=== PATIENT | female | born 1960 | race Two or more races ===

== ENCOUNTER 2020-05-01 11:09 | Outpatient (REF) | payer OTHER, SELFPAY ==
--- NOTE | 2020-05-01 | MM_ITS ---
EXAMINATION: MM SCREENING DIGITAL BREAST TOMOSYNTHESIS, BILATERAL CLINICAL INFORMATION: Screening. Asymptomatic. No known family history breast cancer. Remote history benign left breast surgery. The lifetime risk of breast cancer based on the Tyrer-Cuzick Model is 5%. COMPARISON: Mammography: 02/21/2019, 05/03/2018, 01/12/2017, 11/01/2015 TECHNIQUE: Digital breast tomosynthesis is performed in both the craniocaudal and mediolateral oblique views along with computer-aided detection (CAD). Synthesized 2D images are generated from the tomosynthesis. FINDINGS: There are scattered areas of fibroglandular density (ACR BI-RADS breast composition Category b). There are no significant masses, abnormal calcifications, or other abnormalities. There is asymmetry of the breasts, the right is larger, similar to prior studies. Parenchymal pattern is similar to previous exams. There are no significant changes. IMPRESSION: No significant changes from prior studies. ASSESSMENT: BI-RADS 2: Benign RECOMMENDATION: Routine annual mammography screening. This patient's information was entered into a reminder system with a target due date for their next mammogram.
== END 2020-05-01 11:10 | disposition home or self-care (01) ==
LOC: HO.MAMMO 11:09
PROVIDERS: PCP Internal Medicine; Visit Provider Internal Medicine
DX: Z12.31 Encounter for screening mammogram for malignant neoplasm of breast (principal)
CPT/HCPCS: 77063; 77067

== ENCOUNTER 2020-05-15 08:21 | Outpatient (REF) | payer OTHER, SELFPAY ==
--- NOTE | 2020-05-15 08:25 | XR_ITS ---
EXAMINATION: XR SHOULDER, RIGHT CLINICAL INFORMATION: Pain right shoulder COMPARISON: None TECHNIQUE: AP external rotation, Grashey, scapular Y, and axillary views of the right shoulder. FINDINGS: There is loss of right glenohumeral joint space with inferior spurring. Mild loss of right AC joint as well as noted. No visible acute fracture, dislocation or subluxation seen. There is no lytic process. The soft tissues are normal. XR/XR shoulder RT min 2V IMPRESSION: Mild degenerative changes right shoulder joint. No visible acute fracture or dislocation seen.
== END 2020-05-15 08:22 | disposition home or self-care (01) ==
LOC: HO.HOSX 08:21
PROVIDERS: PCP Internal Medicine; Referring Provider Internal Medicine; Visit Provider Orthopaedic Surgery
DX: M25.511 Pain in right shoulder (principal); M75.51 Bursitis of right shoulder
CPT/HCPCS: 20610; 73030; J1100

== ENCOUNTER 2020-06-16 12:36 | Outpatient (REF) | payer OTHER, SELFPAY ==
[2020-06-16 14:01] LABS: Anion Gap 12 (12-20); Blood Urea Nitrogen 15 mg/dL (9-16); Calcium 9.1 mg/dL (8.4-10.2); Carbon Dioxide 30 mmol/L (22-29); Chloride 105 mmol/L (96-108); Estimated Glomerular Filt Rate 58; Potassium 4.2 mmol/l (3.3-5.1); Sodium 143 mmol/L (135-145)
[2020-06-16 14:23] LABS: Free T4 (Free Thyroxine) 0.75 ng/dL (0.71-1.85); Thyroid Stimulating Hormone 1.66 uIU/mL (0.32-4.0); Vitamin D 25-OH Total 21.8 ng/mL (>30)
[2020-06-18 12:12] LABS: Calcium (PTHI) 9.4 mg/dL (8.6-10.4); PTHI 34 pg/mL (14-64)
== END 2020-06-16 12:37 | disposition home or self-care (01) ==
LOC: HO.LAB 12:36
PROVIDERS: PCP Internal Medicine; Visit Provider Internal Medicine Endocrinology, Diabetes & Metabolism
DX: E21.3 Hyperparathyroidism, unspecified (principal)
CPT/HCPCS: 80051; 82306; 82310; 82565; 83970; 84439; 84443; 84520

== ENCOUNTER 2020-09-26 08:47 | Outpatient (REF) | payer OTHER, SELFPAY | END 2020-09-26 08:48 | disposition home or self-care (01) | LOC: HO.LAB 08:47 | PROVIDERS: Visit Provider Internal Medicine | DX: Z20.822 Contact with and (suspected) exposure to COVID-19 (principal) | CPT/HCPCS: 36415; C9803; U0003; U0005 ==

== ENCOUNTER 2020-11-03 09:57 | Outpatient (REF) | payer OTHER, SELFPAY ==
[2020-11-03 10:19] LABS: COVID-19 Test Negative (Negative)
== END 2020-11-03 09:58 | disposition home or self-care (01) ==
LOC: HO.LAB 09:57
PROVIDERS: Visit Provider Internal Medicine
DX: Z20.822 Contact with and (suspected) exposure to COVID-19 (principal)
CPT/HCPCS: 36415; 87635; C9803

== ENCOUNTER 2021-03-07 08:41 | Outpatient (REF) | payer OTHER, SELFPAY ==
[2021-03-07 11:11] LABS: MANUAL DIFF FLAG NO
[2021-03-07 11:32] LABS: Basophils Absolute Auto 0.1 X10*3/uL (0.0-0.2); Basophils Percent Auto 0.6 % (0-2); Eosinophils Absolute Auto 0.2 X10*3/uL (0.0-0.4); Eosinophils Percent Auto 1.8 % (0-4); Hematocrit 39.8 % (37-47); Hemoglobin 12.9 g/dl (12.0-16.0); Imm Gran Abs Auto 0.05 X10*3/uL (0.00-0.03); Imm Gran Pct Auto 0.5 % (0.0-0.4); Lymphocytes Absolute Auto 3.2 X10*3/uL (1.2-4.9); Mean Corpuscular HGB Conc 32.4 g/dl (31.0-35.0); Mean Corpuscular Hemoglobin 28.7 pg (27.0-33.0); Mean Corpuscular Volume 88.6 fL (80-98); Mean Platelet Volume 10.9 fL (9.4-12.3); Monocytes Absolute Auto 0.5 X10*3/uL (0.1-1.2); Monocytes Percent Auto 5.1 % (2-11); Neutrophils Absolute Auto 5.8 X10*3/uL (2.0-8.3); Platelet Count 209 X10*3/uL (160-400); Red Blood Count 4.49 X10*6/uL (4.20-5.50); Red Cell Distribution Width 13.2 % (11.0-16.0); White Blood Count 9.8 X10*3/uL (4.8-10.8)
[2021-03-07 12:12] LABS: Alanine Aminotransferase 26 U/L (0-31); Anion Gap 12 (12-20); Aspartate Amino Transferase 18 U/L (5-31); Blood Urea Nitrogen 18 mg/dL (9-16); Calcium 9.6 mg/dL (8.4-10.2); Carbon Dioxide 27 mmol/L (22-29); Chloride 107 mmol/L (96-108); Cholesterol 194 mg/dL; Estimated Glomerular Filt Rate > 60; Glucose Fasting 92 mg/dL (60-99); HDL Cholesterol 41 mg/dL; Iron 72 mcg/dL (30-160); LDL Cholesterol Calculated 130 mg/dl; Sodium 142 mmol/L (135-145); Triglycerides 119 mg/dL
[2021-03-07 12:28] LABS: Vitamin D 25-OH Total 18.5 ng/mL (>30)
[2021-03-11 15:06] LABS: Percent Iron Saturation 21 % (15-50); Total Iron Binding Capacity 345 mcg/dL (228-428); Unsaturated Iron Binding 273 ug/dL
== END 2021-03-07 08:42 | disposition home or self-care (01) ==
LOC: HO.HMGCLDS 08:41
PROVIDERS: PCP Internal Medicine; Visit Provider Internal Medicine
DX: E78.5 Hyperlipidemia, unspecified (principal); R10.13 Epigastric pain; R42 Dizziness and giddiness; I10 Essential (primary) hypertension
CPT/HCPCS: 36415; 80048; 80061; 82306; 83540; 84450; 84460; 85025

== ENCOUNTER 2021-05-15 11:12 | Outpatient (REF) | payer OTHER, SELFPAY ==
--- NOTE | ~2021-05-15 | MM_ITS ---
EXAMINATION: MM SCREENING DIGITAL BREAST TOMOSYNTHESIS, BILATERAL CLINICAL INFORMATION: Screening. Asymptomatic. Remote history left breast surgery. The lifetime risk of breast cancer based on the Tyrer-Cuzick Model is 8%. COMPARISON: Mammography: 05/01/2020, 02/21/2019, 05/03/2018 TECHNIQUE: Digital breast tomosynthesis is performed in both the craniocaudal and mediolateral oblique views along with computer-aided detection (CAD). Synthesized 2D images are generated from the tomosynthesis. Additional left MLO view is provided. FINDINGS: There are scattered areas of fibroglandular density (ACR BI-RADS breast composition Category b). There are old postsurgical changes left breast with mild reduced breast size and stable scarring. Parenchymal pattern is similar to prior studies and there is no interval mass or architectural abnormality or abnormal calcifications. The axilla are unremarkable. There is deodorant artifact overlying the bilateral axilla on the MLO views, corresponding to the skin surface on tomography. MM/MM tomosynthesis screening BI IMPRESSION: No mammographic evidence of malignancy. ASSESSMENT: BI-RADS 2: Benign RECOMMENDATION: Routine annual mammography screening. This patient's information was entered into a reminder system with a target due date for their next mammogram.
== END 2021-05-15 11:13 | disposition home or self-care (01) ==
LOC: HO.MAMMO 11:12
PROVIDERS: Visit Provider Internal Medicine
DX: Z12.31 Encounter for screening mammogram for malignant neoplasm of breast (principal)
CPT/HCPCS: 77063; 77067

== ENCOUNTER 2021-08-28 12:33 | Outpatient (REF) | payer OTHER, SELFPAY ==
[2021-08-28 14:08] LABS: MANUAL DIFF FLAG NO
[2021-08-28 14:15] LABS: Basophils Absolute Auto 0.1 X10*3/uL (0.0-0.2); Basophils Percent Auto 0.4 % (0-2); Eosinophils Absolute Auto 0.2 X10*3/uL (0.0-0.4); Eosinophils Percent Auto 1.4 % (0-4); Hemoglobin 13.2 g/dl (12.0-16.0); Imm Gran Abs Auto 0.06 X10*3/uL (0.00-0.03); Imm Gran Pct Auto 0.5 % (0.0-0.4); Lymphocytes Absolute Auto 3.8 X10*3/uL (1.2-4.9); Lymphocytes Percent Auto 34.1 % (20-40); Mean Corpuscular HGB Conc 32.2 g/dl (31.0-35.0); Mean Corpuscular Hemoglobin 28.3 pg (27.0-33.0); Mean Corpuscular Volume 87.8 fL (80.0-98.0); Mean Platelet Volume 11.2 fL (9.4-12.3); Monocytes Absolute Auto 0.6 X10*3/uL (0.1-1.2); Monocytes Percent Auto 5.3 % (2-11); Neutrophils Absolute Auto 6.5 x10*3/uL (2.0-8.3); Neutrophils Percent Auto 58.3 % (45-73); Platelet Count 228 X10*3/uL (160-400); Red Blood Count 4.67 X10*6/uL (4.20-5.50); Red Cell Distribution Width 13.1 % (11.0-16.0); White Blood Count 11.2 X10*3/uL (4.8-10.8)
[2021-08-28 14:30] LABS: Alanine Aminotransferase 20 U/L (0-31); Anion Gap 11 (12-20); Aspartate Amino Transferase 18 U/L (5-31); Blood Urea Nitrogen 12 mg/dL (9-16); Calcium 10.2 mg/dL (8.4-10.2); Carbon Dioxide 30 mmol/L (22-29); Chloride 104 mmol/L (96-108); Cholesterol 205 mg/dL; Estimated Glomerular Filt Rate > 60; Glucose Fasting 82 mg/dL (60-99); HDL Cholesterol 39 mg/dL; LDL Cholesterol Calculated 129 mg/dl; Potassium 4.1 mmol/L (3.3-5.1); Sodium 141 mmol/L (135-145); Triglycerides 185 mg/dL
[2021-08-28 14:53] LABS: Vitamin D 25-OH Total 30.7 ng/mL (>30)
== END 2021-08-28 12:34 | disposition home or self-care (01) ==
LOC: HO.HMGCLDS 12:33
PROVIDERS: Visit Provider Internal Medicine
DX: E55.9 Vitamin D deficiency, unspecified (principal); R42 Dizziness and giddiness; E78.5 Hyperlipidemia, unspecified
CPT/HCPCS: 36415; 80048; 80061; 82306; 84450; 84460; 85025

== ENCOUNTER 2021-09-23 09:49 | Outpatient (REF) | payer OTHER, SELFPAY ==
--- NOTE | ~2021-09-23 | CT_ITS ---
EXAMINATION: CT HEAD WITHOUT CONTRAST CLINICAL INFORMATION: Headache COMPARISON: None. TECHNIQUE: Contiguous axial imaging was performed from the skull base to vertex without intravenous contrast. This CT examination was performed using dose optimization techniques as appropriate, variously including the following: * Automated exposure control * Adjustment of mA and/or kV according to patient size (this includes techniques or standardized protocols for targeted exams where dose is matched to indication/reason for exam; i.e. extremities or head) Use of iterative reconstruction technique DLP: 828 mGy-cm. FINDINGS: There is no evidence of acute intracranial hemorrhage or territorial infarction. No abnormal mass effect or midline shift is seen. [place] to white matter differentiation is well preserved. No extra-axial fluid collections are identified. No hydrocephalus. No significant volume loss. There is no abnormal attenuation within the brain parenchyma. The osseous structures and soft tissues are normal. The mastoid air cells and visualized portions of the paranasal sinuses are well aerated. CT/CT head/brain wo con IMPRESSION: No acute intracranial pathology.
== END 2021-09-23 09:50 | disposition home or self-care (01) ==
LOC: HO.CT 09:49
PROVIDERS: PCP Internal Medicine; Visit Provider Internal Medicine
DX: R51.9 Headache, unspecified (principal)
CPT/HCPCS: 70450

== ENCOUNTER → 2021-11-25 11:11 | Outpatient (BNVA) | payer OTHER, SELFPAY | PROVIDERS: PCP Internal Medicine; Visit Provider Urology | DX: N20.0 Calculus of kidney (principal) ==

== ENCOUNTER 2021-12-23 10:08 | Outpatient (REF) | payer OTHER, SELFPAY ==
--- NOTE | ~2021-12-23 | US_ITS ---
EXAMINATION: US RETROPERITONEAL LIMITED (RENAL ONLY) CLINICAL INFORMATION: Calculus of kidney. COMPARISON: KUB of this same date 12/24/2019 and 08/01/2019 CT abdomen and pelvis without contrast dated 05/15/2019. Renal ultrasound with bladder dated 12/14/2018. Renals only ultrasound dated 05/31/2018. TECHNIQUE: Real-time imaging of the kidneys. FINDINGS: RIGHT KIDNEY: 11.9 x 4.9 x 6.9 cm (SAG x AP x TRV). The kidney is normal in size, contour, and echogenicity. Renal cortical thickness is normal. No focal parenchymal lesions or hydronephrosis. At the lower pole, a 3 mm nonobstructing calculus is seen. LEFT KIDNEY: 11.4 x 6.4 x 5.4 cm (SAG x AP x TRV). The kidney is normal in size, contour, and echogenicity. Renal cortical thickness is normal. No focal parenchymal lesions or hydronephrosis. At the upper pole, a 5 mm nonobstructing calculus is seen. At the lower pole, a 5 mm nonobstructing calculus is seen. US/US renal BI IMPRESSION: Small nonobstructing bilateral renal calculi are seen, as detailed. No hydronephrosis is noted.
--- NOTE | ~2021-12-23 | XR_ITS ---
EXAMINATION: XR ABDOMEN KUB CLINICAL INDICATION: Calculus of kidney. COMPARISON: None TECHNIQUE: AP view of the abdomen. FINDINGS: There is scattered stool and gas seen throughout the colon without any significant distention. There is no organomegaly. No radiopaque foreign body seen. No gross bony abnormality. XR/XR KUB IMPRESSION: Mild constipation. No acute process seen.
== END 2021-12-23 10:09 | disposition home or self-care (01) ==
LOC: HO.HMGCX 10:08
PROVIDERS: PCP Internal Medicine; Visit Provider Urology
DX: N20.0 Calculus of kidney (principal)
CPT/HCPCS: 74018; 76775

== ENCOUNTER 2022-07-02 10:43 | Outpatient (REF) | payer OTHER, SELFPAY ==
--- NOTE | ~2022-07-02 | MM_ITS ---
EXAMINATION: MM SCREENING DIGITAL BREAST TOMOSYNTHESIS, BILATERAL CLINICAL INFORMATION: Screening. Asymptomatic. Remote history benign left breast surgery. The lifetime risk of breast cancer based on the Tyrer-Cuzick Model is 7%. COMPARISON: Mammography: 05/15/2021, 05/01/2020, 02/21/2019 TECHNIQUE: Digital breast tomosynthesis is performed in both the craniocaudal and mediolateral oblique views along with computer-aided detection (CAD). Synthesized 2D images are generated from the tomosynthesis. FINDINGS: There are scattered areas of fibroglandular density (ACR BI-RADS breast composition Category b). There are no significant masses, abnormal calcifications, or other abnormalities. Left breast postsurgical changes are again noted with mild reduced breast size and old scarring. There is no developing density or interval architectural abnormality. No significant changes. MM/MM tomosynthesis screening BI IMPRESSION: No mammographic evidence of malignancy. ASSESSMENT: BI-RADS 2: Benign RECOMMENDATION: Routine annual mammography screening. This patient's information was entered into a reminder system with a target due date for their next mammogram.
== END 2022-07-02 10:44 | disposition home or self-care (01) ==
LOC: HO.MAMMO 10:43
PROVIDERS: Visit Provider Internal Medicine
DX: Z12.31 Encounter for screening mammogram for malignant neoplasm of breast (principal)
CPT/HCPCS: 77063; 77067

== ENCOUNTER → 2022-08-19 09:08 | Outpatient (BNVA) | payer OTHER, SELFPAY | PROVIDERS: PCP Internal Medicine; Visit Provider Orthopaedic Surgery | DX: M75.01 Adhesive capsulitis of right shoulder (principal); M19.011 Primary osteoarthritis, right shoulder | CPT/HCPCS: 20610; J1100 ==

== ENCOUNTER 2022-09-01 08:48 | Outpatient (REF) | payer OTHER, SELFPAY ==
[2022-09-01 12:06] LABS: Hematocrit 42.4 % (37.0-47.0); Hemoglobin 13.4 g/dl (12.0-16.0); Mean Corpuscular HGB Conc 31.6 g/dl (31.0-35.0); Mean Corpuscular Volume 88.7 fL (80.0-98.0); Platelet Count 220 X10*3/uL (160-400); Red Blood Count 4.78 X10*6/uL (4.20-5.50); White Blood Count 10.8 X10*3/uL (4.8-10.8)
[2022-09-01 12:16] LABS: Alanine Aminotransferase 17 U/L (0-31); Albumin Level 4.2 g/dL (3.5-5.0); Alkaline Phosphatase 90 U/L (39-117); Anion Gap 11 (12-20); Aspartate Amino Transferase 13 U/L (5-31); Bilirubin Direct < 0.2 mg/dL (0.0-0.5); Bilirubin Total 0.4 mg/dL (0.0-1.0); Blood Urea Nitrogen 16 mg/dL (9-16); C Reactive Protein 0.61 mg/dL (< or = 0.50); Calcium 9.4 mg/dL (8.4-10.2); Carbon Dioxide 28 mmol/L (22-29); Chloride 107 mmol/L (96-108); Estimated Glomerular Filt Rate > 60; Glucose Random 98 mg/dL (60-115); Potassium 4.1 mmol/L (3.3-5.1); Sodium 142 mmol/L (135-145)
[2022-09-03 15:59] LABS: TS Negative Control Passed; TS Panel A 0; TS Panel B 0; TS Positive Control Passed; TSpotTB Negative (Negative)
== END 2022-09-01 08:49 | disposition home or self-care (01) ==
LOC: HO.HMGCLDS 08:48
PROVIDERS: PCP Internal Medicine; Visit Provider Internal Medicine
DX: Z11.1 Encounter for screening for respiratory tuberculosis (principal); K57.92 Diverticulitis of intestine, part unspecified, without perforation or abscess without bleeding
CPT/HCPCS: 36415; 80048; 80076; 85027; 86140; 86481

== ENCOUNTER 2022-09-04 16:12 | Emergency (ER) | payer OTHER, SELFPAY ==
--- NOTE | ~2022-09-04 | CT_ITS ---
EXAMINATION: CT ABDOMEN AND PELVIS WITH CONTRAST CLINICAL INFORMATION: Left-sided abdominal pain. COMPARISON: Renal ultrasound and KUB December 2021 TECHNIQUE: Multidetector volumetric images were obtained from the superior aspect of the liver through the pubic symphysis following administration 85 mL of Omnipaque 350 intravenous contrast. Sagittal and coronal reformatted images were obtained on the technologist's workstation. Oral contrast: Yes This CT examination was performed using dose optimization techniques as appropriate, variously including the following: *Automated exposure control *Adjustment of mA and/or kV according to patient size (this includes techniques or standardized protocols for targeted exams where dose is matched to indication/reason for exam; i.e. extremities or head) *Use of iterative reconstruction technique DLP: 7-8 mGy-cm FINDINGS: LUNG BASES: The visualized lung bases are unremarkable. LIVER, GALLBLADDER, AND BILIARY TREE: The liver is normal in size, and shape. The liver is low in attenuation suggestive of fatty infiltration. The liver is slightly enlarged.. No focal hepatic lesion or biliary ductal dilatation is present. The gallbladder is unremarkable with no evidence of radiopaque gallstones, gallbladder wall thickening, or obvious pericholecystic inflammatory changes. PANCREAS: Unremarkable. SPLEEN: Unremarkable. ADRENAL GLANDS: Unremarkable. KIDNEYS AND URETERS: There is left renal cortical thinning or scarring. There are small left renal stones, largest measuring 3 mm. There is mild left hydronephrosis. There are 2 small left renal pelvis stones, largest measuring 3 mm. There are 2 small cysts in the lower pole the left kidney compared. No imaging follow-up recommended. The right kidney is normal. No ureteral stone is seen. BLADDER: Unremarkable. GASTROINTESTINAL TRACT: Diverticulosis of the colon. No evidence of diverticulitis. The small and large bowel are unremarkable. The appendix is unremarkable. ABDOMINAL WALL: Small umbilical hernia containing fat. LYMPH NODES: Normal. VASCULAR: Unremarkable. PELVIC VISCERA: Unremarkable. OSSEOUS STRUCTURES: Degenerative changes of the spine CT/CT abdomen pelvis w IV con IMPRESSION: Left renal cortical thinning or scarring. Mild left hydronephrosis. There are small left renal stones and 2 small left renal pelvis stones, largest measuring 3 mm. Diverticulosis of the colon. No evidence of diverticulitis. Enlarged fatty liver. Fleischner guidelines were followed.
[2022-09-04 16:20] VITALS: BP 153/86; PULSE 93; RESP 20; TEMP 36.8; O2SAT 98; BMI 33.4
--- NOTE | 2022-09-04 16:43 | ED.GENADULT ---
HPI - General Adult General Chief complaint: Abdominal Pain Stated complaint: abd pain Time Seen by Provider: 09/04/22 16:30 Source: patient, RN notes reviewed and old records reviewed Mode of arrival: ambulatory Limitations: no limitations History of Present Illness HPI narrative: 61-year-old female past medical history significant for diverticulitis, obstructive uropathy, hyperlipidemia presents for evaluation of abdominal pain. Patient reports that she went to the urgent care 5 days ago for abdominal pain that she has had for about 1 week total now She states that she had some tests done but no imaging and was told ?everything was okay. ? She reports associated nausea vomiting, nonbloody diarrhea She also has decreased appetite. Denies any fevers, chills The patient notes that her pain is worse with eating She denies any history of abdominal surgeries Denies any sick contacts No other complaints or concerns at this time Related Data Previous Rx's Medication Instructions Recorded ciprofloxacin HCl 500 mg tablet 500 mg PO Q12H #14 tabs 09/01/22 omeprazole 20 mg capsule,delayed 20 mg PO DAILY #14 caps 09/01/22 release cefpodoxime 200 mg tablet 200 mg PO BID #14 tabs 09/04/22 ondansetron 4 mg disintegrating 4 mg PO Q8H PRN nausea and 09/04/22 tablet vomiting #20 tabs Allergies Allergy/AdvReac Type Severity Reaction Status Date / Time No Known Allergies Allergy Verified 09/01/22 08:21 [No Known Allergies*] Review of Systems Constitutional: Constitutional: Reports as per HPI, Denies chills and Denies fatigue Cardiovascular: Cardiovascular: Denies chest pain and Denies dyspnea Respiratory: Respiratory: Denies cough and Denies dyspnea Gastrointestinal: Gastrointestinal: Reports abdominal pain, Denies constipation, Reports nausea and Reports vomiting Genitourinary: Genitourinary: Denies dysuria Endocrine: Endocrine: Denies fatigue [facility] Past Medical History Attestation statement: The following information was validated with the patient. Source: old records reviewed Medical History Bursitis of right shoulder Dyslipidemia Epigastric pain Headache disorder High cholesterol Hypercalcemia Hyperparathyroidism Hyperuricosuria Lightheadedness Nephrolithiasis Right shoulder pain Vitamin D deficiency Surgical History H/O lithotripsy Family History Family History Father Asthma Mother Ovarian cancer Social History Social History Housing: Apartment Patient Tobacco Use Status: Never used Tobacco e-Cigarette/Vaping Use: Never Used Second Hand Smoke Exposure: No Advance Directives: No Advance Directives Information Provided: No service: No Current occupational status: employed 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 Physical Exam ED Vital Signs: Vital Signs - 24 hr 09/04/22 16:20 09/04/22 20:11 Temperature 98.3 F 100.4 F Pulse Rate 93 94 Respiratory Rate 20 26 H Blood Pressure 153/86 H 127/68 Pulse Oximetry 98 97 Oxygen Delivery Method Room Air Room Air BMI result Body Mass Index 33.4 Const General: healthy appearing, comfortable, no acute distress, alert and awake Nutritional Appearance: well nourished Orientation/consciousness: patient oriented x3 Eyes EOM: EOMs intact bilaterally Resp Effort & Inspection: normal respiratory effort, able to speak in complete sentences, no audible wheezes and not labored GI Inspection: No Abdominal wall edema, No distended and Yes obesity Palpation (GI): Soft to palpation, Tenderness to palpation present (GI) in the LLQ and in the LUQ; not in the epigastrum, not in the RLQ and not in the RUQ and not rigid Auscultation: normoactive bowel sounds Skin General skin exam: no rashes or lesions noted and elasticity normal Lesions: no lesions Rashes: no rashes Neuro General: patient oriented x3 Extrem General: Yes full ROM Course Reevaluation(s) Reevaluation #1: Patient's pain improved, CT scan shows no evidence of diverticulitis but does show mild left hydronephrosis with some renal stones. No evidence of obstructive uropathy. Patient's UA is consistent with UTI, will treat as such. Time: 20:44 Medications Administered Discontinued Medications Generic Name Dose Route Start Last Admin Trade Name Freq PRN Reason Stop Dose Admin Sodium Chloride 1,000 mls @ 999 mls/hr 09/04/22 16:40 09/04/22 20:47 Ns IV 09/04/22 17:40 Infused .Q1H1M STA Infusion Iohexol 100 ml 09/04/22 18:08 09/04/22 18:09 Iohexol 350 Mg/Ml 100 Ml Infus..Btl IV 09/04/22 18:09 85 ml ONCE ONE Administration Ondansetron HCl 4 mg 09/04/22 16:40 09/04/22 17:23 Ondansetron Hcl 4 Mg/2 Ml Vial IVPUSH 09/04/22 16:41 4 mg ONCE ONE Administration Medical Decision Making Medical Decision Making [facility] Narrative: A 61-year-old female presents for evaluation of 1 week of worsening left-sided abdominal pain. She reports a history of diverticulitis and has associated vomiting and diarrhea. Her vital signs are stable, she is afebrile. We will check labs including CT scan of the abdomen pelvis to evaluate for diverticulitis and/or extent. Review the UA as well. Patient medicated with IV fluids, Zofran. Her physical exam is reassuring, less likely to be surgical abdomen. Differential Diagnosis Diverticulitis Diverticular abscess Microperforation Constipation Colitis Viral syndrome Metabolic abnormality IBS Lab Data 09/04/22 16:47 09/04/22 16:47 Labs: Lab Results 09/04/22 09/04/22 09/04/22 Range/Units 16:47 16:47 20:14 WBC 8.7 (4.8-10.8) X10*3/uL RBC 4.71 (4.20-5.50) X10*6/uL Hgb 13.2 (12.0-16.0) g/dl Hct 40.4 (37.0-47.0) % MCV 85.8 (80.0-98.0) fL MCH 28.0 (27.0-33.0) pg MCHC 32.7 (31.0-35.0) g/dl RDW 13.1 (11.0-16.0) % Plt Count 205 (160-400) X10*3/uL MPV 10.0 (9.4-12.3) fL Absolute Nucleated RBC 0.000 (0.0-0.012) X10*3/uL Nucleated RBC % (auto) 0.0 (0.0-0.2) /100WBC Sodium 141 (135-145) mmol/L Potassium 3.7 (3.3-5.1) mmol/L Chloride 106 (96-108) mmol/L Carbon Dioxide 26 (22-29) mmol/L Anion Gap 13 (12-20) BUN 12 (9-16) mg/dL Creatinine 0.82 (0.5-1.4) mg/dL Estim Creat Clear Calc 82.4 Estimated GFR > 60 Random Glucose 113 (60-115) mg/dL Calcium 8.8 D (8.4-10.2) mg/dL Total Bilirubin 0.6 (0.0-1.0) mg/dL Direct Bilirubin < 0.2 (0.0-0.5) mg/dL AST 13 (5-31) U/L ALT 16 (0-31) U/L Alkaline Phosphatase 86 (39-117) U/L Total Protein 6.8 (6.5-8.0) g/dL Albumin 4.1 (3.5-5.0) g/dL Lipase 18 (8-78) U/L Urine Color Yellow Urine Appearance Clear Urine pH 6.0 (5.0-9.0) Ur Specific [place] 1.020 (1.005-1.025) Urine Protein Negative (Neg-Trace) mg/dL Urine Glucose (UA) Negative (Negative) mg/dL Urine Ketones Negative (Negative) mg/dL Urine Blood Negative (Negative) Urine Nitrite Negative (Negative) Ur Leukocyte Esterase Moderate (2+) H (Negative) Urine RBC 0-2 (0-2) /HPF Urine WBC >50 H (0-5) /HPF Ur Squamous Epith Cells 3-5 (0-2) /HPF Urine Bacteria None Seen (None Seen) Hyaline Casts 0-2 (0-2) /LPF Discharge Plan Discharge Clinical Impression: Urinary tract infection Patient Disposition: Home, Self-Care Instructions: Urinary Tract Infection in Women (ED) Additional Instructions: Your CT scan showed some inflammation around the kidney which could be related to urinary tract infection causing her discomfort. Take cephalexin twice daily for 7 days. Take ondansetron for any further nausea or vomiting. It is possible that he recently passed a kidney stone, but no obstructing stone was seen on your CT scan. You do not have diverticulitis Prescriptions: New cefpodoxime 200 mg tablet 200 mg PO BID Qty: 14 0RF Rx Instructions: must administer with a meal/food ondansetron 4 mg tablet,disintegrating 4 mg PO Q8H PRN (Reason: nausea and vomiting) Qty: 20 0RF No Action ciprofloxacin HCl 500 mg tablet 500 mg PO Q12H Qty: 14 0RF omeprazole 20 mg capsule,delayed release(DR/EC) 20 mg PO DAILY Qty: 14 0RF
[2022-09-04 16:52] LABS: Hematocrit 40.4 % (37.0-47.0); Hemoglobin 13.2 g/dl (12.0-16.0); Mean Corpuscular HGB Conc 32.7 g/dl (31.0-35.0); Mean Corpuscular Volume 85.8 fL (80.0-98.0); Platelet Count 205 X10*3/uL (160-400); Red Blood Count 4.71 X10*6/uL (4.20-5.50); Red Cell Distribution Width 13.1 % (11.0-16.0); White Blood Count 8.7 X10*3/uL (4.8-10.8)
[2022-09-04 17:09] LABS: Alanine Aminotransferase 16 U/L (0-31); Albumin Level 4.1 g/dL (3.5-5.0); Alkaline Phosphatase 86 U/L (39-117); Anion Gap 13 (12-20); Aspartate Amino Transferase 13 U/L (5-31); Bilirubin Direct < 0.2 mg/dL (0.0-0.5); Bilirubin Total 0.6 mg/dL (0.0-1.0); Blood Urea Nitrogen 12 mg/dL (9-16); Calcium 8.8 mg/dL (8.4-10.2); Carbon Dioxide 26 mmol/L (22-29); Chloride 106 mmol/L (96-108); Creatinine Clr Calc Pharmacy 82.4; Estimated Glomerular Filt Rate > 60; Glucose Random 113 mg/dL (60-115); Lipase 18 U/L (8-78); Potassium 3.7 mmol/L (3.3-5.1); Sodium 141 mmol/L (135-145); Total Protein 6.8 g/dL (6.5-8.0)
[2022-09-04] MEDS: 0.9 % Sodium Chloride 1,000 ML 999 ML IV (17:23)
[2022-09-04] MEDS: ondansetron HCL 4 MG/2 ML VIAL IVPUSH (17:23)
[2022-09-04] MEDS: iohexoL 350 MG/ML 100 ML INFUS..BTL IV (18:09)
[2022-09-04 20:11] VITALS: BP 127/68; PULSE 94; RESP 26; TEMP 38; O2SAT 97
[2022-09-04 20:29] LABS: Appearance Urine Clear; Color Urine Yellow; Glucose Urine UA Negative (Negative); Leukocyte Esterase Urine Moderate (2+) (Negative); Nitrite Urine Negative (Negative); UMIC TRIGGER UACC YES; Urine Blood Negative (Negative); Urine Ketones Negative (Negative); Urine Protein Negative (Neg-Trace)
[2022-09-04 20:34] LABS: Bacteria Urine None Seen (None Seen); Hyaline Casts Urine 0-2 /LPF (0-2); RBC Urine 0-2 /HPF (0-2); UACC Culture Trigger YES; WBC Urine >50 /HPF (0-5)
== END 2022-09-04 21:23 | disposition home or self-care (01) ==
PROVIDERS: Emergency Provider Emergency Medicine; PCP Internal Medicine
DX: N39.0 Urinary tract infection, site not specified (principal); R10.9 Unspecified abdominal pain
CPT/HCPCS: 36415; 74177; 80048; 80076; 81001; 83690; 85027; 87086; 96361; 96374; 99284; J2405; Q9967

== ENCOUNTER 2022-09-17 12:22 | Outpatient (AMB) | payer OTHER, SELFPAY ==
[2022-09-17 12:45] VITALS: BP 138/80; PULSE 78; O2SAT 98; BMI 35.1
--- NOTE | 2022-09-17 12:45 | A.OFFPC_ITS ---
Vital Signs 09/17/22 12:45 Height 5 ft 5 in Weight 211 lb BMI 35.1 BP 138/80 Blood Pressure Location Lt brachial Position Sitting Pulse 78 Pulse Source Pulse Oximeter Pulse Oximetry (%) 98 Oxygen Delivery Method Room Air Intake Visit Reasons: Annual PE Intake Note: Pt is here today for her PE Allergies No Known Allergies [No Known Allergies*] Allergy (Verified 10/16/23 20:11) Medication List - Last Reconciled 09/17/22 by Irma Villalobos MD cefpodoxime 200 mg PO BID omeprazole 20 mg PO DAILY ondansetron 4 mg PO Q8H PRN Tobacco use date assessed: 09/17/22 HPI Annual PE HPI Details 62-year-old lady with dyslipidemia, and history of nephrolithiasis c urrently symptomatic, here today for her physical exam. She currently sees [facility] orthopedics for right shoulder pain. Has been found to have small stones in her kidneys which are currently symptomatic. She is up-to-date with her cervical cancer screening, sees Dr. Couch, up-to-date with her screening mammogram done June 2022, and had a screening colonoscopy done by Dr. Poon in 2015, with repeat screening not due until 2025. She has been feeling well except for having intermittent episodes of palpitations, not accompanied by chest pain, no shortness of breath, no lightheadedness or headaches reported. 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 1. Little interest or pleasure in doing things: not at all 2. Feeling down, depressed, or hopeless: not at all 3. Trouble falling or staying asleep, or sleeping too much: not at all 4. Feeling tired or having little energy: several days 5. Poor appetite or overeating: several days 6. Feeling bad about yourself - or that you are a failure or have let yourself or your family down: not at all 7. Trouble concentrating on things, such as reading the newspaper or watching television: not at all 8. Moving or speaking so slowly that other people could have noticed. Or the opposite - being so fidgety or restless that you have been moving around a lot more than usual: not at all 9. Thoughts that you would be better off or of hurting yourself in some way: not at all Total score: 2 Depression Screening Interpretation: Negative 48655 - PHQ-9 Billing: Yes Source: Developed by Drs. Amrik Pulliam, Shannon Cali, Orlando Colby and colleagues, with an educational gillian from [employer]. Thrive Questionnaire Declines Thrive assessment: No Date Thrive assessed: 09/17/22 I am a: Patient What is your living situation today?: I have a steady place to live Within the past 12 months, did the food you bought not last and you didn't have the money to get more?: Never true Within the past 12 months, did you worry whether your food would run out before you got money to buy more?: Never true Do you have trouble paying for medicines?: No Do you have trouble getting transportation to medical appointments?: No Do you have trouble paying your heating and electricity bill?: No Do you have trouble taking care of your child, family member or friend?: No Do you have trouble with day-to-day activities such as bathing, preparing meals, shopping, managing finances, etc.?: No Are you currently unemployed and looking for a job?: No Are you interested in more education?: Yes AUDIT C Alcohol Use Questionnaire (AUDIT-C) 1. How often do you have a drink containing alcohol?: Monthly or less 2. How many drinks containing alcohol do you have on a typical day when you are drinking?: 1 or 2 3. How often do you have six or more drinks on one occasion?: Never Total Score: 1 BRIA-7 AMB Questionnaire BRIA-7 Date BRIA - 7 assessed: 09/17/22 Feeling nervous, anxious, or on edge: 1 = Several days Not being able to stop or control worryin = Several days Worrying too much about different things: 1 = Several days Trouble relaxin = Not at all Being so restless that it is hard to sit still: 0 = Not at all Becoming easily annoyed or irritable: 0 = Not at all Feeling afraid as if something awful might happen: 0 = Not at all Total BRIA-7 score (0-4 normal; 5-9 mild; 10-14 moderate; 15-21 severe): 3 Source: Developed by Drs. Amrik Pulliam, Shannon Cali, Orlando Colby and colleagues, with an educational gillian from [employer]. Physical exam (Primary Care) Vital Signs: Last Vital Signs Pulse 78 09/17/22 12:45 BP 138/80 09/17/22 12:45 Pulse Ox 98 09/17/22 12:45 Oxygen Delivery Method Room Air 09/17/22 12:45 BMI result Body Mass Index 35.1 Tobacco/Smoking Status: Tobacco use Status Tobacco use date assessed 09/17/22 09/17/22 12:49 Patient Tobacco Use Status Never used Tobacco 09/17/22 12:49 e-Cigarette/Vaping Use Never Used 09/17/22 12:49 PHQ-9: PHQ-9 Score PHQ-9: Total score 12 09/17/22 13:40 Depression Screening Interpretation: Negative Thrive Assessment: Date of Thrive Assessment Date Thrive assessed 09/17/22 09/17/22 12:53 Const General: no acute distress and alert Orientation/consciousness: patient oriented x3 HENMT Head: Yes normocephalic and Yes atraumatic Ears: external ears normal, TM's normal bilaterally and EAC's normal General nose exam: Normal external nose present Face and sinus: Yes face symmetric Mouth: Normal oral and palatal mucosa present, oropharynx normal and moist mucous membranes Eyes General: appearance normal, both eyes and all related structures Conjunctivae: conjunctivae normal Pupils: Equal, round and reactive pupils present EOM: EOMs intact bilaterally Neck Neck: Yes full ROM, Yes no lymphadenopathy and Yes supple Thyroid: Thyroid normal Chest Breast/axilla inspection: normal inspection of the breasts Breast/axilla palpation: normal palpation of the breasts Resp Effort & Inspection: normal respiratory effort and able to speak in complete sen tences Auscultation: clear to auscultation bilaterally Cardio Rate: regular rate Rhythm: regular rhythm Heart sounds: S1 normal heart sound present and S2 normal heart sound present GI Palpation (GI): Soft to palpation, nontender, no guarding and no masses Auscultation: normal bowel sounds General: Yes no CVA tenderness (Up-to-date with her cervical cancer screening, sees Dr. Couch) Back/Spine/Pelvis Back: no CVA tenderness (Up-to-date with her cervical cancer screening, sees Dr. Couch) and No back tenderness Skin General skin exam: no rashes or lesions noted Neuro General: patient oriented x3, gait normal, moves all extremities, Normal light touch and pain sensation, no focal motor deficits and CN's II-XI intact bilaterally Cranial nerves: Yes Equal, round and reactive pupils present Cognition (Neuro): normal cognition Gait exam (Neuro): Normal gait present Motor exam (neuro): 5/5 motor strength present throughout Extrem Other: Decreased range of motion right shoulder General: Yes normal to inspection, Yes no joint enlargement, Yes no pedal edema and Yes normal gait Psych Appearance: grossly normal and well kempt Mental Status: mental status grossly normal Speech and movement: Normal speech and movement present Affect: normal affect Thought process: Normal thought process present Thought content: Normal thought content present Assessment and Plan Assessment & Plan (1) Annual visit for general adult medical examination with abnormal findings: Code(s): Z00.01 - Encounter for general adult medical examination with abnormal findings Plan: Will check appropriate labs. Recommended dental visit every 6 months and regular eye exams, at least every 2 years. Take adequate calcium in diet and vitamin-D 3 at 2000 IU per cap once a day, in addition to weight-bearing exercises to help maintain good muscle tone and weight control. Instructed to do self-breast exam, and recommended to getcontinue yearly mammogram, currently up-to-date due again in June 2023. She is up-to-date with cervical cancer screening, sees OBGYN at [place].. Up-to-date with her screening colonoscopy, last done [address] Poon due again in 2025. Has had 2 COVID vaccines, declines getting boosters. Declines flu shot, up-to-date with shingles vaccine and Tdap (2) Adhesive capsulitis of right shoulder: Code(s): M75.01 - Adhesive capsulitis of right shoulder Plan: Currently followed by Dr. Nicholson (3) Vitamin D deficiency: Code(s): E55.9 - Vitamin D deficiency, unspecified Plan: Will check vitamin-D level (4) Dyslipidemia: Code(s): E78.5 - Hyperlipidemia, unspecified Plan: Fasting lipid panel ordered, continue with low-cholesterol diet and regular exercise (5) Nephrolithiasis: Code(s): N20.0 - Calculus of kidney Plan: Currently asymptomatic (6) Intermittent palpitations: Code(s): R00.2 - Palpitations Plan: EKG done today showed normal sinus rhythm with no acute ST-T changes, labs ordered to check TSH with free T4, and CBC Orders: Orders Aspartate Amino Transferase 09/17/22 M75.01 - Adhesive capsulitis of right joshua jay, E55.9 - Vitamin D deficiency, unspecified, E78.5 - Hyperlipidemia, unspecified, Z00.01 - Encounter for general adult medical examination with abnormal findings, N20.0 - Calculus of kidney, R00.2 - Palpitations Basic Metabolic Panel Fasting 09/17/22 M75.01 - Adhesive capsulitis of right shoulder, E55.9 - Vitamin D deficiency, unspecified, E78.5 - Hyperlipidemia, un specified, Z00.01 - Encounter for general adult medical examination with abnormal findings, N20.0 - Calculus of kidney, R00.2 - Palpitations TSH reflex Free T4 09/17/22 M75.01 - Adhesive capsulitis of right shoulder, E55.9 - Vitamin D deficiency, unspecified, E78.5 - Hyperlipidemia, unspecified, Z00.01 - Encounter for general adult medical examination with abnormal findings, N20.0 - Calculus of kidney, R00.2 - Palpitations Vitamin D 25-OH Total 09/17/22 M75.01 - Adhesive capsulitis of right shoulder, E55.9 - Vitamin D deficiency, unspecified, E78.5 - Hyperlipidemia, unspecified, Z00.01 - Encounter for general adult medical examination with abnormal findings, N20.0 - Calculus of kidney, R00.2 - Palpitations Lipid Panel 09/17/22 M75.01 - Adhesive capsulitis of right shoulder, E55.9 - Vitamin D deficiency, unspecified, E78.5 - Hyperlipidemia, unspecified, Z00.01 - Encounter for general adult medical examination with abnormal findings, N20.0 - Calculus of kidney, R00.2 - Palpitations Alanine Aminotransferase 09/17/22 M75.01 - Adhesive capsulitis of right shoulder, E55.9 - Vitamin D deficiency, unspecified, E78.5 - Hyperlipidemia, unspecified, Z00.01 - Encounter for general adult medical examination with abnormal findings, N20.0 - Calculus of kidney, R00.2 - Palpitations Complete Blood Count Auto Diff 09/17/22 E78.5 - Hyperlipidemia, unspecified, Z00.01 - Encounter for general adult medical examination with abnormal findings, E55.9 - Vitamin D deficiency, unspecified, N20.0 - Calculus of kidney, R00.2 - Palpitations AMB EKG-In Office 09/17/22 R00.2 - Palpitations, Z00.01 - Encounter for general adult medical examination with abnormal findings Coding Level of Care Code Est Pt Prev Care 40-64y(42652) Diagnoses Annual visit for general adult medical examination with abnormal findings Z00.01 Adhesive capsulitis of right shoulder M75.01 Vitamin D deficiency E55.9 Dyslipidemia E78.5 Nephrolithiasis N20.0 Intermittent palpitations R00.2
== END 2022-09-17 15:30 | disposition home or self-care (01) ==
LOC: HO.HMGC 12:22
PROVIDERS: PCP Internal Medicine; Visit Provider Internal Medicine
DX: Z00.01 Encounter for general adult medical examination with abnormal findings (principal); M75.01 Adhesive capsulitis of right shoulder; E55.9 Vitamin D deficiency, unspecified; E78.5 Hyperlipidemia, unspecified; N20.0 Calculus of kidney; R00.2 Palpitations
CPT/HCPCS: 99499

== ENCOUNTER 2022-10-04 07:58 | Outpatient (REF) | payer OTHER, SELFPAY ==
[2022-10-04 08:05] LABS: MANUAL DIFF FLAG NO
[2022-10-04 09:20] LABS: Basophils Absolute Auto 0.1 X10*3/uL (0.0-0.2); Basophils Percent Auto 0.6 % (0-2); Eosinophils Absolute Auto 0.2 X10*3/uL (0.0-0.4); Eosinophils Percent Auto 2.2 % (0-4); Hematocrit 41.2 % (37.0-47.0); Hemoglobin 13.1 g/dl (12.0-16.0); Imm Gran Abs Auto 0.05 X10*3/uL (0.00-0.03); Imm Gran Pct Auto 0.5 % (0.0-0.4); Lymphocytes Absolute Auto 3.7 X10*3/uL (1.2-4.9); Lymphocytes Percent Auto 38.2 % (20-40); Mean Corpuscular HGB Conc 31.8 g/dl (31.0-35.0); Mean Corpuscular Hemoglobin 27.7 pg (27.0-33.0); Mean Corpuscular Volume 87.1 fL (80.0-98.0); Mean Platelet Volume 10.8 fL (9.4-12.3); Monocytes Absolute Auto 0.5 X10*3/uL (0.1-1.2); Monocytes Percent Auto 4.6 % (2-11); Neutrophils Absolute Auto 5.2 x10*3/uL (2.0-8.3); Neutrophils Percent Auto 53.9 % (45-73); Platelet Count 218 X10*3/uL (160-400); Red Blood Count 4.73 X10*6/uL (4.20-5.50); Red Cell Distribution Width 13.3 % (11.0-16.0); White Blood Count 9.7 X10*3/uL (4.8-10.8)
[2022-10-04 10:41] LABS: Alanine Aminotransferase 21 U/L (0-31); Anion Gap 14 (12-20); Aspartate Amino Transferase 16 U/L (5-31); Calcium 9.3 mg/dL (8.4-10.2); Carbon Dioxide 28 mmol/L (22-29); Chloride 104 mmol/L (96-108); Cholesterol 240 mg/dL; Estimated Glomerular Filt Rate > 60; Glucose Fasting 99 mg/dL (60-99); HDL Cholesterol 41 mg/dL; LDL Cholesterol Calculated 161 mg/dl; Sodium 142 mmol/L (135-145); TSH reflex Free T4 1.87 uIU/mL (0.32-4.0); Triglycerides 193 mg/dL; Vitamin D 25-OH Total 21.2 ng/mL (>30)
[2022-10-04 12:06] LABS: Blood Urea Nitrogen 13 mg/dL (9-16)
== END 2022-10-04 07:59 | disposition home or self-care (01) ==
LOC: HO.LAB 07:58
PROVIDERS: PCP Internal Medicine; Visit Provider Internal Medicine
DX: Z00.01 Encounter for general adult medical examination with abnormal findings (principal); R00.2 Palpitations; N20.0 Calculus of kidney; E55.9 Vitamin D deficiency, unspecified; E78.5 Hyperlipidemia, unspecified; M75.01 Adhesive capsulitis of right shoulder
CPT/HCPCS: 36415; 80048; 80061; 82306; 84443; 84450; 84460; 85025

== ENCOUNTER 2022-10-13 17:00 | Outpatient (RCR) | payer OTHER, SELFPAY ==
--- NOTE | 2022-09-23 09:42 | MHC.PT.EP ---
[facility] [place] Office [place] Office [place] Office [address] Rosaura Bates [address] [phone] F: [phone] F: [phone] F: [phone] F: [phone] Physical Therapy Plan of Care Date of Evaluation: Date of Surgery: n/a Diagnosis: adhesive capsulitis of R shoulder Assessment: Patient is a 61 year old female presenting to PT with complaints of pain in her R shoulder. Pt reports onset of pain began about 2 months ago due to insidious onset. She presents today with impairments in pain, R shoulder ROM, R shoulder strength, posture. 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 Pt expresses group home goal of returning to PLOF, and is motivated to work towards this in PT. Clinical presentation today is most consistent with signs and sx associated with R shoulder pain and pt will benefit from skilled PT 2 week x 5 weeks to address the following problems and impairments noted upon evaluation: pain, R shoulder ROM, R shoulder strength, posture. These problems limit the patient with the following functional activities: ADLs, reaching, lifting. The prescribed treatment plan of care is medically necessary. Co-morbidities of none were identified and taken into considerations of plan of care. Pt was educated on HEP, role of PT, prognosis, POC. Frequency and Duration: The patient will be seen 2 x week x 5 weeks Short Term Goals: Pt will demonstrate improved R shoulder AROM in all directions by 20 degrees for improved ability to reach in 3 weeks. Pt will demonstrate improved R shoulder MMT strength by 1/3 grade in all directions in 3 weeks. Pt will demonstrate improved postural awareness by sitting with biomechanically correct posture without cues throughout session to improve overall postural function in 3 weeks. Retirement Goals: Pt will demonstrate improved SPADI score by 13 points in 5 weeks for improved functional mobility. Pt will demonstrate ability to complete ADLs with min to no pain in 5 weeks for return to PLOF. Pt will demonstrate ability to reach and lift household items with min to no pain in 5 weeks for return to PLOF. Treatment Plan: Modalities to reduce pain, spasms and effusion. Manual therapy to restore motion and function. Therapeutic exercise to improve strength and flexibility. Neuromuscular re-education for posture and balance. Therapeutic activities to return to functional activities of daily living. Electronically signed by: Saira Garcia, PT, DPT, ATC Please sign and return to therapist. Thank you for your referral.
--- NOTE | 2022-10-28 08:07 | MHC.PT.DC ---
[facility] [place] Office [place] Office [place] Office [address] Rosaura Bates [address] [phone] F: [phone] F: [phone] F: [phone] F: [phone] Physical Therapy Discharge Report Diagnosis: adhesive capsulitis of R shoulder Date of Surgery: n/a Date of Evaluation: 09/23/22 Date of Discharge: 10/28/22 Treatments to Date: 3 Cancellations to Date: 1 No Shows to Date: 2 Discharge Status: Visit Non-compliance Discharge Summary: Pt has failed to comply with [facility] attendance policy and no showed her last 2 scheduled appointments. Electronically signed by: Saira Garcia, PT, DPT, ATC Please sign and return to therapist. Thank you for your referral.
== END 2022-10-28 08:07 | disposition home or self-care (01) ==
LOC: HO.PTCHIC 17:00
PROVIDERS: PCP Internal Medicine; Visit Provider Orthopaedic Surgery
DX: M75.01 Adhesive capsulitis of right shoulder (principal)
CPT/HCPCS: 97110; 97161

== ENCOUNTER 2022-10-18 09:19 | Outpatient (REF) | payer OTHER, SELFPAY ==
--- NOTE | ~2022-10-18 | XR_ITS ---
EXAMINATION: XR SHOULDER, RIGHT CLINICAL INFORMATION: Pain. COMPARISON: Radiographs dated 05/15/2020. TECHNIQUE: AP neutral, scapular Y, and axillary views of the right shoulder. FINDINGS: There is bony demineralization. Bony alignment is normal. The glenohumeral joint is intact and shows moderate osteoarthritic change. The acromioclavicular and coracoclavicular intervals are normal. There is mild osteoarthritic change of the acromioclavicular joint. No fracture or dislocation is seen. There is no abnormal soft tissue calcification or foreign body. There is cortical irregularity of the greater tuberosity of the proximal right humerus. No right pneumothorax is seen. XR/XR shoulder RT min 2V IMPRESSION: 1. There is mild osteoarthritic change of the right glenohumeral and acromioclavicular joints. 2. Findings suggest possible right rotator cuff impingement. No aviva calcific tendinitis is noted.
== END 2022-10-18 09:20 | disposition home or self-care (01) ==
LOC: HO.HOSX 09:19
PROVIDERS: PCP Internal Medicine; Visit Provider Orthopaedic Surgery
DX: M19.011 Primary osteoarthritis, right shoulder (principal); M75.01 Adhesive capsulitis of right shoulder; M75.51 Bursitis of right shoulder
CPT/HCPCS: 20610; 73030; J1100

== ENCOUNTER 2022-12-01 10:47 | Emergency (ER) | payer OTHER, SELFPAY ==
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
[2022-12-01 11:06] VITALS: BP 149/79; PULSE 73; RESP 18; TEMP 36.6; O2SAT 99; BMI 36.6
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
== END 2022-12-01 13:40 | disposition home or self-care (01) ==
PROVIDERS: Emergency Provider Student in an Organized Health Care Education/Training Program; PCP Internal Medicine
DX: S13.4XXA Sprain of ligaments of cervical spine, initial encounter (principal); R51.9 Headache, unspecified; M54.2 Cervicalgia; V43.52XA Car driver injured in collision with other type car in traffic accident, initial encounter; Y93.9 Activity, unspecified; Y92.410 Unspecified street and highway as the place of occurrence of the external cause; Y99.9 Unspecified external cause status
CPT/HCPCS: 70450; 72125; 99282; 99284

== ENCOUNTER 2023-01-06 09:55 | Outpatient (REF) | payer OTHER, SELFPAY ==
[2023-01-13 02:33] LABS: HPV mRNA E6/E7 rflx Not Detected (Not Detected)
== END 2023-01-06 09:56 | disposition home or self-care (01) ==
LOC: HO.LNP 09:55
PROVIDERS: PCP Internal Medicine; Visit Provider Obstetrics & Gynecology
DX: Z01.419 Encounter for gynecological examination (general) (routine) without abnormal findings (principal); D25.9 Leiomyoma of uterus, unspecified
CPT/HCPCS: 87624; 88142

== ENCOUNTER 2023-01-27 10:15 | Outpatient (REF) | payer OTHER, SELFPAY ==
--- NOTE | ~2023-01-27 | US_ITS ---
EXAMINATION: US PELVIS CLINICAL INFORMATION: Leiomyoma of uterus COMPARISON: Portions of CT 09/04/22 TECHNIQUE: Ultrasound of the pelvis is performed using both transabdominal and transvaginal transducers along with Doppler. Transvaginal imaging is performed due to inadequate visualization transabdominally. FINDINGS: Uterus: The uterus is anteverted and measures 9.0 x 2.8 x 3.9 cm. The estimated cervical length is approximately 2.5 cm The double wall endometrial thickness is 5 mm. The uterine contour is slightly lobular due to rounded areas of altered echotexture. 2 rounded myometrial masses were documented Posterior superior myometrium 01/27/23-2.1 cm 07/25/17-3.0 cm Anterior uterine fundus 12/28/22-0.8 cm 07/25/17-1.5 cm No suspicious adnexal mass or collection Adnexa: Both ovaries are visualized. There is normal color flow to the adnexa. There is no ovarian torsion. There is no pelvic ascites or fluid collection. Right ovary measures 1.9 x 1.5 x 0.8 cm. The estimated right ovarian volume is slightly greater than 1 mL Left ovary measures 2.1 x 1.0 x 0.8 cm. The estimated left ovarian volume is approximately 1 mL US/US pelvic and transvaginal IMPRESSION: Interval slight decrease in size of myometrial masses most likely fibroids No new suspicious abnormality
== END 2023-01-27 10:16 | disposition home or self-care (01) ==
LOC: HO.US 10:15
PROVIDERS: PCP Internal Medicine; Visit Provider Obstetrics & Gynecology
DX: D25.9 Leiomyoma of uterus, unspecified (principal)
CPT/HCPCS: 76830; 76856

== ENCOUNTER 2023-06-23 13:22 | Outpatient (AMB) | payer OTHER, SELFPAY ==
--- NOTE | 2023-06-23 13:31 | A.OFFVIS_ITS ---
Intake Vital Signs 06/23/23 13:32 Height 5 ft 5 in Weight 213 lb BMI 35.4 BP 136/82 Intake Visit Reasons: Ultrasound follow up [employer] Systems [employer] Required: No Allergies No Known Allergies [No Known Allergies*] Allergy (Verified 06/23/23 13:33) Is last menstrual period known: No Post menopausal: Yes Patient : No HPI HPI Comments History of Present Illness Details Presenting for ultrasound follow-up regarding myomas. No pelvic pain , vaginal bleeding or pressure symptoms. Pelvic ultrasound showed the following: Uterus: The uterus is anteverted and measures 9.0 x 2.8 x 3.9 cm. The estimated cervical length is approximately 2.5 cm The double wall endometrial thickness is 5 mm. The uterine contour is slightly lobular due to rounded areas of altered echotexture. 2 rounded myometrial masses were documen naresh Posterior superior myometrium 01/27/23-2.1 cm 07/25/17-3.0 cm Anterior uterine fundus 12/28/22-0.8 cm 07/25/17-1.5 cm No suspicious adnexal mass or collection Adnexa: Both ovaries are visualized. There is normal color flow to the adnexa. There is no ovarian torsion. There is no pelvic ascites or fluid collection. Right ovary measures 1.9 x 1.5 x 0.8 cm. The estimated right ovarian volume is slightly greater than 1 mL Left ovary measures 2.1 x 1.0 x 0.8 cm. The estimated left ovarian volume is approximately 1 mL The patient is asking about ovarian cancer screening since she her mom of ovarian cancer in 2012 no genetic testing was done back then [facility] Medical History Headache disorder Vitamin D deficiency Lightheadedness Epigastric pain Dyslipidemia Bursitis of right shoulder Right shoulder pain Nephrolithiasis Hypercalcemia Hyperuricosuria High cholesterol Hyperparathyroidism Surgical History H/O lithotripsy Family History Father Asthma Mother Ovarian cancer Social History Housing: Apartment Patient Tobacco Use Status: Never used Tobacco e-Cigarette/Vaping Use: Never Used Second Hand Smoke Exposure: No Patient : No service: No Current occupational status: employed 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 needs: No Hearing needs: No Vision needs: Yes Female Reproductive History Menstrual Age of Menarche: 15 control method: none Review of Systems Const All systems reviewed & are unremarkable except as noted in HPI and below Reports as per HPI and Reports no additional complaints GI Reports no additional complaints Reports no additional complaints Physical Exam Vital Signs: Last Vital Signs BP 136/82 06/23/23 13:32 BMI result Body Mass Index 35.4 Assessment & Plan Assessment & Plan (1) Uterine myoma: Code(s): D25.9 - Leiomyoma of uterus, unspecified Plan: Discussed with the patient the findings on pelvic ultrasound & the risk of myosarcoma; discussed with the patient the options of treatment including expectant management versus hysterectomy; the pros and cons, risks benefits of each approach were discussed with the patient including the fact that in cases of myosarcoma, surgical treatment can lead to early diagnosis and positively affects the prognosis; after further discussion, the patient decided to proceed with expectant management. Will repeat pelvic ultrasound periodically. Instructions given to patient to call in case any of the following occurs: pressure symptoms, abnormal uterine bleeding, pelvic pain; and to schedule a future office follow-up appointment for reassessment and to order a repeat ultrasound . All questions answered, the patient verbalized understanding and agreed with the plan . (2) Family history of ovarian cancer: Code(s): Z80.41 - Family history of malignant neoplasm of ovary Plan: Discussed with the patient the following information regarding screening for ovarian ca: CA 125, the most widely studied tumor marker for ovarian cancer screening, is elevated in 50 to 90 percent of women with early ovarian cancer but also can be elevated in numerous other conditions. There is no evidence to support using Ca 125 as a screening in average-risk women Serial measurements of CA 125, using an algorithm that incorporates age and rate of change, may improve the positive predictive value of screening but not sufficiently to incorporate into clinical practice at this time. Transvaginal ultrasonography when used as a sole screening intervention has not been effective in identifying early-stage cancer. There is no evidence to suggest screening average-risk women for ovarian cancer Family history is essential to identify patients with potential hereditary/familial cancer syndrome. Example BRCA1 , BRCA2, Justice syndrome or others -High-risk family history with positive genetic testing will benefit from risk reduction bilateral salpingo-oophorectomy to reduce the risk. -Lower risk family history, patient's with remote family member with ovarian cancer without evidence of hereditary pattern, ovarian cancer risk is increased to a lesser extent than family cancer syndrome. There is no evidence that screening is not effective , therefore ovarian cancer screening is generally not advised, because of the limited evidence of benefits and the potential for harm from the false-positive results. -Average risk patient's, asymptomatic woman at average risk without a genetic predisposition or family history of ovarian cancer, the recommendation is against screening for ovarian cancer since there is no evidence that the benefits of screening for ovarian cancer outweigh the harms related to the ad verse effects of false-positive results. Will refer the patient for genetic cancer screening. Instructed the patient to call our office back in case a referral appointment is not scheduled, missed or canceled so that we will assist on rescheduling another appointment, the patient verbalized understanding agreed with the plan. All questions answered , the patient verbalized understanding. Orders: Referrals Genetics Referral Z80.41 - Family history of malignant neoplasm of ovary Coding Level of Care Code Est Pt Level 3 (82783) Diagnoses Uterine myoma D25.9 Family history of ovarian cancer Z80.41
[2023-06-23 13:32] VITALS: BP 136/82; BMI 35.4
== END 2023-06-23 13:54 | disposition home or self-care (01) ==
PROVIDERS: PCP Internal Medicine; Visit Provider Obstetrics & Gynecology
DX: D25.9 Leiomyoma of uterus, unspecified (principal); Z80.41 Family history of malignant neoplasm of ovary
CPT/HCPCS: 99213

== ENCOUNTER → 2023-06-23 13:22 | Outpatient (BNVA) | payer OTHER, SELFPAY | PROVIDERS: PCP Internal Medicine; Visit Provider Obstetrics & Gynecology ==

== ENCOUNTER 2023-07-15 08:31 | Outpatient (REF) | payer OTHER, SELFPAY ==
--- NOTE | ~2023-07-15 | MM_ITS ---
EXAMINATION: MM SCREENING DIGITAL BREAST TOMOSYNTHESIS, BILATERAL CLINICAL INFORMATION: Screening. Asymptomatic. Remote history benign left breast surgery. COMPARISON: Mammography: 07/02/2022, 05/15/2021, 05/01/2020, 02/21/2019 TECHNIQUE: Digital breast tomosynthesis is performed in both the craniocaudal and mediolateral oblique views along with computer-aided detection (CAD). Synthesized 2D images are generated from the tomosynthesis. An additional full-field left cc view was provided. FINDINGS: There are scattered areas of fibroglandular density (ACR BI-RADS breast composition Category b). There are postsurgical changes again noted in the left breast with mild reduced breast size and scarring. Otherwise, no developing density or area of architectural distortion. Mild vascular calcifications bilaterally. No suspicious calcifications in either breast. No suspicious findings in the right breast. MM/MM tomosynthesis screening BI IMPRESSION: No mammographic evidence of malignancy. ASSESSMENT: BI-RADS BI-RADS 2 - Benign Findings RECOMMENDATION: Routine annual mammography screening. 1 year F/U This examination should not preclude the clinical evaluation of a suspicious palpable abnormality. This patient's information was entered into a reminder system with a target due date for their next mammogram.
== END 2023-07-15 08:32 | disposition home or self-care (01) ==
LOC: HO.MAMMO 08:31
PROVIDERS: PCP Internal Medicine; Referring Provider Obstetrics & Gynecology; Visit Provider Internal Medicine
DX: Z12.31 Encounter for screening mammogram for malignant neoplasm of breast (principal)
CPT/HCPCS: 77063; 77067

== ENCOUNTER → 2023-07-15 09:00 | Outpatient (BNV) | payer OTHER, SELFPAY | PROVIDERS: PCP Internal Medicine; Referring Provider Obstetrics & Gynecology; Visit Provider Radiology Diagnostic Radiology | DX: Z12.31 Encounter for screening mammogram for malignant neoplasm of breast (principal) | CPT/HCPCS: 77063; 77067 ==

== ENCOUNTER 2023-09-23 10:14 | Outpatient (AMB) | payer OTHER, SELFPAY ==
--- NOTE | 2023-09-23 11:11 | A.OFFPC_ITS ---
Vital Signs 09/23/23 11:12 Height 5 ft 5 in Weight 211 lb BMI 35.1 BP 142/84 H Blood Pressure Location Lt brachial Position Sitting Pulse 64 Pulse Source Pulse Oximeter Pulse Oximetry (%) 100 Oxygen Delivery Method Room Air Intake Visit Reasons: Annual PE Intake Note: Pt is here today for PE. Pt states that she has been having headaches and she thinks its because of elevated BP. Pt states that she had pap done recently at [facility]. Allergies No Known Allergies [No Known Allergies*] Allergy (Verified 09/23/23 11:21) Medication List - Last Reconciled 09/23/23 by Irma Villalobos MD No Known Home Meds Tobacco use date assessed: 09/23/23 Dental Screening Dental Screen Date: 09/23/23 Did you have a dental visit in the last 12 months?: Yes Did you have a dental problem in the last 6 months where you did not have access to dental care?: No Was dental information given to patient?: Patient has dentist HPI Annual PE HPI Details 62-year-old lady with known hyperlipidem ia, vitamin-D deficiency, here today for her physical exam. She has been complaining of headaches, noted to have blood pressure elevations on this visit and patient thinks that she might be her blood pressure causing her headaches. Denies any accompanying chest pain, no lightheadedness, no nausea vomiting or shortness of breath. Up-to-date with her cervical cancer screening, goes to [facility] , up-to-date with her screening mammogram done June 2023 and is up-to-date also with her screening colonoscopy done by Dr. 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 1. Little interest or pleasure in doing things: not at all 2. Feeling down, depressed, or hopeless: not at all 3. Trouble falling or staying asleep, or sleeping too much: not at all 4. Feeling tired or having little energy: more than half the days 5. Poor appetite or overeating: more than half the days 6. Feeling bad about yourself - or that you are a failure or have let yourself or your family down: not at all 7. Trouble concentrating on things, such as reading the newspaper or watching television: not at all 8. Moving or speaking so slowly that other people could have noticed. Or the opposite - being so fidgety or restless that you have been moving around a lot more than usual: not at all 9. Thoughts that you would be better off or of hurting yourself in some way: not at all Total score: 4 Depression Screening Interpretation: Negative Depression Screening Done: Yes 20030 - PHQ-9 Billing: Yes Source: Developed by Drs. Amrik Pulliam, Shannon Cali, Orlando Colby and colleagues, with an educational gillian from [employer]. Thrive Questionnaire Date Thrive assessed: 09/23/23 I am a: Patient What is your living situation today?: I have a steady place to live Within the past 12 months, did the food you bought not last and you didn't have the money to get more?: Never true Within the past 12 months, did you worry whether your food would run out before you got money to buy more?: Never true Do you have trouble paying for medicines?: No Do you have trouble getting transportation to medical appointments?: No Do you have trouble paying your heating and electricity bill?: No Do you have trouble taking care of your child, family member or friend?: No Do you have trouble with day-to-day activities such as bathing, preparing meals, shopping, managing finances, etc.?: No Are you currently unemployed and looking for a job?: No Are you interested in more education?: No Please select the resources that you would like help with: None THRIVE Score: 0 AUDIT C Alcohol Use Questionnaire (AUDIT-C) 1. How often do you have a drink containing alcohol?: Monthly or less 2. How many drinks containing alcohol do you have on a typical day when you are drinking?: 1 or 2 3. How often do you have six or more drinks on one occasion?: Never Total Score: 1 Score Reviewed/Action Taken: Yes BRIA-7 AMB Questionnaire BRIA-7 Date BRIA - 7 assessed: 09/23/23 Feeling nervous, anxious, or on edge: 1 = Several days Not being able to stop or control worryin = Not at all Worrying too much about different things: 1 = Several days Trouble relaxin = Several days Being so restless that it is hard to sit still: 0 = Not at all Becoming easily annoyed or irritable: 1 = Several days Feeling afraid as if something awful might happen: 0 = Not at all Total BRIA-7 score (0-4 normal; 5-9 mild; 10-14 moderate; 15-21 severe): 4 Source: Developed by Drs. Amrik Pulliam, Shannon Cali, Orlando Colby and colleagues, with an educational gillian from [employer]. BRIA-7 Assessment Billing BRIA-7 Assessment Tool: BRIA-7 Assessment 91003 Review of Systems Const Denies body aches, Denies fever(s) and Denies weakness Eyes Denies change in vision ENT Denies dizziness, Denies nasal congestion, Denies nasal discharge and Denies sore throat Card Denies chest pain, Denies lightheadedness, Denies palpitations and Denies dyspnea Resp Denies chest congestion, Denies cough, Denies dyspnea and Denies wheezing GI Denies abdominal pain, Denies change in bowel habits and Denies heartburn Denies hematuria, Denies urinary frequency, Denies dysuria and Denies urinary urgency Musc Reports no additional complaints Skin/Breast Denies breast pain, Denies breast mass, Denies lesions and Denies rash Neuro Denies dizziness and Denies weakness Psych Reports no additional complaints Endo Denies polydipsia, Denies polyuria and Denies palpitations Andrew/Lymph Denies easy bruising Aller/Immun Denies seasonal rhinorrhea and Denies wheezing Physical exam (Primary Care) Vital Signs: Last Vital Signs Pulse 64 09/23/23 11:12 BP 142/84 H 09/23/23 11:12 Pulse Ox 100 09/23/23 11:12 Oxygen Delivery Method Room Air 09/23/23 11:12 BMI result Body Mass Index 35.1 Tobacco/Smoking Status: Tobacco use Status Tobacco use date assessed 09/23/23 09/23/23 11:18 Patient Tobacco Use Status Never used Tobacco 09/23/23 11:18 e-Cigarette/Vaping Use Never Used 09/23/23 11:18 PHQ-9: PHQ-9 Score PHQ-9: Total score 13 09/23/23 11:46 Depression Screening Interpretation: Negative Thrive Assessment: Date of Thrive Assessment Date Thrive assessed 09/23/23 09/23/23 11:18 Const General: no acute distress and alert Orientation/consciousness: patient oriented x3 HENMT Head: Yes normocephalic and Yes atraumatic Ears: external ears normal, TM's normal bilaterally and EAC's normal General nose exam: Normal external nose present Face and sinus: Yes face symmetric Mouth: Normal oral and palatal mucosa present, oropharynx normal and moist mucous membranes Eyes General: appearance normal, both eyes and all related structures Eyelids: Yes eyelids normal Conjunctivae: conjunctivae normal Sclerae: sclerae normal Pupils: Equal, round and reactive pupils present EOM: EOMs intact bilaterally Neck Neck: Yes full ROM, Yes no lymphadenopathy and Yes supple Thyroid: Thyroid normal Resp Effort & Inspection: normal respiratory effort and able to speak in complete sentences Auscultation: clear to auscultation bilaterally Cardio Rate: regular rate Rhythm: regular rhythm Heart sounds: S1 normal heart sound present and S2 normal heart sound present GI Palpation (GI): Soft to palpation, nontender, no guarding and no masses Auscultation: normal bowel sounds General: Yes no CVA tenderness (Up-to-date with her cervical cancer screening, sees Dr. Couch) Back/Spine/Pelvis Back: no CVA tenderness (Up-to-date with her cervical cancer screening, sees Dr. Couch) and No back tenderness Skin General skin exam: no rashes or lesions noted Neuro General: patient oriented x3, gait normal, moves all extremities, Normal light touch and pain sensation, no focal motor deficits and CN's II-XI intact bilaterally Cranial nerves: Yes Equal, round and reactive pupils present Cognition (Neuro): normal cognition Gait exam (Neuro): Normal gait present Motor exam (neuro): 5/5 motor strength present throughout Extrem General: Yes normal to inspection, Yes full ROM, Yes no joint enlargement, Yes no pedal edema and Yes normal gait Psych Appearance: grossly normal and well kempt Mental Status: mental status grossly normal Speech and movement: Normal speech and movement present Affect: normal affect Attitude: cooperative Thought process: Normal thought process present Thought content: Normal thought content present Immunizations Boostrix Tdap 2.5 Lf unit-8 mcg-5 Lf/0.5 mL intramuscular syringe Performing Provider: Irma Villalobos MD Performing Location: [facility] Administered by: ARTHUR Le on 09/23/23 11:46 Dose Route Admin Location Dispensed Lot Number Expiration Date NDC Sales Service Route Manager 0.5 mL IM Left Deltoid 0.5 mL [id number] 11/10/25 [id number] [email or web address] VIS Given Date VIS Provided VIS Publication Date 09/23/23 Single Vaccine 21 Eligibility Eligibility Date Funding Source Not [facility] Eligible 09/23/23 Private Assessment and Plan Assessment & Plan (1) Annual visit for general adult medical examination with abnormal findings: Code(s): Z00.01 - Encounter for general adult medical examination with abnormal findings Plan: Will check appropriate labs. Recommended dental visit every 6 months and regular eye exams, at least every 2 years. Take adequate calcium in diet and vitamin-D 3 at 2000 IU per cap once a day, in addition to weight-bearing exercises to help maintain good muscle tone and weight control. Instructed to do self-breast exam, and continue to get yearly mammogram, , currently sees Dr. Couch for her routine Pap and pelvic exam and being followed for her uterine fibroids up-to-date with her screening colonoscopy done by Dr. Poon in 2015, to be repeated again in 2025. Has had COVID vaccines but does not want to get the booster or the flu vaccine, up-to-date with her shingles vaccination, Tdap given today (2) Essential hypertension: Code(s): I10 - Essential (primary) hypertension Plan: Blood pressure goal is less than 130/80. Start lisinopril 5 mg per tablet taken once a day in a.m... Reinforced importance of following a low sodium diet, getting regular exercise, and lowering stress levels. (3) Vitamin D deficiency: Code(s): E55.9 - Vitamin D deficiency, unspecified Plan: Will check vitamin-D level (4) Dyslipidemia: Code(s): E78.5 - Hyperlipidemia, unspecified Plan: Fasting lipid panel ordered, advised to go and follow a low-cholesterol diet and start exercising regularly at least 30 minutes daily. (5) Obesity (BMI 30.0-34.9): Code(s): E66.9 - Obesity, unspecified Plan: Stressed importance of following a healthy diet, cut back on eating a lot of potatoes, sweets, and avoid eating at night before going to bed. Make breakfast the biggest meal of the day, eat a regular lunch, and a light dinner. Will have her see the nurse navigator as well in a week when she checks her blood pressure (6) Uterine myoma: Code(s): D25.9 - Leiomyoma of uterus, unspecified Plan: Followed by OBGYN (7) Nephrolithiasis: Code(s): N20.0 - Calculus of kidney Plan: Currently asymptomatic Orders: Orders Vitamin D 25-OH Total 09/24/23 E55.9 - Vitamin D deficiency, unspecified, E78.5 - Hyperlipidemia, unspecified, Z00.01 - Encounter for general adult medical examination with abnormal findings Basic Metabolic Panel Fasting 09/24/23 E55.9 - Vitamin D deficiency, unspecified, E78.5 - Hyperlipidemia, unspecified, Z00.01 - Encounter for general adult medical examination with abnormal findings Alanine Aminotransferase 09/24/23 E55.9 - Vitamin D deficiency, unspecified, E78.5 - Hyperlipidemia, unspecified, Z00.01 - Encounter for general adult medical examination with abnormal findings Lipid Panel 09/24/23 E55.9 - Vitamin D deficiency, unspecified, E78.5 - Hyperlipidemia, unspecified, Z00.01 - Encounter for general adult medical examination with abnormal findings Aspartate Amino Transferase 09/24/23 E55.9 - Vitamin D deficiency, unspecified, E78.5 - Hyperlipidemia, unspecified, Z00.01 - Encounter for general adult medical examination with abnormal findings TDaP Immunization 09/23/23 Z23 - Encounter for immunization Medications: New lisinopril 5 mg PO DAILY 30 tabs 0RF Coding Level of Care Code Est Pt Prev Care 40-64y(75551) Diagnoses Annual visit for general adult medical examination with abnormal findings Z00.01 Essential hypertension I10 Vitamin D deficiency E55.9 Dyslipidemia E78.5 Obesity (BMI 30.0-34.9) E66.9 Uterine myoma D25.9 Nephrolithiasis N20.0 Additional Codes BRIA-7 Assessment Billing - BRIA-7 Assessment Tool: BRIA-7 Assessment 36154 ([id number])
[2023-09-23 11:12] VITALS: BP 142/84; PULSE 64; O2SAT 100; BMI 35.1
== END 2023-09-23 11:59 | disposition home or self-care (01) ==
PROVIDERS: Visit Provider Internal Medicine
DX: Z00.01 Encounter for general adult medical examination with abnormal findings (principal); I10 Essential (primary) hypertension; E55.9 Vitamin D deficiency, unspecified; E78.5 Hyperlipidemia, unspecified; E66.9 Obesity, unspecified; D25.9 Leiomyoma of uterus, unspecified; N20.0 Calculus of kidney
CPT/HCPCS: 90471; 90715; 99213; 99396

== ENCOUNTER 2023-09-24 09:44 | Outpatient (REF) | payer OTHER, SELFPAY ==
[2023-09-24 12:24] LABS: Alanine Aminotransferase 18 U/L (0-31); Anion Gap 12 (12-20); Aspartate Amino Transferase 15 U/L (5-31); Blood Urea Nitrogen 15 mg/dL (9-16); Calcium 9.4 mg/dL (8.4-10.2); Carbon Dioxide 29 mmol/L (22-29); Chloride 105 mmol/L (96-108); Cholesterol 208 mg/dL (<200); Estimated Glomerular Filt Rate > 60; Glucose Fasting 91 mg/dL (60-99); HDL Cholesterol 36 mg/dL (>40); LDL Cholesterol Calculated 130 mg/dL (<100); Sodium 142 mmol/L (135-145); Triglycerides 214 mg/dL (<150)
== END 2023-09-24 09:45 | disposition home or self-care (01) ==
LOC: HO.HMGCLDS 09:44
PROVIDERS: PCP Internal Medicine; Visit Provider Internal Medicine
DX: Z00.01 Encounter for general adult medical examination with abnormal findings (principal); E78.5 Hyperlipidemia, unspecified; E55.9 Vitamin D deficiency, unspecified
CPT/HCPCS: 36415; 80048; 80061; 82306; 84450; 84460

== ENCOUNTER 2023-10-16 08:24 | Emergency (ER) | payer OTHER, SELFPAY ==
[2023-10-16 08:38] VITALS: BP 171/83; PULSE 62; RESP 18; TEMP 36.7; O2SAT 100; BMI 35.1
--- NOTE | 2023-10-16 09:07 | ECG_ITS ---
Test Reason : DIZZINESS Blood Pressure : / mmHG Vent. Rate : 054 BPM Atrial Rate : 054 BPM P-R Int : 166 ms QRS Dur : 094 ms QT Int : 428 ms P-R-T Axes : 037 004 010 degrees QTc Int : 405 ms Sinus bradycardia Minimal voltage criteria for LVH, may be normal variant ( [place] product ) Borderline ECG No previous ECGs available Referred By: Daxa Delcid Electronically Signed By:NGUYEN LEARY MD
--- NOTE | 2023-10-16 09:08 | ED.NAVMDI ---
HPI - Nausea/Vomiting/Diarrhea General Chief complaint: Nausea/Vomiting/Diarrhea Stated complaint: High BP, nausea, vomiting Time Seen by Provider: 10/16/23 08:49 Source: patient Mode of arrival: ambulatory History of Present Illness HPI Narrative: 62-year-old female with history hypertension, currently on lisinopril 5 mg, comes in with onset of worsening vertigo that is associated with position change as well as nausea and vomiting, patient states that when she lies flat it is much worse. Patient denies any alcohol or illicit substance use, she denies any shortness of breath/sick contacts/urinary symptoms/chest pain or palpitations but does report recent travel history to [place]. Patient reports history of renal colic but denies any abdominal/flank pain. Related Data Previous Rx's Medication Instructions Recorded lisinopril 5 mg tablet 5 mg PO DAILY #30 tabs 09/23/23 cholecalciferol (vitamin D3) 1,250 1,250 mcg PO QWEEK 3 months #13 09/25/23 mcg (50,000 unit) capsule caps Allergies Allergy/AdvReac Type Severity Reaction Status Date / Time No Known Allergies Allergy Verified 10/16/23 08:38 [No Known Allergies*] Review of Systems Review of Systems: Pertinent positives and negatives as stated in HPI PMFSH Past Medical History Source: nursing notes reviewed Medical History Obesity (BMI 30.0-34.9) Essential hypertension Vitamin D deficiency Epigastric pain Dyslipidemia Bursitis of right shoulder Nephrolithiasis Hyperuricosuria Surgical History H/O lithotripsy Family History Family History Father Asthma Mother Ovarian cancer Social History Social History Housing: Apartment Patient Tobacco Use Status: Never used Tobacco e-Cigarette/Vaping Use: Never Used Second Hand Smoke Exposure: No Advance Directives: No Advance Directives Information Provided: No service: No 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 GENERAL: Well developed, well nourished, in no acute distress. HEAD: Normocephalic/atraumatic EYES: PERRLA, EOMI EARS: Ext canals without abnormality NOSE: Nares patent bilateral OROPHARYNX: no oral lesions noted, posterior pharynx clear NECK: Supple, no adenopathy LUNGS: Normal breath sounds. No adventitious sounds or accessory muscle use. SpO2<100> CARDIOVASCULAR: Regular rate and rhythm without noted murmurs ABDOMEN: Soft, non-tender, non-distended with bowel sounds. MUSCULOSKELETAL: No tenderness, deformities, or effusions noted on gross inspection. EXTREMITIES: No cyanosis, clubbing or edema. SKIN: Inspection of the skin reveals no rashes NEUROLOGIC: Alert and oriented x 4. Strength and sensation to light touch were grossly intact x 4. Medications Administered Discontinued Medications Generic Name Dose Route Start Last Admin Trade Name Freq PRN Reason Stop Dose Admin Sodium Chloride 1,000 mls @ 999 mls/hr 10/16/23 11:45 10/16/23 11:47 Ns IV 10/16/23 12:45 999 mls/hr .Q1H1M JULI Administration Meclizine HCl 12.5 mg 10/16/23 10:59 10/16/23 12:14 Meclizine Hcl 12.5 Mg Tablet PO 10/16/23 11:00 12.5 mg ONCE ONE Administration Ondansetron HCl 4 mg 10/16/23 09:10 10/16/23 09:45 Ondansetron Hcl 4 Mg/2 Ml Vial IVPUSH 10/16/23 09:11 4 mg ONCE ONE Administration Medical Decision Making Medical Decision Making MDM Narrative: 62-year-old female with history and clinical presentation, DDX: Viral illness, UTI, lower clinical suspicion for PE/ACS/neurologic. Patient received Zofran. I reviewed all investigations and hematologic indices are negative for leukocytosis/left shift/anemia or thrombocytopenia. Chemistry labs are still pending due to broken lab machine at [facility]. Urinalysis is negative for urinary tract infection or hematuria. Viral testing is negative for influenza or COVID-19. Patient has had no nausea or vomiting since arrival, blood pressure has improved, patient is nonfocal, ambulates with a steady gait, will perform orthostatics at this time and attempt 12.5 mg of meclizine. Patient's orthostatics were positive and will receive 1 L of IV fluids. 1218: Chemistry indices do not demonstrate any ABHILASH or electrolyte/liver enzyme derangements, I sensitivity troponin is undetectable and no significant EKG findings. On re-evaluation patient is tolerating oral intake and feels improved. She is recommended follow-up with her primary care doctor. Differential Diagnosis Differential Diagnoses: The differential diagnosis associated with the presentation includes Please see the discussion above Admission/Observation Consideration of admission/observation: Escalation of care including admission/observation considered Please see the discussion above Lab Data MDM Lab Attestation statement: I reviewed the patient's lab results. Please see the discussion above 10/16/23 09:32 10/16/23 09:32 Labs: Lab Results 10/16/23 10/16/23 Range/Units 09:28 09:32 WBC 9.5 (4.8-10.8) X10*3/uL RBC 4.64 (4.20-5.50) X10*6/uL Hgb 13.1 (12.0-16.0) g/dl Hct 39.6 (37.0-47.0) % MCV 85.3 (80.0-98.0) fL MCH 28.2 (27.0-33.0) pg MCHC 33.1 (31.0-35.0) g/dl RDW 13.2 (11.0-16.0) % Plt Count 227 (160-400) X10*3/uL MPV 10.1 (9.4-12.3) fL Immature Gran % (Auto) 0.7 H (0.0-0.4) % Neut % (Auto) 69.2 (45-73) % Lymph % (Auto) 25.6 (20-40) % Hendricks % (Auto) 3.8 (2-11) % Eos % (Auto) 0.4 (0-4) % Baso % (Auto) 0.3 (0-2) % Lymph # (Auto) 2.4 (1.2-4.9) X10*3/uL Hendricks # (Auto) 0.4 (0.1-1.2) X10*3/uL Eos # (Auto) 0.0 (0.0-0.4) X10*3/uL Baso # (Auto) 0.0 (0.0-0.2) X10*3/uL Abs Immat Gran (auto) 0.07 H (0.00-0.03) X10*3/uL Absolute Neuts (auto) 6.6 (2.0-8.3) x10*3/uL Absolute Nucleated RBC 0.000 (0.0-0.012) X10*3/uL Nucleated RBC % (auto) 0.0 (0.0-0.2) /100WBC PT 13.2 (11.1-13.3) SEC INR 1.1 (0.9-1.1) Sodium 140 (135-145) mmol/L Potassium 4.0 (3.3-5.1) mmol/L Chloride 102 (96-108) mmol/L Carbon Dioxide 27 (22-29) mmol/L Anion Gap 15 (12-20) BUN 11 (9-16) mg/dL Creatinine 0.79 (0.5-1.4) mg/dL Estim Creat Clear Calc 86.6 Estimated GFR > 60 Random Glucose 115 (60-115) mg/dL Calcium 9.4 (8.4-10.2) mg/dL Total Bilirubin 0.3 (0.0-1.0) mg/dL AST 18 (5-31) U/L ALT 27 (0-31) U/L Alkaline Phosphatase 87 (39-117) U/L Troponin I High Sens < 2.7 (<3.5-17.0) ng/L Total Protein 7.4 (6.5-8.0) g/dL Albumin 4.2 (3.5-5.0) g/dL Urine Color Yellow Urine Appearance Clear Urine pH >= 9.0 (5.0-9.0) Ur Specific [place] 1.020 (1.005-1.025) Urine Protein Trace (Neg-Trace) mg/dL Urine Glucose (UA) Negative (Negative) mg/dL Urine Ketones Negative (Negative) mg/dL Urine Blood Negative (Negative) Urine Nitrite Negative (Negative) Ur Leukocyte Esterase Small (1+) H (Negative) Urine RBC 0-2 (0-2) /HPF Urine WBC 6-10 H (0-5) /HPF Ur Squamous Epith Cells 0-2 (0-2) /HPF Urine Bacteria None Seen (None Seen) Hyaline Casts 0-2 (0-2) /LPF COVID-19 (ANDRÉS) Negative (Negative) COVID-19 Clin Com See Note Influenza Type A (NIA) Negative (Negative) Influenza Type B (NIA) Negative (Negative) Influenza A & B Note See Note Independent Interpretation I performed an independent interpretation of an: EKG Interpretation: Sinus bradycardia, HR-54, no STEMI, MO/QRS/QTC is within normal limits. External Record Review External record reviewed: Outpatient record and Prior outpatient labs Chronic Conditions Patient?s care impacted by: Hypertension Critical Care Time Critical Care Time Critical Care Time: Yes Total Critical Care Time: 45 Attestation: I personally attest to this time spent taking care of the patient. Discharge Plan Discharge Clinical Impression: Vertigo Patient Disposition: Home, Self-Care Instructions: Vertigo (ED) Additional Instructions: 1. Follow-up with primary care doctor by calling the office 1st thing on Tuesday morning for re-evaluation and further outpatient management. Return to the ER for any worsening symptoms. Prescriptions: No Action cholecalciferol (vitamin D3) 1,250 mcg (50,000 unit) capsule 1,250 mcg PO QWEEK 90 Days Qty: 13 0RF lisinopril 5 mg tablet 5 mg PO DAILY Qty: 30 0RF Referrals: Irma Villalobos MD [Primary Care Provider] -
[2023-10-16 09:39] LABS: Basophils Percent Auto 0.3 % (0-2); Eosinophils Percent Auto 0.4 % (0-4); Hematocrit 39.6 % (37.0-47.0); Hemoglobin 13.1 g/dl (12.0-16.0); Imm Gran Abs Auto 0.07 X10*3/uL (0.00-0.03); Imm Gran Pct Auto 0.7 % (0.0-0.4); Lymphocytes Absolute Auto 2.4 X10*3/uL (1.2-4.9); Lymphocytes Percent Auto 25.6 % (20-40); MANUAL DIFF FLAG NO; Mean Corpuscular HGB Conc 33.1 g/dl (31.0-35.0); Mean Corpuscular Hemoglobin 28.2 pg (27.0-33.0); Mean Corpuscular Volume 85.3 fL (80.0-98.0); Mean Platelet Volume 10.1 fL (9.4-12.3); Monocytes Absolute Auto 0.4 X10*3/uL (0.1-1.2); Monocytes Percent Auto 3.8 % (2-11); Neutrophils Absolute Auto 6.6 x10*3/uL (2.0-8.3); Neutrophils Percent Auto 69.2 % (45-73); Platelet Count 227 X10*3/uL (160-400); Red Blood Count 4.64 X10*6/uL (4.20-5.50); Red Cell Distribution Width 13.2 % (11.0-16.0); White Blood Count 9.5 X10*3/uL (4.8-10.8)
[2023-10-16 09:40] LABS: Appearance Urine Clear; Color Urine Yellow; Glucose Urine UA Negative (Negative); Leukocyte Esterase Urine Small (1+) (Negative); Nitrite Urine Negative (Negative); PH >= 9.0 (5.0-9.0); UMIC TRIGGER UACC YES; Urine Blood Negative (Negative); Urine Ketones Negative (Negative); Urine Protein Trace mg/dL (Neg-Trace)
[2023-10-16 09:45] LABS: INTERNATIONAL NORM RATIO 1.1 (0.9-1.1); Prothrombin Time 13.2 SEC (11.1-13.3)
[2023-10-16 09:45] LABS: Bacteria Urine None Seen (None Seen); Hyaline Casts Urine 0-2 /LPF (0-2); RBC Urine 0-2 /HPF (0-2); Squamous Epithelial Cell Urine 0-2 /HPF (0-2); UACC Culture Trigger YES
[2023-10-16] MEDS: ondansetron HCL 4 MG/2 ML VIAL IVPUSH (09:45)
[2023-10-16 09:58] LABS: COVID-19 Test Negative (Negative); IDNOW Serial# 08D9AD1C; IDNOW Serial# 152EDE1D; Influenza A Negative (Negative); Influenza B2 Negative (Negative)
[2023-10-16 10:02] VITALS: BP 146/75; PULSE 57; RESP 16; TEMP 36.5; O2SAT 98
[2023-10-16 10:20] LABS: Troponin-I High Sensitivity < 2.7 ng/L (<3.5-17.0)
[2023-10-16 11:04] VITALS: BP 164/73; PULSE 57
[2023-10-16 11:05] VITALS: BP 177/87; PULSE 56
[2023-10-16 11:06] VITALS: BP 150/67; PULSE 58
[2023-10-16] MEDS: 0.9 % Sodium Chloride 1,000 ML 999 ML IV (11:47)
[2023-10-16 12:00] VITALS: BP 149/68; PULSE 59; RESP 18; TEMP 36.7; O2SAT 99
[2023-10-16 12:13] LABS: Alanine Aminotransferase 27 U/L (0-31); Albumin Level 4.2 g/dL (3.5-5.0); Alkaline Phosphatase 87 U/L (39-117); Anion Gap 15 (12-20); Aspartate Amino Transferase 18 U/L (5-31); Bilirubin Total 0.3 mg/dL (0.0-1.0); Blood Urea Nitrogen 11 mg/dL (9-16); Calcium 9.4 mg/dL (8.4-10.2); Carbon Dioxide 27 mmol/L (22-29); Chloride 102 mmol/L (96-108); Creatinine Clr Calc Pharmacy 86.6; Estimated Glomerular Filt Rate > 60; Glucose Random 115 mg/dL (60-115); Sodium 140 mmol/L (135-145); Total Protein 7.4 g/dL (6.5-8.0)
[2023-10-16] MEDS: Meclizine HCl 12.5 MG TABLET PO (12:14)
--- NOTE | 2023-10-16 12:45 | PC.NURSE ---
patient ambulated with steady gait to the bathroom
== END 2023-10-16 13:45 | disposition home or self-care (01) ==
PROVIDERS: Emergency Provider Student in an Organized Health Care Education/Training Program; PCP Internal Medicine
DX: R42 Dizziness and giddiness (principal); I10 Essential (primary) hypertension; Z79.899 Other long term (current) drug therapy; Z11.52 Encounter for screening for COVID-19
CPT/HCPCS: 36415; 80053; 81001; 84484; 85025; 85610; 87086; 87088; 87502; 87635; 93005; 96374; 99284; J2405

== ENCOUNTER → 2023-10-16 09:07 | Outpatient (BNV) | payer OTHER, SELFPAY | PROVIDERS: Emergency Provider Student in an Organized Health Care Education/Training Program; PCP Internal Medicine; Visit Provider Internal Medicine Cardiovascular Disease | DX: R42 Dizziness and giddiness (principal) | CPT/HCPCS: 93010 ==

== ENCOUNTER 2023-10-18 08:02 | Outpatient (AMB) | payer OTHER, SELFPAY ==
--- NOTE | 2023-10-18 08:11 | AM.OFFWIN_ITS ---
Intake Vital Signs 10/18/23 08:12 Height 5 ft 5 in Weight 200 lb BMI 33.3 BP 132/82 Blood Pressure Location Lt brachial Position Sitting Pulse 64 Pulse Source Pulse Oximeter Temp 97.8 F Temp Source Temporal Artery Scan Pulse Oximetry (%) 98 Oxygen Delivery Method Room Air Intake Visit Reasons: EP Vertigo/Seen ED, still not better Intake Note: pt is here for c/o vertigo and light headness and ear pain Patient Tobacco Use Status: Never used Tobacco Allergies No Known Allergies [No Known Allergies*] Allergy (Verified 10/18/23 08:12) Medication List - Last Reconciled 10/18/23 by JERRY Conn cholecalciferol (vitamin D3) 1,250 mcg PO QWEEK 3 months lisinopril 5 mg PO DAILY meclizine 25 mg PO BID-TID PRN Do you need a note to return to daycare/school/sports/work: No HPI HPI Comments History of Present Illness Details 62-year-old female presents today compla ining of hearing loss due to her ears being blocked and also for 5 days of dizziness. She went to the emergency department 2 days ago and was treated for dehydration and nausea. Her symptoms have improved somewhat but she is still complaining of dizziness and this ear block. She does relate she just returned from a flight from to [facility] 6 days ago. She denies fever chills sweats cough shortness of breath or chest pain. 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 needs: No Hearing needs: No Vision needs: Yes Female Reproductive History Menstrual Age of Menarche: 15 Review of Systems Const All systems reviewed & are unremarkable except as noted in HPI and below Eyes Reports no additional complaints ENT Reports dizziness Card Reports no additional complaints Resp Reports no additional complaints GI Reports no additional complaints Neuro Reports dizziness Physical Exam Vital Signs: Last Vital Signs Temp 97.8 F 10/18/23 08:12 Pulse 64 10/18/23 08:12 BP 132/82 10/18/23 08:12 Pulse Ox 98 10/18/23 08:12 Oxygen Delivery Method Room Air 10/18/23 08:12 BMI result Body Mass Index 33.3 Const General: no acute distress HEENT Head: Yes normal to inspection, Yes normocephalic and Yes atraumatic Ears: TM normal on the left and unable to visualize TM on the right (cerumen impaction) General nose exam: Normal external nose present Face and sinus: Yes normal facial exam and Yes sinuses nontender Mouth: Normal oral and palatal mucosa present Throat: Yes posterior oropharynx normal Eyes General: appearance normal, both eyes and all related structures Resp Effort & Inspection: normal respiratory effort Auscultation: clear to auscultation bilaterally Cardio Rate: regular rate Rhythm: regular rhythm Office Procedures Cerumen Removal From which ear canal was the cerumen removed: right Removal: irrigation Notes: patient tolerated procedure well [id number] Irrigation/Lavage Results Reviewed Results Reviewed: Reviewed the results of the ear irrigation with the patient. Assessment & Plan Assessment & Plan (1) Dizziness: Code(s): R42 - Dizziness and giddiness Plan: The patient will take the meclizine as needed to help dizziness. Hopefully the cerumen impaction resolution will resolve the final symptoms. (2) Cerumen impaction: Comment: See plan Code(s): H61.20 - Impacted cerumen, unspecified ear Plan: See plan Plan See plan Medications: New meclizine 25 mg PO BID-TID PRN 10 tabs 0RF dizziness Coding Level of Care Code Est Pt Level 3 (96061) Diagnoses Dizziness R42 Cerumen impaction H61.20 CPT Codes Office Procedure - CPT: 15047-Njk Irrigation/Lavage ([id number])
[2023-10-18 08:12] VITALS: BP 132/82; PULSE 64; TEMP 36.6; O2SAT 98; BMI 33.3
== END 2023-10-18 09:34 | disposition home or self-care (01) ==
PROVIDERS: PCP Internal Medicine; Visit Provider Physician Assistant Medical
DX: R42 Dizziness and giddiness (principal); H61.21 Impacted cerumen, right ear
CPT/HCPCS: 69209; 99213

== ENCOUNTER 2023-12-28 11:35 | Outpatient (AMB) | payer OTHER, SELFPAY ==
[2023-12-28 11:45] VITALS: BP 146/80; PULSE 77; O2SAT 97; BMI 36.3
--- NOTE | 2023-12-28 11:45 | MHC.PC.OV ---
Vital Signs 12/28/23 11:45 Height 5 ft 5 in Weight 218 lb BMI 36.3 BP 146/80 H Blood Pressure Location Lt brachial Position Sitting Pulse 77 Pulse Source Pulse Oximeter Pulse Oximetry (%) 97 Oxygen Delivery Method Room Air Intake Visit Reasons: Follow Up blood pressure Intake Note: Pt is here today for her b/p f/u Allergies No Known Allergies [No Known Allergies*] Allergy (Verified 12/28/23 12:09) Medication List - Last Reconciled 12/28/23 by Irma Villalobos MD No Known Home Meds Tobacco use date assessed: 12/28/23 Dental Screening Dental Screen Date: 12/28/23 Did you have a dental visit in the last 12 months?: Yes Did you have a dental problem in the last 6 months where you did not have access to dental care?: No Was dental information given to patient?: Patient has dentist HPI Follow Up blood pressure HPI Details 63-year-old lady here today for follow-up on her blood pressure. She has been having high blood pressure readings for the past several months. States that she is under lot of stress, had a recent in the family and had to fly to [place]. She denies having any chest pain, no headache or blurred vision, no lightheadedness or shortness of breath reported.. Blood pressure today slightly lower than last check, currently not on any antihypertensive medication. 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 Amrik Pulliam, Shannon Cali, Orlando Colby and colleagues, with an educational gillian from [employer]. Review of Systems Const Denies body aches, Denies fever(s) and Denies weakness Eyes Denies change in vision ENT Denies dizziness, Denies nasal congestion, Denies nasal discharge and Denies sore throat Card Denies chest pain, Denies lightheadedness, Denies palpitations and Denies dyspnea Resp Denies chest congestion, Denies cough, Denies dyspnea and Denies wheezing GI Denies abdominal pain, Denies change in bowel habits and Denies heartburn Denies hematuria, Denies urinary frequency, Denies dysuria and Denies urinary urgency Musc Reports no additional complaints Skin/Breast Denies breast pain, Denies breast mass, Denies lesions and Denies rash Neuro Denies dizziness and Denies weakness Psych Reports no additional complaints Endo Denies polydipsia, Denies polyuria and Denies palpitations Andrew/Lymph Denies easy bruising Aller/Immun Denies seasonal rhinorrhea and Denies wheezing Physical exam (Primary Care) Vital Signs: Last Vital Signs Pulse 77 12/28/23 11:45 BP 146/80 H 12/28/23 11:45 Pulse Ox 97 12/28/23 11:45 Oxygen Delivery Method Room Air 12/28/23 11:45 BMI result Body Mass Index 36.3 Tobacco/Smoking Status: Tobacco use Status Tobacco use date assessed 12/28/23 12/28/23 11:49 Patient Tobacco Use Status Never used Tobacco 12/28/23 11:49 e-Cigarette/Vaping Use Never Used 12/28/23 11:49 Thrive Assessment: Date of Thrive Assessment Date Thrive assessed 09/23/23 12/28/23 11:49 Results Reviewed Results Reviewed: Name: Dorothy Rizo Age/Sex: 62/F : 1960 Unit#: [id number] Attend Dr: Daxa Delcid MD Re10/16/23 Status: DEP ER Location: .ED Disch: SPEC : [id number] GITA: 10/16/23 STATUS: COMP REQ : [id number] RECD: 10/16/[address]: Daxa Delcid MD COMP: 10/16/23 ENTERED: 10/16/23 [facility] [address]: Irma Villalobos MD ORDERED: CMP Test Result Flag Reference Sodium 140 135-145 mmol/L Potassium 4.0 3.3-5.1 mmol/L CL 102 96-108 mmol/L CO2 27 22-29 mmol/L Gap 15 12-20 BUN 11 9-16 mg/dL Creat 0.79 0.5-1.4 mg/dL Estimated CrCl 86.6 Provided height and weight: 165.1 cm, 95.7 kg. eGFR (calculated from the MDRD study equation) and eCrCl (calculated from the Cockcroft-Gault equation) are based on different parameters and may not yield comparable results. If eCrCl result is absurd, please check patient's height/weight. EGFR > 60 NOTE: For -Cymraes individuals, multiply the result by 1.210. Chronic Kidney Disease: Estimated GFR < 60 mL/min/1.73m2 Severe Kidney Disease: Estimated GFR < 15 mL/min/1.73m2 Glucose, Random 115 60-115 mg/dL CA 9.4 8.4-10.2 mg/dL Total Bili 0.3 0.0-1.0 mg/dL AST (GOT) 18 5-31 U/L ALT (GPT) 27 0-31 U/L Protein, Total 7.4 6.5-8.0 g/dL Alb 4.2 3.5-5.0 g/dL Alk Phos 87 39-117 U/L Name: Dorothy Rizo Age/Sex: 62/F : 1960 Unit#: [id number] Attend Dr: Daxa Delcid MD Re10/16/23 Status: DEP Location: [facility] Disch: SPEC : [id number] GITA: 10/16/23 STATUS: COMP REQ : [id number] RECD: 10/16/[address]: Daxa Delcid MD COMP: 10/16/23 ENTERED: 10/16/[address] [facility] [address]: Irma Villalobos MD ORDERED: CBC Auto Diff Test Result Flag Reference WBC 9.5 4.8-10.8 X10*3/uL RBC 4.64 4.20-5.50 X10*6/uL HGB 13.1 12.0-16.0 g/dl HCT 39.6 37.0-47.0 % MCV 85.3 80.0-98.0 fL MCH 28.2 27.0-33.0 pg MCHC 33.1 31.0-35.0 g/dl RDW 13.2 11.0-16.0 % PLT 227 160-400 X10*3/uL MPV 10.1 9.4-12.3 fL Neut Pct Auto 69.2 45-73 % ImGran Pct Auto 0.7 H 0.0-0.4 % Lymp Pct Auto 25.6 20-40 % Grayson Pct Auto 3.8 2-11 % Eos Pct Auto 0.4 0-4 % Baso Pct Auto 0.3 0-2 % NRBC Pct Auto 0.0 0.0-0.2 /100WBC ANC Neut Abs # 6.6 2.0-8.3 x10*3/uL ImGran Abs Auto 0.07 H 0.00-0.03 X10*3/uL Lymph Abs Auto 2.4 1.2-4.9 X10*3/uL Grayson Abs Auto 0.4 0.1-1.2 X10*3/uL Eos Abs Auto 0.0 0.0-0.4 X10*3/uL Baso Abs Auto 0.0 0.0-0.2 X10*3/uL NRBC Abs Auto 0.000 0.0-0.012 X10*3/uL Name: Dorothy Rizo Age/Sex: 62/F : 1960 Unit#: [id number] Attend Dr: Irma Villalobos MD Re09/24/23 Status: DEP REF Location: [facility] Disch: SPEC : [id number] GITA: 09/24/23-1011 STATUS: COMP REQ : [id number] RECD: 09/24/23-[address]: Irma Villalobos MD COMP: 09/24/23-1229 ENTERED: 09/24/23-[address] [facility] [address]: ORDERED: Met Prof Fast, AST, ALT, Lipid Panel, Vitamin D 25-OH Test Result Flag Reference Sodium 142 135-145 mmol/L Potassium 4.0 3.3-5.1 mmol/L CL 105 96-108 mmol/L CO2 29 22-29 mmol/L Gap 12 12-20 BUN 15 9-16 mg/dL Creat 0.77 0.5-1.4 mg/dL EGFR > 60 NOTE: For -Cymraes individuals, multiply the result by 1.210. Chronic Kidney Disease: Estimated GFR < 60 mL/min/1.73m2 Severe Kidney Disease: Estimated GFR < 15 mL/min/1.73m2 FBS 91 60-99 mg/dL CA 9.4 8.4-10.2 mg/dL AST (GOT) 15 5-31 U/L ALT (GPT) 18 0-31 U/L Triglyceride 214 H <150 mg/dL Desirable Triglyceride: less than 150 mg/dL Borderline High Triglyceride 150-199 mg/dL High Triglyceride: 200-499 mg/dL Very High Triglyceride: greater than or equal to 5OO mg/dL Cholesterol 208 H <200 mg/dL Desirable Cholesterol: less than 200 mg/dL Borderline High Cholesterol: 200-239 mg/dL High Cholesterol: greater than 239 mg/dL LDL Calculated 130 H <100 mg/dL Desirable LDL: less than 100 mg/dL Near Optimal/Above Optimal LDL: 110-129 mg/dL Borderline High LDL: 130-159 mg/dL High LDL: 160-189 mg/dL Very High LDL: greater than or equal to 190 mg/dL HDL 36 L >40 mg/dL Desirable HDL: greater than 40 mg/dL Note: This HDL assay may give artificially low results in patients with liver disease. Vit D 25-OH Tot 23.0 L >30 ng/mL Health Based Reference Values* < 20 ng/mL Deficient 20-30 ng/mL Insufficient > 30 ng/mL Sufficient Assessment and Plan Assessment & Plan (1) Essential hypertension: Code(s): I10 - Essential (primary) hypertension Plan: Improving control blood pressure, however still not at goal of less than 130/80. Will start on lisinopril 5 mg per tablet taken once a day in a.m. reinforced importance of eating healthy diet, and getting regular cardio exercise at least 3 times a week. Schedule appointment with nurse navigator in a week to check blood pressure after starting lisinopril (2) Vitamin D deficiency: Code(s): E55.9 - Vitamin D deficiency, unspecified Plan: Will check vitamin-D level again (3) Dyslipidemia: Code(s): E78.5 - Hyperlipidemia, unspecified Plan: Reviewed recent fasting lipid profile with patient with elevated triglycerides and mildly elevated LDL cholesterol. . Stressed importance of adherence to low-cholesterol diet and regular exercise, at least 30 minutes 3 to 4 times a week. Advised patient to make healthy food choices, eat more fruits, vegetables, whole grains, wild caught fish and low-fat dairy. Limit amount of meat and fried or fatty food products, as well as processed foods and fast foods. Repeat fasting lipid panel, liver enzymes, basic metabolic panel and hemoglobin A1c ordered Orders: Orders Hemoglobin A1c 1 Week I10 - Essential (primary) hypertension, E55.9 - Vitamin D deficiency, unspecified, E78.5 - Hyperlipidemia, unspecified Vitamin D 25-OH Total 1 Week I10 - Essential (primary) hypertension, E55.9 - Vitamin D deficiency, unspecified, E78.5 - Hyperlipidemia, unspecified Aspartate Amino Transferase 1 Week I10 - Essential (primary) hypertension, E55.9 - Vitamin D deficiency, unspecified, E78.5 - Hyperlipidemia, unspecified Lipid Panel 1 Week I10 - Essential (primary) hypertension, E55.9 - Vitamin D deficiency, unspecified, E78.5 - Hyperlipidemia, unspecified Basic Metabolic Panel Fasting 1 Week I10 - Essential (primary) hypertension, E55.9 - Vitamin D deficiency, unspecified, E78.5 - Hyperlipidemia, unspecified Alanine Aminotransferase 1 Week I10 - Essential (primary) hypertension, E55.9 - Vitamin D deficiency, unspecified, E78.5 - Hyperlipidemia, unspecified Medications: Refilled lisinopril 5 mg PO DAILY 90 tabs 1RF Coding Level of Care Code Est Pt Level 4 (31840) Complex EM visit Add On G2211 Diagnoses Essential hypertension I10 Vitamin D deficiency E55.9 Dyslipidemia E78.5
== END 2023-12-28 13:57 | disposition home or self-care (01) ==
PROVIDERS: PCP Internal Medicine; Visit Provider Internal Medicine
DX: I10 Essential (primary) hypertension (principal); E55.9 Vitamin D deficiency, unspecified; E78.5 Hyperlipidemia, unspecified
CPT/HCPCS: 99214; G2211

== ENCOUNTER 2024-01-11 07:28 | Outpatient (REF) | payer OTHER, SELFPAY ==
[2024-01-11 11:41] LABS: Estimated Average Glucose 120 mg/dL; Hemoglobin A1c % 5.8 % (<6.0)
[2024-01-11 11:58] LABS: Alanine Aminotransferase 22 U/L (0-31); Anion Gap 11 (12-20); Aspartate Amino Transferase 18 U/L (5-31); Blood Urea Nitrogen 15 mg/dL (9-16); Calcium 9.5 mg/dL (8.4-10.2); Carbon Dioxide 29 mmol/L (22-29); Chloride 107 mmol/L (96-108); Cholesterol 225 mg/dL (<200); Estimated Glomerular Filt Rate > 60; Glucose Fasting 90 mg/dL (60-99); HDL Cholesterol 38 mg/dL (>40); LDL Cholesterol Calculated 147 mg/dL (<100); Potassium 3.8 mmol/L (3.3-5.1); Sodium 143 mmol/L (135-145); Triglycerides 203 mg/dL (<150)
[2024-01-11 11:59] LABS: Vitamin D 25-OH Total 57.4 ng/mL (>30)
== END 2024-01-11 07:29 | disposition home or self-care (01) ==
LOC: HO.HMGCLDS 07:28
PROVIDERS: PCP Internal Medicine; Visit Provider Internal Medicine
DX: I10 Essential (primary) hypertension (principal); E55.9 Vitamin D deficiency, unspecified; E78.5 Hyperlipidemia, unspecified; Z13.1 Encounter for screening for diabetes mellitus
CPT/HCPCS: 36415; 80048; 80061; 82306; 83036; 84450; 84460

== ENCOUNTER 2024-01-12 10:06 | Outpatient (AMB) | payer OTHER, SELFPAY ==
--- NOTE | 2024-01-12 10:12 | MHC.OFFVIS ---
Vital Signs 01/12/24 10:13 Height 5 ft 5 in Weight 218 lb BMI 36.3 BP 118/80 Blood Pressure Location Lt brachial Position Sitting Intake Visit Reasons: [employer] annual exam Allergies No Known Allergies [No Known Allergies*] Allergy (Verified 01/12/24 10:15) HPI Comments Details: Presenting for annual exam. No complaints. No pelvic pressure, vaginal bleeding or pain Last Pap/HPV was negative in 01/07 Last Mammogram was BI-RADS 2 in 07/09 Last Colonoscopy was done in 03/02, the recommendation was to repeat in 10 years Last pelvic ultrasound done in 02/06 showed 2 myoma PFSH Medical History Obesity (BMI 30.0-34.9) Essential hypertension Vitamin D deficiency Epigastric pain Dyslipidemia Bursitis of right shoulder Nephrolithiasis Hyperuricosuria Surgical History H/O lithotripsy Family History Father Asthma Mother Ovarian cancer Social History Housing: Apartment Patient Tobacco Use Status: Never used Tobacco e-Cigarette/Vaping Use: Never Used Second Hand Smoke Exposure: No service: No Current occupational status: employed 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 needs: No Hearing needs: No Vision needs: Yes Female Reproductive History Menstrual Age of Menarche: 15 Total pregnancies: 3 Full term: 2 Ab spontaneous: 1 Date of last pap smear: 01/10/23 History of abnormal pap smear: No History of STI: No Date of Mammogram: 07/15/23 History of abnormal mammogram: No Review of Systems Const All systems reviewed & are unremarkable except as noted in HPI and below Card Reports as per HPI Resp Reports as per HPI GI Reports as per HPI and Reports no additional complaints Reports as per HPI Physical Exam Vital Signs: Last Vital Signs BP 118/80 01/12/24 10:13 BMI result Body Mass Index 36.3 Const General: cooperative, healthy appearing and comfortable Chest Chest palpation & inspection: normal inspection of the chest and normal palpation of entire chest wall Breast/axilla inspection: normal inspection of the breasts and normal inspection of the axillae Breast/axilla palpation: normal palpation of the breasts, normal palpation of the axillae and no axillary lymphadenopathy Resp Effort & Inspection: normal respiratory effort Auscultation: clear to auscultation bilaterally Percussion: percussion normal Cardio Palpation: normal PMI Rate: regular rate Rhythm: regular rhythm Heart sounds: no murmurs and no rubs Peripheral pulses: Peripheral pulses 2+ throughout GI Inspection: Yes normal to inspection Palpation (GI): Soft to palpation, nontender, no guarding, not rigid and No hepatosplenomegaly present Percussion: Yes normal to percussion Auscultation: normal bowel sounds Rectal Exam - Female: deferred General: Yes bladder normal to palpation External Female Exam: No lesion Speculum Exam - Vagina: normal appearance of the vagina, normal palpation, normal vaginal discharge and not erythematous Speculum Exam - Cervix: normal appearance of the cervix and normal palpation Bimanual exam- vagina & uterus: normal bimanual exam, normal palpation, uterine size normal, bladder normal to palpation, consistency normal and normal palpation Bimanual Exam- Adnexa, other: normal adnexae, no masses and no tenderness Assessment & Plan Assessment & Plan (1) Well woman exam: Code(s): Z01.419 - Encounter for gynecological examination (general) (routine) without abnormal findings Category: Medical Plan: Co testing not indicated this year. Counseled the patient about the recommended dietary allowance of 1200 mg of Calcium & 600 IU of vitamin D. Instructions given the patient to schedule her screening Mammogram in 07/10. The patient was instructed to perform monthly self-breast exams and schedule annual exam in a year. All questions answered and the patient verbalized understanding. (2) Uterine myoma: Code(s): D25.9 - Leiomyoma of uterus, unspecified Category: Medical Plan: Pelvic Ultrasound ordered to compare the size of myoma relative to previous ultrasound done in 02/06. Instructions given the patient to schedule pelvic ultrasound and a follow-up appointment. Orders: Orders US pelvic and transvaginal Today D25.9 - Leiomyoma of uterus, unspecified Coding Level of Care Code Est Pt Prev Care 40-64y(05274) Diagnoses Well woman exam Z01.419 Uterine myoma D25.9
[2024-01-12 10:13] VITALS: BP 118/80; BMI 36.3
== END 2024-01-12 10:43 | disposition home or self-care (01) ==
LOC: HO.HWS 10:06
PROVIDERS: PCP Internal Medicine; Visit Provider Obstetrics & Gynecology
DX: Z01.419 Encounter for gynecological examination (general) (routine) without abnormal findings (principal); D25.9 Leiomyoma of uterus, unspecified
CPT/HCPCS: 99396

== ENCOUNTER → 2024-01-12 10:06 | Outpatient (BNVA) | payer OTHER, SELFPAY | PROVIDERS: PCP Internal Medicine; Visit Provider Obstetrics & Gynecology ==

== ENCOUNTER 2024-01-30 13:12 | Outpatient (REF) | payer OTHER, SELFPAY ==
--- NOTE | ~2024-01-30 | US_ITS ---
EXAMINATION: US PELVIS COMPLETE CLINICAL INFORMATION: Leiomyoma; postmenopausal patient. COMPARISON: Pelvic ultrasound dated 01/27/2023. TECHNIQUE: Transabdominal imaging was performed. FINDINGS: The uterus is of normal size and echogenicity, measuring 7.2 x 3.8 x 5.0 cm. The uterus is anteverted. A regular, cystic endometrium is identified measuring 1.0 cm. The largest endometriosis measures 6 mm. FIBROIDS: There are 2 fibroids seen. 1. Location: Upper body and fundus, myometrial. Size: 2.3 x 2.0 x 2.0 cm. Prior: 2.1 x 2.0 x 2.1 cm. Fibroid characteristics: Heterogeneous echotexture. 2. Location: Posterior leftward upper body, myometrial. Size: 0.8 x 0.7 x 0.7 cm. Prior: 0.8 x 0.6 x 0.8 cm. Fibroid characteristics: Heterogeneously hypoechoic. Both ovaries are of normal size and echogenicity. The ovaries show normal doppler flow. The right ovary measures 3.1 x 1.0 x 2.1 cm for a volume of 3.4 mL. The left ovary measures 2.0 x 1.2 x 1.5 cm for a volume of 1.9 mL. There is no pelvic free fluid. No adnexal mass is seen. US/US pelvic and transvaginal IMPRESSION: 1. There is uterine fibroid disease. 2. There is postmenopausal endometrial thickening to 1.0 cm. Gynecology evaluation and management are recommended, with consideration for tissue sampling, if clinically indicated.
== END 2024-01-30 13:13 | disposition home or self-care (01) ==
LOC: HO.HMGCX 13:12
PROVIDERS: PCP Internal Medicine; Visit Provider Obstetrics & Gynecology
DX: D25.9 Leiomyoma of uterus, unspecified (principal)
CPT/HCPCS: 76830; 76856

== ENCOUNTER 2024-02-20 15:00 | Outpatient (AMB) | payer OTHER, SELFPAY ==
[2024-02-20 15:22] VITALS: BP 126/84; BMI 35.9
--- NOTE | 2024-02-20 15:22 | MHC.OFFVIS ---
Vital Signs 02/20/24 15:22 Height 5 ft 5 in Weight 216 lb 0.848 oz BMI 35.9 BP 126/84 Intake Visit Reasons: EMB Pay Clerk Required: No Information Interpreted: non-clinical & clinical Rubber Compounder Supervisor: Rubber Compounder Supervisor Present Accompanied by: Self / Same As Patient Allergies No Known Allergies [No Known Allergies*] Allergy (Verified 02/20/24 15:25) Is last menstrual period known: Yes Last menstrual period: 05/15/20 Post menopausal: Yes Patient : No Do you need a note to return to daycare/school/sports/work: Yes (for surgery on tuesday) HPI Comments Details: Presenting for ultrasound follow-up regarding myomas, the patient is not complaining of any vaginal bleeding pelvic pressure or pain. Pelvic ultrasound showed the following: The uterus is of normal size and echogenicity, measuring 7.2 x 3.8 x 5.0 cm. The uterus is anteverted. A regular, cystic endometrium is identified measuring 1.0 cm. The largest endometriosis measures 6 mm. FIBROIDS: There are 2 fibroids seen. 1. Location: Upper body and fundus, myometrial. Size: 2.3 x 2.0 x 2.0 cm. Prior: 2.1 x 2.0 x 2.1 cm. Fibroid characteristics: Heterogeneous echotexture. 2. Location: Posterior leftward upper body, myometrial. Size: 0.8 x 0.7 x 0.7 cm. Prior: 0.8 x 0.6 x 0.8 cm. Fibroid characteristics: Heterogeneously hypoechoic. Both ovaries are of normal size and echogenicity. The ovaries show normal doppler flow. The right ovary measures 3.1 x 1.0 x 2.1 cm for a volume of 3.4 mL. The left ovary measures 2.0 x 1.2 x 1.5 cm for a volume of 1.9 mL. There is no pelvic free fluid. No adnexal mass is seen ADDENDUM: IMPRESSION: An irregular, cystic endometrium is identified measuring 1.0 cm. The largest endometrial cyst measures 6 mm. 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 needs: No Hearing needs: No Vision needs: Yes Female Reproductive History Menstrual Age of Menarche: 15 Date of last menstrual period: 05/15/20 Total pregnancies: 2 Full term: 2 Review of Systems Card Reports as per HPI and Reports no additional complaints Resp Reports as per HPI and Reports no additional complaints GI Reports as per HPI and Reports no additional complaints Reports as per HPI Physical Exam Vital Signs: Last Vital Signs BP 126/84 02/20/24 15:22 BMI result Body Mass Index 35.9 Const General: cooperative, healthy appearing and comfortable Assessment & Plan Assessment & Plan (1) Uterine myoma: Code(s): D25.9 - Leiomyoma of uterus, unspecified Category: Medical Plan: Discussed with the patient the findings on pelvic ultrasound & the risk of myosarcoma; discussed with the patient the options of treatment including expectant management versus hysterectomy; the pros and cons, risks benefits of each approach were discussed with the patient including the fact that in cases of myosarcoma, surgical treatment can lead to early diagnosis and positively affects the prognosis; after further discussion, the patient decided to proceed with expectant management. Will repeat pelvic ultrasound periodically. Instructions given to patient to call in case any of the following occurs: pressure symptoms, abnormal uterine bleeding, pelvic pain; and to schedule a future office follow-up appointment for reassessment and to order a repeat ultrasound . All questions answered, the patient verbalized understanding and agreed with the plan . (2) Abnormal ultrasound of endometrium: Code(s): R93.5 - Abnormal findings on diagnostic imaging of other abdominal regions, including retroperitoneum Category: Medical Plan: Discussed with the patient the pelvic ultrasound findings, the endometrial stripe thickenss measured by ultrasound was more than 4mm and cystic looking. The negative predictive value, positive predictive value, Sensitivity, specificity of using ultrasound measurement of endometrial stripe to detecting endometrial pathology including hyperplasia , polyp or cancer were discussed with the patient. Recommended to the patient that the next step is an endometrial sampling via hysteroscopy D&C possible polypectomy versus endometrial biopsy to r/o endometrial pathology including hyperplasia or cancer. All the pros and cons risks and benefits of each approach were discussed with the patient, endometrial biopsy being less invasive, office procedure with less sensitivity and inability diagnose a polyp and removal versus hysteroscopy done under anesthesia more invasive more sensitive to endometrial cancer and possibility of diagnosing and endometrial polyp with the possibility of polypectomy. All questions were answered pt verbalized understanding and decided to proceed with office EMB. Instructions given the patient to schedule office endometrial biopsy as soon as possible. Coding Level of Care Code Est Pt Level 3 (73532) Diagnoses Uterine myoma D25.9 Abnormal ultrasound of endometrium R93.5
== END 2024-02-20 18:14 | disposition home or self-care (01) ==
LOC: HO.HWS 15:00
PROVIDERS: PCP Internal Medicine; Visit Provider Obstetrics & Gynecology
DX: D25.9 Leiomyoma of uterus, unspecified (principal); R93.5 Abnormal findings on diagnostic imaging of other abdominal regions, including retroperitoneum
CPT/HCPCS: 99213

== ENCOUNTER → 2024-02-20 15:00 | Outpatient (BNVA) | payer OTHER, SELFPAY | PROVIDERS: PCP Internal Medicine; Visit Provider Obstetrics & Gynecology ==

== ENCOUNTER 2024-02-21 14:26 | Outpatient (REF) | payer OTHER, SELFPAY | END 2024-02-21 14:27 | disposition home or self-care (01) | LOC: HO.LNP 14:26 | PROVIDERS: PCP Internal Medicine; Visit Provider Obstetrics & Gynecology | DX: R93.5 Abnormal findings on diagnostic imaging of other abdominal regions, including retroperitoneum (principal) | CPT/HCPCS: 58100; 88305 ==

== ENCOUNTER 2024-02-21 14:26 | Outpatient (AMB) | payer OTHER, SELFPAY ==
--- NOTE | 2024-02-21 14:31 | A.OFFVIS_ITS ---
Vital Signs 02/21/24 14:36 Height 5 ft 5 in Weight 216 lb 0.848 oz BMI 35.9 Intake Visit Reasons: EMB Housekeeper And Laundry Assistant Required: No Information Interpreted: non-clinical & clinical Flour Blender Helper: Flour Blender Helper Present (Gracie GIBSON) Accompanied by: Self / Same As Patient Allergies No Known Allergies [No Known Allergies*] Allergy (Verified 02/21/24 14:37) Post menopausal: Yes HPI Comments Details: Presenting for EMB [facility] Medical History Obesity (BMI 30.0-34.9) Essential hypertension Vitamin D deficiency Epigastric pain Dyslipidemia Bursitis of right shoulder Nephrolithiasis Hyperuricosuria Surgical History H/O lithotripsy Family History Father Asthma Mother Ovarian cancer Social History Housing: Apartment Patient Tobacco Use Status: Never used Tobacco e-Cigarette/Vaping Use: Never Used Second Hand Smoke Exposure: No service: No 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 hysteroscopy D&C) & the risks were discussed with the patient including but not limited: pain, uterine perforation, bleeding, infection, possible injury to bladder, bowel, ureter, possible need for blood transfusion with all its possible risks. The patient verbalized understanding all questions answered and signed consent. The patient was placed into the dorsal lithotomy position; a speculum was inserted in the vagina. Using aseptic technique for the procedure, the cervix was cleansed with Betadine. The anterior lip of the cervix was grasped with a single tooth tenaculum. The uterus was sounded to 7 cm with a 4 mm Pipelle was used. Minimal to moderate Tissues samples were obtained and placed in formalin, in a patient labeled container and sent to the pathology department. At the end of the procedure, there was minimal bleeding noted The patient tolerated the procedure well and was discharged in good condition with the following instructions: Nothing in the vagina until the bleeding stops. No sex until the bleeding stops, to call if any of the following occurs: fever (>100.4), flu-like symptoms, abdominal pain, heavy bleeding, four smelling vaginal discharge. The patient was instructed to schedule a Follow up appointment in 2 weeks to discuss pathology results of the biopsy and treatment options. This note was generated with a voice recognition program. Some errors may have been overlooked during the review of this note. Sometimes these errors may affect the content or meaning of a given sentence. [id number] Biopsy Assessment & Plan Assessment & Plan (1) Abnormal ultrasound of endometrium: Code(s): R93.5 - Abnormal findings on diagnostic imaging of other abdominal regions, including retroperitoneum Category: Medical Plan: EMB done, see procedure note Orders: Orders AMB Endometrial Biopsy Today R93.5 - Abnormal findings on diagnostic imaging of other abdominal regions, including retroperitoneum Coding Level of Care Code Procedure Only Diagnoses Abnormal ultrasound of endometrium R93.5 CPT Codes Endometrial Biopsy - CPT: 26997-[id number] Biopsy ([id number])
[2024-02-21 14:36] VITALS: BMI 35.9
== END 2024-02-21 16:26 | disposition home or self-care (01) ==
PROVIDERS: PCP Internal Medicine; Visit Provider Obstetrics & Gynecology
DX: R93.5 Abnormal findings on diagnostic imaging of other abdominal regions, including retroperitoneum (principal)
CPT/HCPCS: 58100

== ENCOUNTER → 2024-03-01 11:18 | Outpatient (BNVA) | payer OTHER, SELFPAY | PROVIDERS: PCP Internal Medicine; Visit Provider Obstetrics & Gynecology ==

== ENCOUNTER 2024-03-15 10:26 | Outpatient (AMB) | payer OTHER, SELFPAY ==
--- NOTE | 2024-03-01 11:19 | MHC.OFFVIS ---
Intake Visit Reasons: emb results Allergies No Known Allergies [No Known Allergies*] Allergy (Verified 02/21/24 14:37) HPI Comments Details: The patient scheduled a telehealth visit after endometrial biopsy. The patient has no complaints, no vaginal bleeding, no feverishness chills or abdominal pain. The endometrial biopsy pathology report showed the following: Scant strips of benign atrophic endometrium, benign endocervical glandular mucosa, and benign squamous epithelium. 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 needs: No Hearing needs: No Vision needs: Yes Female Reproductive History Menstrual Age of Menarche: 15 Review of Systems Const All systems reviewed & are unremarkable except as noted in HPI and below Reports as per HPI and Reports no additional complaints GI Reports no additional complaints Reports no additional complaints Telehealth Telehealth Telehealth Platform: Telephone Location of provider rendering services: practice address Location of patient: address on file Patient Identification confirmed using: Name, : Yes Telehealth method: voice only Patient verbally consented to treatment: Yes Patient verbally consented to billing insurance company: Yes Patient informed of any privacy concerns related to visit: Yes Assessment & Plan Assessment & Plan (1) Abnormal ultrasound of endometrium: Comment: 1 cm thickened cystic endometrium by ultrasound Code(s): R93.5 - Abnormal findings on diagnostic imaging of other abdominal regions, including retroperitoneum Category: Medical Plan: Discussed with the patient the results of the endometrial biopsy , although benign does not explain the abnormal endometrium on pelvic ultrasound. Discussed with the patient the sensitivity, specificity, positive and negative predictive value, of endometrial biopsy in detecting endometrial pathology including but not limited to endometrial hyperplasia, cancer and other pathology; recommended with the patient the next step in the management is to proceed with a diagnostic hysteroscopy/D&C for further endometrial sampling evaluation to rule out endometrial pathology. All questions answered and the patient verbalized understanding and agreed with the plan. I spent a total of 20 minutes reviewing the chart, talking to the patient via video and documenting in the medical record. Coding Level of Care Code Tele Est Pt Level 1 (97448) Diagnoses Abnormal ultrasound of endometrium R93.5
== END 2024-03-15 16:35 | disposition home or self-care (01) ==
PROVIDERS: PCP Internal Medicine; Visit Provider Obstetrics & Gynecology
DX: R93.5 Abnormal findings on diagnostic imaging of other abdominal regions, including retroperitoneum (principal)
CPT/HCPCS: 99211

== ENCOUNTER → 2024-03-15 10:26 | Outpatient (BNVA) | payer OTHER, SELFPAY | PROVIDERS: PCP Internal Medicine; Visit Provider Obstetrics & Gynecology ==

== ENCOUNTER 2024-04-09 15:08 | Outpatient (AMB) | payer OTHER, SELFPAY ==
[2024-04-09 15:10] VITALS: BP 122/82; BMI 35.9
--- NOTE | 2024-04-09 15:10 | MHC.OFFVIS ---
Vital Signs 04/09/24 15:10 Height 5 ft 5 in Weight 216 lb 0.848 oz BMI 35.9 BP 122/82 Intake Visit Reasons: pre op Target Network Analyst: Target Network Analyst Present Allergies No Known Allergies [No Known Allergies*] Allergy (Verified 02/21/24 14:37) Is last menstrual period known: Yes Last menstrual period: 05/15/20 Post menopausal: No Patient : No Do you need a note to return to daycare/school/sports/work: Yes (for surgery on tuesday) HPI Comments Details: Presenting for follow-up Pelvic ultrasound showed the following: IMPRESSION: 1. There is uterine fibroid disease. 2. There is postmenopausal endometrial thickening to 1.0 cm. Gynecology evaluation and management are recommended, with consideration for tissue sampling, if clinically indicated Endometrial biopsy pathology showed the following: Scant strips of benign atrophic endometrium, benign endocervical glandular mucosa, and benign squamous epithelium. 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 needs: No Hearing needs: No Vision needs: Yes Female Reproductive History Menstrual Age of Menarche: 15 Date of last menstrual period: 05/15/20 Total pregnancies: 2 Full term: 2 Review of Systems Card Reports as per HPI and Reports no additional complaints Resp Reports as per HPI and Reports no additional complaints GI Reports as per HPI and Reports no additional complaints Reports as per HPI Physical Exam Vital Signs: Last Vital Signs BP 122/82 04/09/24 15:10 BMI result Body Mass Index 35.9 Const General: cooperative, healthy appearing and comfortable Resp Effort & Inspection: normal respiratory effort Auscultation: clear to auscultation bilaterally Percussion: percussion normal Cardio Palpation: normal PMI Rate: regular rate Rhythm: regular rhythm Heart sounds: no murmurs and no rubs Peripheral pulses: Peripheral pulses 2+ throughout GI Inspection: Yes normal to inspection Palpation (GI): Soft to palpation, nontender, no guarding, not rigid and No hepatosplenomegaly present Percussion: Yes normal to percussion Auscultation: normal bowel sounds Rectal Exam - Female: deferred Assessment & Plan Assessment & Plan (1) Abnormal ultrasound of endometrium: Comment: 1 cm thickened cystic endometrium by ultrasound Code(s): R93.5 - Abnormal findings on diagnostic imaging of other abdominal regions, including retroperitoneum Category: Medical Plan: Discussed with the patient the results of the endometrial pathology: Scant strips of benign atrophic endometrium, benign endocervical glandular mucosa, and benign squamous epithelium. Comment: The findings do not explain abnormal imaging , recommended hysteroscopy D&C possible polypectomy/myomectomy Discussed with the patient the procedure , all benefits and risks including but not limited to inability to complete the procedure , insufficient endometrial tissue for a complete evaluation of the endometrial cavity , bleeding, infection, possible need for blood transfusion with all its risk ( HIV,syphilis, Hepatitis, anaphylaxis shock, others..), injury to bladder, rectum, possible need for laparoscopy/laparotomy or hysterectomy. The patient verbalized understanding and signed the consent. Instructions given the patient to stay NPO after midnight the day prior to the procedure and to take only the specific medication (s) discussed the morning of the surgical procedure and to schedule a 2 week postoperative appointment Coding Level of Care Code Est Pt Level 3 (70920) Diagnoses Abnormal ultrasound of endometrium R93.5
== END 2024-04-09 15:38 | disposition home or self-care (01) ==
LOC: HO.HWS 15:08
PROVIDERS: PCP Internal Medicine; Visit Provider Obstetrics & Gynecology
DX: R93.5 Abnormal findings on diagnostic imaging of other abdominal regions, including retroperitoneum (principal)
CPT/HCPCS: 99213

== ENCOUNTER → 2024-04-09 15:08 | Outpatient (BNVA) | payer OTHER, SELFPAY | PROVIDERS: PCP Internal Medicine; Visit Provider Obstetrics & Gynecology ==

== ENCOUNTER 2024-04-27 10:36 | Day surgery (SDC) | payer OTHER, SELFPAY ==
[2024-04-25 10:02] VITALS: BMI 35.9
--- NOTE | 2024-04-25 13:29 | HO.ANESPROP2 ---
Documented by User: Sara Banda NP 04/25/24 13:29 HPI - Anesthesia Eval Consult details Narrative: 63yo F for D&C Hysteroscopy,possible myomectomy,possible polypectomy, PMFSH Active Problems Active Problems: All Active Problems Abnormal ultrasound of endometrium (Acute) Cerumen impaction (Acute) Dizziness (Acute) Obesity (BMI 30.0-34.9) (Acute) Essential hypertension (Acute) Family history of ovarian cancer (Acute) Uterine myoma (Acute) Nephrolithiasis (Acute) Vitamin D deficiency (Acute) Dyslipidemia (Acute) Past Medical History Medical History Obesity (BMI 30.0-34.9) Essential hypertension Vitamin D deficiency Epigastric pain Dyslipidemia Bursitis of right shoulder Nephrolithiasis Hyperuricosuria Family History Family History Father Asthma Mother Ovarian cancer Surgical History Surgical History H/O lithotripsy Social History Social History Housing: Apartment Patient Tobacco Use Status: Never used Tobacco e-Cigarette/Vaping Use: Never Used Second Hand Smoke Exposure: No Have you been hit, kicked, punched, or otherwise hurt by someone within the past year? 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 Hearing needs: No Vision needs: Yes Meds Allergies Allergy/AdvReac Type Severity Reaction Status Date / Time No Known Allergies Allergy Verified 02/21/24 14:37 [No Known Allergies*] Exam Height,Weight and Vital Signs: Height 5 ft 5 in Weight 97.976 kg Assessment and Plan Assessment Anesthesia Assessment: Chart Reviewed Documented by User: Lon Xiao MD 04/27/24 11:59 PMFSH Past Medical History Medical History Obesity (BMI 30.0-34.9) Essential hypertension Vitamin D deficiency Epigastric pain Dyslipidemia Bursitis of right shoulder Nephrolithiasis Hyperuricosuria Family History Family History Father Asthma Mother Ovarian cancer Family history of problems with anesthesia: No Surgical History Surgical History H/O lithotripsy History of Problems with Anesthesia: No Social History Social History Housing: Apartment Patient Tobacco Use Status: Never used Tobacco e-Cigarette/Vaping Use: Never Used Second Hand Smoke Exposure: No Have you been hit, kicked, punched, or otherwise hurt by someone within the past year? 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 Hearing needs: No Vision needs: Yes Meds Allergies Allergy/AdvReac Type Severity Reaction Status Date / Time No Known Allergies Allergy Verified 02/21/24 14:37 [No Known Allergies*] Exam Airway Mallampati Class: III TM Dist: <=3cm Neck ROM: Full Loose/Missing/Broken Teeth: No Heart: ok Lungs: ok Assessment and Plan Assessment Anesthesia Assessment: Anesthesia Plan Discussed Final Anesthetic Review Family History of Problems with Anesthesia: No History of Problems with Anesthesia: No NPO: Yes ASA Class: III Final Preanesthetic Review: No Changes in Pt Med Stat, Meds/Allgs Chart Reviewed, Consent Obtained/Reviewed and Anes Risks/Benef Reviewed Patient Risk: Intermediate Procedure Risk: Low Anesthetic Plan Anesthetic Plan: GA and Agree w/ Assess. and Plan Disposition: Standard PACU
[2024-04-27 10:40] VITALS: BP 180/76; PULSE 71; RESP 20; TEMP 36.9; O2SAT 98; BMI 36.4
--- NOTE | 2024-04-27 10:45 | MHC.SHP ---
Pre-Procedural Eval Section A - 24 Hr Update-Section A only Date of Service: 04/27/24 The patient is an INPATIENT: No Changes since office visit: No Cold of Flu in the past 2 weeks, No New Medical Problems, No Changes in Medication and No Patient answered all questions The patient has been examined within 24 hours of the surgical procedure. The History & Physical has been completed within 30 days and I have reviewed it.: Yes Section B - Complete if H&P > 30 days Chief Complaint: Abnormal findings on diagnostic imaging Allergies: Allergies Allergy/AdvReac Type Severity Reaction Status Date / Time No Known Allergies Allergy Verified 02/21/24 14:37 [No Known Allergies*] Plan Diagnosis/Plan: Unchanged I have reviewed the history and physical and performed a pertinent physical examination on my patient. No changes have occurred unless specified. Time Spent With Patient Time: Total time managing care of this patient today ____ minutes.
[2024-04-27] MEDS: Lactated Ringers 1,000 ML 100 ML IVCONT (11:07)
--- NOTE | 2024-04-27 12:27 | PM.OP ---
Brief Operative Note Date of Service: 04/27/24 Pre-op diagnosis: Thickened abnormal endometrium by ultrasound Post-op diagnosis: same (Endometrial polyp) Procedure: Hysteroscopy D&C, Polypectomy Surgeon: Frank Couch MD Anesthesia: GLMA Was an Public Relations Specialist used for this Procedure?: No Estimated blood loss (mL): 0 Pathology: other (Endometrial Scrapping. Polyp) Condition: stable Disposition: PACU
--- NOTE | 2024-04-27 12:28 | W.PM.OPN ---
Operative Note Operative Note Date of Service: 04/27/24 Narrative: Preop Diagnosis: Thickened abnormal endometrium by US Operation: Diagnostic Hysteroscopy, Dilataion & Curettage and polypectomy Post Op Diagnosis: Endometrial Polyp QBL: Minimal Anesthesia: GLMA Surgeon: Frank Couch MD Nuclear Fuels Research Engineer: None Complication: None Pathology: Endometrial Scrapings, Endometrial polyp Procedure: The patient was put in the dorsal lithotomy position, scrubbed, and draped in the usual manner. A sterile speculum was inserted in the patient's vagina. The anterior lip of the cervix was grasped with a single tooth tenaculum. The cervix was dilated up to 5 mm, then the scope was inserted in the patient's uterus. Inspection revealed endometrial polyp. The Myosure Reach device was used; it was introduced through the operative channel and polypectomy done with no complications. The scope was then taken out from the uterine cavity, sharp curettings was carried on with minimal to moderate amount of tissues retrieved. At the end of the procedure, all instruments were taken out of the patient uterine and vaginal cavity. The single tooth tenaculum was removed and homeostasis was assured using pressure,. The patient tolerated the procedure well and was transferred to the PACU in a stable condition.
[2024-04-27 12:33] VITALS: BP 129/72; PULSE 77; RESP 12; TEMP 36.1; O2SAT 97
[2024-04-27 12:38] VITALS: BP 140/86; PULSE 75; RESP 14; O2SAT 98
[2024-04-27 12:43] VITALS: BP 126/72; PULSE 70; RESP 16; O2SAT 98
[2024-04-27 12:48] VITALS: BP 124/71; PULSE 64; RESP 14; O2SAT 100
[2024-04-27] MEDS: Acetaminophen 325 MG TABLET 650 MG PO (12:55)
[2024-04-27 13:03] VITALS: BP 128/66; PULSE 58; RESP 18; TEMP 36.4; O2SAT 99
== END 2024-04-27 13:57 | disposition home or self-care (01) ==
PROVIDERS: PCP Internal Medicine; Visit Provider Obstetrics & Gynecology
PROC: 0UDB8ZZ Extraction of Endometrium, Via Natural or Artificial Opening Endoscopic (ICD-10-PCS; CPT 58558; principal; 2024-04-27 12:50)
DX: N84.0 Polyp of corpus uteri (principal); D25.9 Leiomyoma of uterus, unspecified; R82.993 Hyperuricosuria; I10 Essential (primary) hypertension; E78.5 Hyperlipidemia, unspecified; E55.9 Vitamin D deficiency, unspecified; E66.9 Obesity, unspecified; Z68.35 Body mass index [BMI] 35.0-35.9, adult; Z87.442 Personal history of urinary calculi
CPT/HCPCS: 58558; 88305; J1885; J2003; J2405; J2704; J3010

== ENCOUNTER → 2024-04-27 10:36 | Outpatient (BNV) | payer OTHER, SELFPAY | PROVIDERS: PCP Internal Medicine; Visit Provider Obstetrics & Gynecology | DX: N84.0 Polyp of corpus uteri (principal); R93.5 Abnormal findings on diagnostic imaging of other abdominal regions, including retroperitoneum | CPT/HCPCS: 58558 ==

== ENCOUNTER 2024-05-16 10:30 | Outpatient (AMB) | payer OTHER, SELFPAY ==
[2024-05-16 10:42] VITALS: BP 116/74; BMI 36.3
--- NOTE | 2024-05-16 10:42 | MHC.OFFVIS ---
Vital Signs 05/16/24 10:42 Height 5 ft 5 in Weight 218 lb BMI 36.3 BP 116/74 Blood Pressure Location Lt brachial Position Sitting Intake Visit Reasons: post op Allergies No Known Allergies [No Known Allergies*] Allergy (Verified 05/16/24 10:51) HPI Comments Details: The patient is presenting post hysteroscopy D&C no complaints minimal vaginal bleeding no feverishness chills or abdominal pain. Intraoperative finding showed endometrial polyp The pathology showed the following: A. Endometrial polyp, resection: Fragments of benign polyp with scattered hyperplastic glands; no atypia or carcinoma. B. Endometrium, curettage: Scant benign inactive endometrium and benign endocervical and squamous epithelium; no atypia or carcinoma. 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 needs: No Hearing needs: No Vision needs: Yes Female Reproductive History Menstrual Age of Menarche: 15 Review of Systems Const All systems reviewed & are unremarkable except as noted in HPI and below Reports as per HPI and Reports no additional complaints GI Reports no additional complaints Reports no additional complaints Physical Exam Vital Signs: Last Vital Signs BP 116/74 05/16/24 10:42 BMI result Body Mass Index 36.3 Assessment & Plan Assessment & Plan (1) Abnormal ultrasound of endometrium: Comment: 1 cm thickened cystic endometrium by ultrasound Code(s): R93.5 - Abnormal findings on diagnostic imaging of other abdominal regions, including retroperitoneum Category: Medical Plan: Discussed with the patient intraoperative findings showing endometrial polyp status post hysteroscopy polypectomy, and discussed with the patient the pathology results of the polyp and D and C. In addition, the Sensitivity, specificity, false-positive and negative rate were discussed with the patient. Instructions given the patient to call in case of vaginal bleeding or any other concerns. All questions answered, the patient verbalized understanding Coding Level of Care Code Est Pt Level 3 (73507) Diagnoses Abnormal ultrasound of endometrium R93.5
== END 2024-05-16 11:01 | disposition home or self-care (01) ==
LOC: HO.HWS 10:30
PROVIDERS: PCP Internal Medicine; Visit Provider Obstetrics & Gynecology
DX: R93.5 Abnormal findings on diagnostic imaging of other abdominal regions, including retroperitoneum (principal)
CPT/HCPCS: 99212

== ENCOUNTER → 2024-05-16 10:30 | Outpatient (BNVA) | payer OTHER, SELFPAY | PROVIDERS: PCP Internal Medicine; Visit Provider Obstetrics & Gynecology ==

== ENCOUNTER 2024-07-27 08:51 | Outpatient (REF) | payer OTHER, SELFPAY | END 2024-07-27 08:52 | disposition home or self-care (01) | LOC: HO.MAMMO 08:51 | PROVIDERS: Visit Provider Internal Medicine | DX: Z12.31 Encounter for screening mammogram for malignant neoplasm of breast (principal) | CPT/HCPCS: 77063; 77067 ==

== ENCOUNTER → 2024-07-27 09:00 | Outpatient (BNV) | payer OTHER, SELFPAY | PROVIDERS: Visit Provider Internal Medicine | DX: Z12.31 Encounter for screening mammogram for malignant neoplasm of breast (principal) | CPT/HCPCS: 77063; 77067 ==

== ENCOUNTER 2024-09-07 14:56 | Emergency (ER) | payer OTHER, SELFPAY ==
--- NOTE | ~2024-09-07 | XR_ITS ---
EXAMINATION: XR HIP, RIGHT CLINICAL INFORMATION: trauma COMPARISON: None available. TECHNIQUE: AP pelvis, and 2 views of the right hip. FINDINGS: No fracture, dislocation, or suspicious bone lesion. Normal alignment of the hip joints. Mild osteoarthritis involving both hip joints, with superolateral acetabular spurring. Femoral heads are normal in contour without evidence of AVN. There is insertional gluteal enthesopathy involving the lateral iliac wings. The SI joints are intact and grossly normal. Mild degenerative changes lower lumbar spine. No discrete soft tissue abnormalities. XR/XR hip RT w PEL1V IMPRESSION: No acute findings pelvis or right hip. Mild degenerative arthritis. Electronically signed by: Bob Magaña MD 09/07/2024 04:58 PM [facility]
--- NOTE | ~2024-09-07 | XR_ITS ---
EXAMINATION: XR KNEE, RIGHT CLINICAL INFORMATION: trauma COMPARISON: None available. TECHNIQUE: Two views of the right knee. FINDINGS: No fracture, dislocation, or suspicious bone lesion. Normal bone mineralization. Normal alignment. Mild to moderate medial compartment and patellofemoral compartment joint space narrowing. Associated mild productive marginal osteophytic spurs. Mild spurring of the tibial spines. Lateral compartment is normal. No significant joint effusion. Soft tissues appear normal. XR/XR knee RT 2V IMPRESSION: 1. No acute findings right knee. No joint effusion. 2. Mild to moderate medial and patellofemoral compartment osteoarthrosis. Electronically signed by: Bob Magaña MD 09/07/2024 04:56 PM [facility]
[2024-09-07 15:10] VITALS: BP 158/85; BP 164/105; PULSE 78; PULSE 87; RESP 18; TEMP 36.6; O2SAT 99; BMI 35.8
--- NOTE | 2024-09-07 15:15 | ED_ITS ---
HPI - General Adult General Chief complaint: Fall Stated complaint: fall per ems Time Seen by Provider: 09/07/24 20:04 History of Present Illness ED Provider: Yaquelin Yadav PA-C HPI narrative: 63-year-old female who presents after fall. Patient states she was shopping, she slipped on some food, falling on her bottom, twisting the right knee. Patient complains of pelvic, hip and knee pain on the right. Related Data Previous Rx's ?Medication ?Instructions ?Recorded lisinopril 5 mg tablet 5 mg PO DAILY #90 tabs 08/27/24 lidocaine 5 % topical patch 2 patch topical DAILY PRN pain #15 09/07/24 ea methylprednisolone 4 mg tablets in 4 mg PO QAM #1 ea 09/07/24 a dose pack (Medrol (Rogelio)) Allergies Allergy/AdvReac Type Severity Reaction Status Date / Time No Known Allergies Allergy Verified 09/07/24 15:14 [No Known Allergies*] PMFSH Past Medical History Medical History Obesity (BMI 30.0-34.9) Essential hypertension Vitamin D deficiency Epigastric pain Dyslipidemia Bursitis of right shoulder Nephrolithiasis Hyperuricosuria Surgical History H/O lithotripsy Family History Family History Father Asthma Mother Ovarian cancer Social History Social History Housing: Apartment Patient Tobacco Use Status: Never used Tobacco e-Cigarette/Vaping Use: Never Used Second Hand Smoke Exposure: No Advance Directives: No Advance Directives Information Provided: No service: No Current occupational status: employed 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 Patient is a 63-year-old female who presents after fall. Patient states she was shopping, she slipped on some food, falling on her bottom, twisting the right knee. Patient complains of pelvic, hip and knee pain on the right. We will obtain x- rays. The patient is stable and can return to the waiting room pending her full medical assessment. Medical Decision Making Medical Decision Making MDM Narrative: 63-year-old female who presents after fall. Patient states she was shopping, she slipped on some food, falling on her bottom, twisting the right knee. Patient complains of pelvic, hip and knee pain on the right. Problem: Age History: Per patient I have considered the following differential diagnoses: Fracture, dislocation, contusion, sprain Plan: X-ray of the knee hip and pelvis were ordered from triage, no acute injury sustained,... We will send with home care instructions. I have independently reviewed the following tests: X-ray right hip pelvis: XR/XR hip RT w PEL1V IMPRESSION: No acute findings pelvis or right hip. Mild degenerative arthritis. Electronically signed by: Bob Magaña MD 09/07/2024 04:58 PM EST RP X-ray right knee: XR/XR knee RT 2V IMPRESSION: 1. No acute findings right knee. No joint effusion. 2. Mild to moderate medial and patellofemoral compartment osteoarthrosis. Electronically signed by: Bob Magaña MD 09/07/2024 04:56 PM EST RP Discharge Plan Discharge Clinical Impression: Contusion of leg, right, Right knee sprain Patient Disposition: Home, Self-Care Instructions: Knee Sprain (ED), Contusion in Adults (ED) Additional Instructions: The x-rays of the hip pelvis and knee were all negative for fracture. You sustained a sprain and contusion. See home care instructions. Use the Medrol Dosepak as an anti-inflammatory, take this medication in the morning. You can also use [id number] Tylenol 1000 mg taken every 8 hours, for discomfort. Ice the affected areas multiple times a day. Use the lidocaine patch as needed for further discomfort. Follow up with your primary care provider as needed. Prescriptions: New methylprednisolone [Medrol (Rogelio)] 4 mg tablets,dose pack 4 mg PO QAM Qty: 1 0RF lidocaine 5 % adhesive patch,medicated 2 patch topical DAILY PRN (Reason: pain) Qty: 15 0RF Rx Instructions: leave on most painful area for up to 12 hrs No Action lisinopril 5 mg tablet 5 mg PO DAILY Qty: 90 1RF Print Language: Bengali
--- OUTSIDE RECORDS SUMMARY | 2024-09-07 20:16 | XMS_ITS | Encounter Summary ---
Author Organization [employer] Address [address] [facility] [address] [place] [address] Care Team Providers Care Franchise Field Consultant Name Role Phone Unavailable Primary Care Provider Unavailabl e Encounter Details Date Type Department Care Team (Latest Contact Info) Description 02/19/[address] [facility] CONVERSIONS Dental, Provider, DDS Social History Tobacco Use Types Packs/Day Years Used Date Smoking Tobacco: Never Assessed Comments Unknown Sex and Gender Information Value Date Recorded Sex Assigned at Female 05/17/2022 10:16 AM EDT Legal Sex Female 10:16 AM EDT Gender Identity Choose not to disclose 10:16 AM EDT Sexual Orientation Choose not to disclose 2021 10:16 AM EDT documented as of this encounter Plan of Treatment Not on file documented as of this encounter Visit Diagnoses Not on filedocumented in this encounter
--- OUTSIDE RECORDS SUMMARY | 2024-09-07 20:16 | XMS_ITS | Clinical Summary ---
Author Organization [employer] Address [address] [facility] [address] [place] [address] Care Team Providers Care Die Storage Worker Name Role Phone Unavailable Primary Care Provider Unavailabl e Allergies No known active allergies Medications D3-50 1.25 MG (21224 UT) capsule Take 50,000 Units by mouth 1 (one) time per week. 09/26/2023 Active lisinopril 5 MG tablet Take 5 mg by mouth Once per day. 03/15/2024 Active Active Problems No known active problems Encounters Date Type Department Care Team Description 08/01/2024 10:00 AM EST Office Visit [facility] ADULT DENTAL [address] [place] [address] Alayna Shahid DMD from Last 3 Months Social History Tobacco Use Types Packs/Day Years Used Date Smoking Tobacco: Never Smokeless Tobacco: Never Tobacco Cessation:Counseling Given: Not Answered Comments Unknown Sex and Gender Information Value Date Recorded Sex Assigned at Female 05/17/2022 10:16 AM EDT Legal Sex Female 10:16 AM EDT Gender Identity Choose not to disclose 10:16 AM EDT Sexual Orientation Choose not to disclose 2021 10:16 AM EDT Last Filed Vital Signs Vital Sign Reading Time Taken Comments Blood Pressure 142/90 08/01/2024 10:22 AM EST Pulse 75 12/06/2023 1:53 PM EDT Temperature - - Respiratory Rate - - Oxygen Saturation - - Inhaled Oxygen Concentration - - Weight - - Height - - Body Mass Index - - Plan of Treatment Health Maintenance Due Date Last Done Comments CT Colonography 1962 Colonoscopy 1962 Colorectal Cancer Screening 1962 Depression Screening 1962 FIT DNA/Cologuard 1962 FIT 1962 FOBT 1962 HIV Screening 1962 SDOH Screening 1962 Sigmoidoscopy 1962 Alcohol/Substance Use Screening 1974 Hepatitis C Screening 1980 Pap Smear 11/24/1983 Cervical Cancer Screening 1992 HPV/Cotest 1992 Mammogram 2002 Pneumococcal Vaccine: 50+ Years (1 of 1 - PCV) 2012 Dental X-Ray: Full Mouth 08/28/2019 08/27/2016 COVID-19 Vaccine ( season) 2024 04/29/2021, 04/08/2021 Influenza Vaccine (#1) 2024 Dental Oral Exam 06/08/2024 12/06/2023, , 02/19/2022, Additional history exists Dental Prophylaxis 06/08/2024 12/06/2023, 1 07/30/2022, 02/19/2022, Additional history exists Dental X-Ray: Bitewings 03/31/2025 03/30/20 24, 12/06/2023, 05/16/2023, Additional history exists Tobacco Screening 08/01/2025 08/01/2024 DTaP/Tdap/Td Vaccines (2 - Td or Tdap) 09/22/2033 09/23/2023 RSV Patients and Patients Aged 60 years or older (1 - 1-dose 75+ series) 2037 Zoster Vaccines Completed 10/06/2022, 03/19/2022 HIB Vaccines Aged Out No longer eligi ble based on patient's age to complete this topic HPV Vaccines Aged Out No longer eligi ble based on patient's age to complete this topic Hepatitis A Vaccines Aged Out No long er eligible based on patient's age to complete this topic Hepatitis B Vaccines Aged Out No long er eligible based on patient's age to complete this topic IPV Vaccines Aged Out No longer eligi ble based on patient's age to complete this topic Meningococcal Vaccine Aged Out No frances jeferson eligible based on patient's age to complete this topic RSV under 20 months Aged Out No longe r eligible based on patient's age to complete this topic Rotavirus Vaccines Aged Out No longer eligible based on patient's age to complete this topic Procedures Procedure Name Priority Date/Time Associated Diagnosis Comments CASE PRESENTATION, DETAILED AND EXTENSIVE TREATMENT PLANNING Routine 08/01/2024 10:00 AM EST 28 DO RESIN-BASED COMPOSITE - 2 SURF, POSTERIOR Routine 08/01/2024 10:00 AM EST BITEWING - SINGLE RADIOGRAPHIC IMAGE Routine 03/30/2024 1:00 PM EDT Full PROPHYLAXIS - ADULT Routine 024 2:00 PM EDT PERIODIC ORAL EVALUATION - ESTABLISHED PATIENT Routine 12/06/2023 2:00 PM EDT INTRAORAL - COMPLETE SERIES OF RADIOGRAPHIC IMAGES Routine 08/27/2016 12:00 AM EST from Last 3 Months or Most Recently Relevant to Health Maintenance Insurance [facility]
--- OUTSIDE RECORDS SUMMARY | 2024-09-07 20:16 | XMS_ITS | Encounter Summary ---
Author Organization [employer] Address [address] [facility] [address] [place] [address] Care Team Providers Care Seeing Eye Dog Teacher Name Role Phone Unavailable Primary Care Provider Unavailabl e Reason for Visit * Reason Onset Date Comments rs no show 05/03/2024 Encounter Details Date Type Department Care Team (Late st Contact Info) Description 05/03/2024 Telephone [facility] [address] [place] [address] Alayna Shahid DMD rs no show Social History Tobacco Use Types Packs/Day Years Used Date Smoking Tobacco: Never Smokeless Tobacco: Never Comments Unknown Sex and Gender Information Value Date Recorded Sex Assigned at Female 05/17/2022 10:16 AM EDT Legal Sex Female 10:16 AM EDT Gender Identity Choose not to disclose 10:16 AM EDT Sexual Orientation Choose not to disclose 2021 10:16 AM EDT documented as of this encounter Miscellaneous Notes * Telephone Encounter - Mary Morfin - 05/03/2024 9:46 AM EDT Patient called in to rs no show appt. Informed patient that office will be informed that patient called in. They have been informed that office will reach out to rs when they come back up on list. Patient understood DR documented in this encounter Plan of Treatment Not on file documented as of this encounter Visit Diagnoses Not on filedocumented in this encounter
--- OUTSIDE RECORDS SUMMARY | 2024-09-07 20:16 | XMS_ITS | Encounter Summary ---
Author Organization [employer] Address [address] [facility] [address] [place] [address] Care Team Providers Care Upsetter Setter Up Name Role Phone Unavailable Primary Care Provider Unavailabl e Encounter Details Date Type Department Care Team (Latest Contact Info) Description 07/16/2019 Abstract [facility] CONVERSIONS Dental, Provider, DDS Social History Tobacco [...]
--- OUTSIDE RECORDS SUMMARY | 2024-09-07 20:16 | XMS_ITS | Encounter Summary ---
Author Organization [employer] Address [address] [facility] [address] [place] [address] Care Team Providers Care Mortgage Broker Name Role Phone Unavailable Primary Care Provider Unavailabl e Encounter Details Date Type Department Care Team ([facility] st Contact Info) Description 06/30/2023 Abstract [facility] ADULT DENTAL [address] [place] [address] Tomi Narvaez, DDS [address] [place] [address] Social History Tobacco Use Types Packs/Day Years [...]
[2024-09-07 20:26] VITALS: BP 170/80; PULSE 66; RESP 20; TEMP 36.8; O2SAT 100
== END 2024-09-07 20:30 | disposition home or self-care (01) ==
PROVIDERS: Emergency Provider Internal Medicine; PCP Internal Medicine
DX: S80.11XA Contusion of right lower leg, initial encounter (principal); S83.91XA Sprain of unspecified site of right knee, initial encounter; M25.561 Pain in right knee; R10.2 Pelvic and perineal pain; W01.0XXA Fall on same level from slipping, tripping and stumbling without subsequent striking against object, initial encounter; Y93.01 Activity, walking, marching and hiking; Y92.9 Unspecified place or not applicable; Y99.8 Other external cause status
CPT/HCPCS: 73502; 73560; 99282; 99283

== ENCOUNTER → 2024-09-07 15:14 | Outpatient (BNV) | payer OTHER, SELFPAY | PROVIDERS: Visit Provider Radiology Diagnostic Radiology | DX: M25.561 Pain in right knee (principal); M25.551 Pain in right hip | CPT/HCPCS: 73502; 73560 ==

== ENCOUNTER 2024-09-25 07:57 | Outpatient (REF) | payer OTHER, SELFPAY ==
--- OUTSIDE RECORDS SUMMARY | 2024-09-25 08:10 | XMS_ITS | Encounter Summary ---
Author Organization [employer] Address [address] [facility] [address] [place] [address] Care Team Providers Care Outside Cutter Name Role Phone Unavailable Primary Care Provider Unavailabl e Reason for Visit * Reason Onset Date Comments rs no show 05/03/2024 Encounter Details Date Type Department Care Team (Late st Contact Info) Description 05/03/2024 Telephone [facility] [address] [place] [address] Alayna Shahid DMD rs no show Social [...]
--- OUTSIDE RECORDS SUMMARY | 2024-09-25 08:10 | XMS_ITS | Clinical Summary ---
Author Organization [employer] Address [address] [facility] [address] [place] [address] Care Team Providers Care Brick Chimney Builder Name Role Phone Unavailable Primary Care Provider Unavailabl e Allergies No known active allergies Medications D3-50 1.25 MG (08967 UT) capsule Take 50,000 Units by mouth 1 (one) time per week. 09/26/2023 Active lisinopril 5 MG tablet Take 5 mg by mouth Once per day. 03/15/2024 Active Active Problems No known active problems Encounters Date Type Department Care Team Description 08/01/2024 10:00 AM EST Office Visit [facility] ADULT DENTAL [address] [place] [address] Alayna Shahid DMD from Last 3 Months [...]
--- OUTSIDE RECORDS SUMMARY | 2024-09-25 08:10 | XMS_ITS | Encounter Summary ---
Author Organization [employer] Address [address] [facility] [address] [place] [address] Care Team Providers Care Engineering Lecturer Name Role Phone Unavailable Primary Care Provider Unavailabl e Encounter Details Date Type Department Care Team ([facility] st Contact Info) Description 06/30/2023 Abstract [facility] ADULT DENTAL [address] [place] [address] Tomi Narvaez, DDS [address] [place] [address] Social History Tobacco Use Types Packs/Day Years [...]
--- OUTSIDE RECORDS SUMMARY | 2024-09-25 08:10 | XMS_ITS | Data Portability ---
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 11/02: labs from 08/04 show mild increase in TSH with subnormal fT4. Also vitD low at 19 with PTH of 65. Hx Staghorn calculus. 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 11/02: Labs from 08/04 show mild increase in TSH with subnormal fT4. Also vitD low at 19 with PTH of 65. Hx Staghorn calculus. 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 11/02: Labs from 08/04 show mild increase in TSH with subnormal fT4. Also vitD low at 19 with PTH of 65. Hx Staghorn calculus. 06/06: complaining of pain right had side under chin up to ears. Feels sx of something dropping into both ears. 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 11/02: Labs from 08/04 show mild increase in TSH with subnormal fT4. Also vitD low at 19 with PTH of 65. Hx Staghorn calculus. 06/06: complaining of pain right had side under chin up to ears. Feels sx of something dropping into both ears. Can sometimes see something come out- small bit of thick wax 07/06: Check thyroid labs q 6 months for the next year. PCP can prescribe vitamin D as needed. 07/06: Tried twice and goes to voice mail (2:42 and 2:49) for a 2:40 PM appointment. Third try using work number- also no answer. Able to reschedule with patient at end of day. 16 minutes [email or web address] Not available 07/16/2020 09:29:59 Plan of Treatment Reminders Order Date Submit Date Provider Last Modified By Organization Details Last Modified Time Details Appointments None recorded. Lab PTH (parathyr oid hormone), intact, serum or plasma 2019 020 [facility] (Lab), [address] [place] [address], [address], 1 16:18:45 vitamin D, 25-hydrox y, total, serum 2019 020 [facility] (Lab), [address] [place] [address], [address], 1 16:18:54 T4, free, serum 2019 020 [facility] (Lab), [address] [place], [address], 1 16:19:02 TSH, serum or plasma 2019 020 [facility] (Lab), [address] [place], [address], 1 16:19:10 T4, free, serum 2017 018 [facility], [address] [place] [address], [address], 8 10:13:28 TSH, serum or plasma 2017 018 [facility], [address] [place] [address], [address], 8 10:24:19 renal function panel, serum 2017 018 [facility], [address] [place] [address], [address], 8 09:52:21 PTH (parathyr oid hormone), intact, serum or plasma 2017 018 [facility], [address] [place] [address], [address], 8 10:13:29 vitamin D, 25-hydrox y, total, serum 2017 018 [facility], [address] [place] [address], [address], 8 10:13:30 T4, free, serum 2017 018 [facility], [address] [place] [address], [address], 8 14:06:26 TSH, serum or plasma 2017 018 [facility], [address] [place] [address], [address], 8 14:23:17 renal function panel, serum 2017 018 [facility], [address] [place] [address], [address], 8 10:39:03 PTH (parathyr oid hormone), intact, serum or plasma 2017 018 [facility], [address] [place] [address], [address], 8 14:06:27 vitamin D, 25-hydrox y, total, serum 2017 018 [facility], [address] [place] [address], [address], 8 14:06:28 T4, free, serum 2016 017 [facility], [address] [place] [address], [address], 7 13:38:52 TSH, serum or plasma 2016 017 [facility], [address] [place] [address], [address], 7 13:42:20 T4, free, serum 2016 018 [facility], [address] [place] [address], [address], 8 14:09:52 TSH, serum or plasma 2016 018 [facility], [address] [place] [address], [address], 8 14:24:24 renal function panel, serum 2016 017 [facility], [address] [place] [address], 18[address], 7 15:39:28 PTH (parathyr oid hormone), intact, serum or plasma 2016 017 [facility], [address] [place] [address], [address], 7 10:56:17 vitamin D, 25-hydrox y, total, serum 2016 017 [facility], [address] [place] [address], 23648, 7 13:38:53 vitamin D, 25-hydrox y, total, serum 2016 018 [facility], [address] [place] [address], [address], 8 14:09:53 renal function panel, serum 2016 018 [facility], [address] [place] [address], [address], 8 15:39:14 PTH (parathyr oid hormone), intact, serum or plasma 2016 018 [facility], [address] [place] [address], [address]678, 8 14:09:53 Referral None recorded. Procedures None recorded. Surgeries None recorded. Imaging US, thyroid - please call patient to schedule on Tuesday AM. 2019 020 [facility] (Imaging), [address] [place], [address], 0 18:55:24 Medication Orders Vitamin D2 1,250 mcg (50,000 unit) capsule 2017 018 [id number], [address], [place], [id number], 0 14:44:16 Vitamin D2 1,250 mcg (50,000 unit) capsule 2017 018 [email or web address] [facility] #[id number], [address], [place], [id number], 0 14:44:16 Patient TargetsNo targets recorded. Patient Instructions Encounter Date Encounter Id Patient Instructions Last Modified By Organization Details Last Modified Time 05/04/2017 [id number] - Get labs done every 3 months. [email or web address] Not available 05/04/2017 17:19:20 6 months [email or web address] Not available 1 17:05:41 10/21/2017 [id number] - Get labs done every 3 months. - Take vitamin D one capsule every week. [email or web address] Not available 10/21/2017 10:28:45 6 months [email or web address] Not available 0 10/21/2017 10:11:45 04/25/2018 [id number] - Get labs done every 6 months. - Take vitamin D one capsule every week. [email or web address] Not available 04/25/2018 11:48:07 6 months [email or web address] Not available 1 11:32:36 06/09/2020 [id number] - Get labs done now and every 6 months. [email or web address] Not available 06/09/2020 15:21:18 Will need f/u to review labs and u/s study. Any 20 minute slot in 4-6 weeks? [email or web address] Not available 06/09/2020 15:22:53 07/14/2020 [id number] - Get labs done now and every 6 months. [email or web address] Not available 07/14/2020 15:43:52 one year 20 minutes [email or web address] Not available 07/16/2020 09:33:59 Reason for Referral None Reported. Results Created Date Observation Date Name Description Value Unit Range Abnormal Flag Note LastModifiedBy Organization Detail LastModifiedTime 05/16/20 17 05/16/2017 T4, free, serum free T4 0.63 NG/dL 0.75-1 .54 low Not Available [address], [address], 05/16/2017 13:38:52 05/16/20 17 05/16/2017 vitam in D, 25-hy droxy , total , serum vitamin D 25-hydroxy EIA 20.8 NG/mL 20.0-9 9.9 Thera py is based on measu remen t of total 25-OH D, with level s less than 20 ng/mL indic ative of Vitam in D defic iency . Level s betwe en 20ng/ mL and 30 ng/mL sugge st insuf ficie ncy. Optim al Level s are great er than 30 ng/mL . Not Available [address], [address], 05/16/2017 13:38:52 05/16/20 17 05/16/2017 TSH, serum or plasm a TSH 3.11 uIU/m L 0.50-6 .00 The Ameri can Colle ge of Endoc rinol ogy and Ameri can Thyro id Assoc iatio n recom mend goal TSH value s betwe en 0.4-4 .0 mIU/m L. Not Available [address], [address], 05/16/2017 13:42:19 05/16/20 17 05/16/2017 renal funct ion panel , serum glucose 93 mg/dL 70-100 Not Available [address], [address], 05/16/2017 15:39:28 05/16/20 17 05/16/2017 renal funct ion panel , serum BUN 14 mg/dL 7-18 Not Available [address], [address], 05/16/2017 15:39:28 05/16/20 17 05/16/2017 renal funct ion panel , serum creatinine 0.8 mg/dL 0.8-1. 3 Not Available [address], [address], 05/16/2017 15:39:28 05/16/20 17 05/16/2017 renal funct ion panel , serum B/C 17.5 ratio Not Available [address], [address], 05/16/2017 15:39:28 05/16/20 17 05/16/2017 renal funct ion panel , serum GFR -non 83.7 mL/mi n Recom zak d GFR by the Natio nal Kidne y Found ation >60 mL/mi n/1.7 3m2 - Giulia l <60 mL/mi n/1.7 3m2 - Chron ic Kidne y Disea se <15 mL/mi n/1.7 3m2 - Kidne y Failu re Not Available [address], [address], 05/16/2017 15:39:28 05/16/20 17 05/16/2017 renal funct ion panel , serum GFR - if 96.3 mL/mi n For Afric an Ameri can patie nts: Resul ts Multi plied by 1.21 Not Available [address], [address], 05/16/2017 15:39:28 05/16/20 17 05/16/2017 renal funct ion panel , serum sodium 142 mmol/ L 136-14 5 Not Available [address], [address], 05/16/2017 15:39:28 05/16/20 17 05/16/2017 renal funct ion panel , serum potassium 4.4 mmol/ L 3.5-5. 1 Not Available [address], [address], 05/16/2017 15:39:28 05/16/20 17 05/16/2017 renal funct ion panel , serum chloride 103 mmol/ L 96-107 Not Available [address], [address], 05/16/2017 15:39:28 05/16/20 17 05/16/2017 renal funct ion panel , serum anion gap 10.8 5.0-15 .0 Not Available [address], [address], 05/16/2017 15:39:28 05/16/20 17 05/16/2017 renal funct ion panel , serum CO2 28 mmol/ L 21-32 Not Available [address], [address], 05/16/2017 15:39:28 05/16/20 17 05/16/2017 renal funct ion panel , serum calcium 9.6 mg/dL 8.5-10 .3 Not Available [address], [address], 05/16/2017 15:39:28 05/16/20 17 05/16/2017 renal funct ion panel , serum albumin 3.9 g/dL 3.4-5. 0 Not Available [address], [address], 05/16/2017 15:39:28 05/16/20 17 05/16/2017 renal funct ion panel , serum phosphorous 3.60 mg/dL 2.50-4 .90 Not Available [address], [address], 05/16/2017 15:39:28 05/16/20 17 05/17/2017 PTH (para thyro id hormo ne), intac t, serum or plasm a PTH intact 31.5 pg/mL 9.6-66 .3 Not Available [address], [address], 05/17/2017 10:56:16 08/17/19 18 08/17/2017 T4, free, serum free T4 0.68 NG/dL 0.75-1 .54 low Not Available [address], [address], 08/17/2017 14:09:52 08/17/19 18 08/17/2017 PTH (para thyro id hormo ne), intac t, serum or plasm a PTH intact 65.0 pg/mL 9.6-66 .3 Not Available [address], [address], 08/17/2017 14:09:52 08/17/19 18 08/17/2017 vitam in D, 25-hy droxy , total , serum vitamin D 25-hydroxy EIA 18.7 NG/mL 20.0-9 9.9 low Thera py is based on measu remen t of total 25-OH D, with level s less than 20 ng/mL indic ative of Vitam in D defic iency . Level s betwe en 20ng/ mL and 30 ng/mL sugge st insuf ficie ncy. Optim al Level s are great er than 30 ng/mL . Not Available [address], [address], 08/17/2017 14:09:53 08/17/19 18 08/17/2017 TSH, serum or plasm a TSH 4.10 uIU/m L 0.50-6 .00 The Ameri can Colle ge of Endoc rinol ogy and Ameri can Thyro id Assoc iatio n recom mend goal TSH value s betwe en 0.4-4 .0 mIU/m L. Not Available [address], [address], 08/17/2017 14:24:23 08/17/19 18 08/17/2017 renal funct ion panel , serum glucose 102 mg/dL 70-100 high Not Available [address], [address], 08/17/2017 15:39:12 08/17/19 18 08/17/2017 renal funct ion panel , serum BUN 18 mg/dL 7-18 Not Available [address], [address], 08/17/2017 15:39:12 08/17/19 18 08/17/2017 renal funct ion panel , serum creatinine 0.9 mg/dL 0.8-1. 3 Not Available [address], [address], 08/17/2017 15:39:12 08/17/19 18 08/17/2017 renal funct ion panel , serum B/C 20.0 ratio Not Available [address], [address], 08/17/2017 15:39:12 08/17/19 18 08/17/2017 renal funct ion panel , serum GFR -non 73.1 mL/mi n Recom zak d GFR by the Natio nal Kidne y Found ation >60 mL/mi n/1.7 3m2 - Giulia l <60 mL/mi n/1.7 3m2 - Chron ic Kidne y Disea se <15 mL/mi n/1.7 3m2 - Kidne y Failu re Not Available [address], [address], 08/17/2017 15:39:12 08/17/19 18 08/17/2017 renal funct ion panel , serum GFR - if 84.0 mL/mi n For Afric an Ameri can patie nts: Resul ts Multi plied by 1.21 Not Available [address], [address], 08/17/2017 15:39:12 08/17/19 18 08/17/2017 renal funct ion panel , serum sodium 143 mmol/ L 136-14 5 Not Available [address], [address], 08/17/2017 15:39:12 08/17/19 18 08/17/2017 renal funct ion panel , serum potassium 3.9 mmol/ L 3.5-5. 1 Not Available [address], [address], 08/17/2017 15:39:12 08/17/19 18 08/17/2017 renal funct ion panel , serum chloride 105 mmol/ L 96-107 Not Available [address], [address], 08/17/2017 15:39:12 08/17/19 18 08/17/2017 renal funct ion panel , serum anion gap 10.6 5.0-15 .0 Not Available [address], [address], 08/17/2017 15:39:12 08/17/19 18 08/17/2017 renal funct ion panel , serum CO2 27 mmol/ L 21-32 Not Available [address], [address], 08/17/2017 15:39:12 08/17/19 18 08/17/2017 renal funct ion panel , serum calcium 9.7 mg/dL 8.5-10 .3 Not Available [address], [address], 08/17/2017 15:39:12 08/17/19 18 08/17/2017 renal funct ion panel , serum albumin 4.2 g/dL 3.4-5. 0 Not Available [address], [address], 08/17/2017 15:39:12 08/17/19 18 08/17/2017 renal funct ion panel , serum phosphorous 3.00 mg/dL 2.50-4 .90 Not Available [address], [address], 08/17/2017 15:39:12 10/22/19 18 10/24/2017 renal funct ion panel , serum glucose 98 mg/dL 70-100 Not Available [address], [address], 10/24/2017 10:39:00 10/22/19 18 10/24/2017 renal funct ion panel , serum BUN 16 mg/dL 7-18 Not Available [address], [address], 10/24/2017 10:39:00 10/22/19 18 10/24/2017 renal funct ion panel , serum creatinine 0.9 mg/dL 0.8-1. 3 Not Available [address], [address], 10/24/2017 10:39:00 10/22/19 18 10/24/2017 renal funct ion panel , serum B/C 17.8 ratio Not Available [address], [address], 10/24/2017 10:39:00 10/22/19 18 10/24/2017 renal funct ion panel , serum GFR -non 73.1 mL/mi n Recom zak d GFR by the Natio nal Kidne y Found ation >60 mL/mi n/1.7 3m2 - Giulia l <60 mL/mi n/1.7 3m2 - Chron ic Kidne y Disea se <15 mL/mi n/1.7 3m2 - Kidne y Failu re Not Available [address], [address], 10/24/2017 10:39:00 10/22/19 18 10/24/2017 renal funct ion panel , serum GFR - if 84.0 mL/mi n For Afric an Amdelmy can patie nts: Resul ts Multi plied by 1.21 Not Available [address], [address], 10/24/2017 10:39:00 10/22/19 18 10/24/2017 renal funct ion panel , serum sodium 147 mmol/ L 136-14 5 high SUBHASH=V erifi ed by Greg lind Not Available [address], [address], 10/24/2017 10:39:00 10/22/19 18 10/24/2017 renal funct ion panel , serum potassium 4.2 mmol/ L 3.5-5. 1 Not Available [address], [address], 10/24/2017 10:39:00 10/22/19 18 10/24/2017 renal funct ion panel , serum chloride 106 mmol/ L 96-107 Not Available [address], [address], 10/24/2017 10:39:00 10/22/19 18 10/24/2017 renal funct ion panel , serum anion gap 10.3 5.0-15 .0 Not Available [address], [address], 10/24/2017 10:39:00 10/22/19 18 10/24/2017 renal funct ion panel , serum CO2 31 mmol/ L 21-32 Not Available [address], [address], 10/24/2017 10:39:00 10/22/19 18 10/24/2017 renal funct ion panel , serum calcium 9.1 mg/dL 8.5-10 .3 Not Available [address], [address], 10/24/2017 10:39:00 10/22/19 18 10/24/2017 renal funct ion panel , serum albumin 4.2 g/dL 3.4-5. 0 Not Available [address], [address], 10/24/2017 10:39:00 10/22/19 18 10/24/2017 renal funct ion panel , serum phosphorous 3.90 mg/dL 2.50-4 .90 Not Available [address], [address], 10/24/2017 10:39:00 10/22/19 18 10/24/2017 T4, free, serum free T4 0.75 NG/dL 0.75-1 .54 Not Available [address], [address], 10/24/2017 14:06:26 10/22/19 18 10/24/2017 PTH (para thyro id hormo ne), intac t, serum or plasm a PTH intact 35.5 pg/mL 9.6-66 .3 Not Available [address], [address], 10/24/2017 14:06:27 10/22/19 18 10/24/2017 vitam in D, 25-hy droxy , total , serum vitamin D 25-hydroxy EIA 20.2 NG/mL 20.0-9 9.9 Thera py is based on measu remen t of total 25-OH D, with level s less than 20 ng/mL indic ative of Vitam in D defic iency . Level s betwe en 20ng/ mL and 30 ng/mL sugge st insuf ficie ncy. Optim al Level s are great er than 30 ng/mL . Not Available [address], [address], 10/24/2017 14:06:27 10/22/19 18 10/24/2017 TSH, serum or plasm a TSH 2.77 uIU/m L 0.50-6 .00 The Ameri can Colle ge of Endoc rinol ogy and Ameri can Thyro id Assoc iatio n recom mend goal TSH value s betwe en 0.4-4 .0 mIU/m L. Not Available [address], [address], 10/24/2017 14:23:16 04/25/20 18 04/26/2018 renal funct ion panel , serum glucose 127 mg/dL 70-100 high LIPG= Speci men Marke dly Lipem ic. Chem Resul ts may be effec naresh. Not Available [address], [address], 04/26/2018 09:52:19 04/25/20 18 04/26/2018 renal funct ion panel , serum BUN 12 mg/dL 7-18 Not Available [address], [address], 04/26/2018 09:52:19 04/25/20 18 04/26/2018 renal funct ion panel , serum creatinine 0.9 mg/dL 0.8-1. 3 Not Available [address], [address], 04/26/2018 09:52:19 04/25/20 18 04/26/2018 renal funct ion panel , serum B/C 13.3 ratio Not Available [address], [address], 04/26/2018 09:52:19 04/25/20 18 04/26/2018 renal funct ion panel , serum GFR -non 72.8 mL/mi n Recom zak d GFR by the Natio nal Kidne y Found ation >60 mL/mi n/1.7 3m2 - Giulia l <60 mL/mi n/1.7 3m2 - Chron ic Kidne y Disea se <15 mL/mi n/1.7 3m2 - Kidne y Failu re Not Available [address], [address], 04/26/2018 09:52:19 04/25/20 18 04/26/2018 renal funct ion panel , serum GFR - if 83.7 mL/mi n For Afric an Ameri can patie nts: Resul ts Multi plied by 1.21 Not Available [address], [address], 04/26/2018 09:52:19 04/25/20 18 04/26/2018 renal funct ion panel , serum sodium 145 mmol/ L 136-14 5 Not Available [address], [address], 04/26/2018 09:52:19 04/25/20 18 04/26/2018 renal funct ion panel , serum potassium 4.3 mmol/ L 3.5-5. 1 Not Available [address], [address], 04/26/2018 09:52:19 04/25/20 18 04/26/2018 renal funct ion panel , serum chloride 105 mmol/ L 96-107 Not Available [address], [address], 04/26/2018 09:52:19 04/25/20 18 04/26/2018 renal funct ion panel , serum anion gap 10.3 5.0-15 .0 Not Available [address], [address], 04/26/2018 09:52:19 04/25/20 18 04/26/2018 renal funct ion panel , serum CO2 30 mmol/ L 21-32 Not Available [address], [address], 04/26/2018 09:52:19 04/25/20 18 04/26/2018 renal funct ion panel , serum calcium 8.8 mg/dL 8.5-10 .3 Not Available [address], [address], 04/26/2018 09:52:19 04/25/20 18 04/26/2018 renal funct ion panel , serum albumin 3.9 g/dL 3.4-5. 0 Not Available [address], [address], 04/26/2018 09:52:19 04/25/20 18 04/26/2018 renal funct ion panel , serum phosphorous 3.50 mg/dL 2.50-4 .90 Not Available [address], [address], 04/26/2018 09:52:19 04/25/20 18 04/26/2018 T4, free, serum free T4 0.72 NG/dL 0.75-1 .54 low Not Available [address], [address], 04/26/2018 10:13:26 04/25/20 18 04/26/2018 PTH (para thyro id hormo ne), intac t, serum or plasm a PTH intact 76.7 pg/mL 9.6-66 .3 high Not Available [address], [address], 04/26/2018 10:13:29 04/25/20 18 04/26/2018 vitam in D, 25-hy droxy , total , serum vitamin D 25-hydroxy EIA 22.7 NG/mL 20.0-9 9.9 Thera py is based on measu remen t of total 25-OH D, with level s less than 20 ng/mL indic ative of Vitam in D defic iency . Level s betwe en 20ng/ mL and 30 ng/mL sugge st insuf ficie ncy. Optim al Level s are great er than 30 ng/mL . Not Available [address], [address], 04/26/2018 10:13:30 04/25/20 18 04/26/2018 TSH, serum or plasm a TSH 1.91 uIU/m L 0.50-6 .00 The Ameri can Colle ge of Endoc rinol ogy and Ameri can Thyro id Assoc iatio n recom mend goal TSH value s betwe en 0.4-4 .0 mIU/m L. Not Available [address], [address], 04/26/2018 10:24:18 06/17/20 20 06/17/2020 US, thyro id OBSERV ATION: Examin ation: Thyroi d ultras ound Indica tion: Lump in throat . Histor y of left hemith yroide ctomy. Thyroi d ultras ound study was perfor med and multip le static and color flow images were obtain ed. Dimens ions are provid ed as transv erse by cole al by AP. The right lobe measur es 2.3 x 4.6 x 1.7 cm yieldi ng a volume of 9.4 cc. The lobe is fairly homoge neous in echote xture. There are no discre te nodule s identi fied. The isthmu s measur es 0.2 cm in width. There are no nodule s in the isthmu s. The left lobe is not visual ized and was, by histor y, remove d surgic ally. Impres teddy: Status post left hemith yroide ctomy and normal -appea ring right lobe and isthmu s. No enlarg ement or masses are seen in the thyroi d. Electr onical ly signed Readin g Physic tung: Jacob wakefield [facility] [address], [place], [address], 07/14/2020 15:42:07 Result Notes None recorded. 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 [place], [address], [facility] 6 14:23:16 Hypercholester olemia 84466307 Active Frida Noble LPN null, [facility] 6 09:45:14 Hypercalcemia 19726540 [place], [address], [facility] 6 14:23:16 Multinodular goiter 160851610 [place], [address], [facility] 6 15:43:53 Neoplasm of thyroid gland [id number] Michael Lewis MD [facility] [place], [address], [facility] 6 15:43:53 Problem Notes None recorded. Procedures Surgical History Date Name Laterality Status Provider Name and Address Organization Details Recorded Time 8 POC Urinalysis Testing completed Jacob Lewis MD [facility] [place], [address], [facility] 04/25/2018 11:32:35 8 POC Urinalysis Testing [place], [address], [facility] 10/21/2017 10:11:45 7 POC Urinalysis Testing [place], [address], [facility] 05/04/2017 17:05:41 7 POC Urinalysis Testing completed Jacob Lewis MD [facility] [place], [address], [facility] 10/21/2016 15:03:39 6 POC Urinalysis Testing completed Frida Noble LPN [facility] 03/19/2016 14:23:02 Imaging Results Imaging Date Name Status LastModified by Organiz ation Details LastModified Time 06/17/2020 [facility] [address] , [place], [address], 07/14/2020 15:42:07 Procedure Notes None recorded. Medical Equipment None Reported. Allergies No known drug allergies Medications Name Sig Start Date Stop Date Status Note LastModified by Organization Details LastModified Time ra vit b6 50mg 100tab take 1 tablet by mouth once daily 05/04 completed 05/04/17 pt reports no longer taking this medicati on. Not Available Not Available Not Available cyclobenz aprine 10 mg tablet 03/19 completed Not Available Not Available Not Available atorvasta tin 40 mg tablet TK 1 T PO QD active Not Available Not Available No t Available azithromy enedelia 250 mg tablet 06/09 completed Not Available Not Available Not Available tizanidin e 4 mg tablet TAKE 1 TABLET BY MOUTH TID NEEDED FOR PAINFUL MUSCLE SPASMS 06/09 completed Not Available Not Available Not Available sulfameth oxazole 400 mg-trimet hoprim 80 mg tablet 05/04 completed 05/04/17 pt reports no longer taking this medicati on. Not Available Not Available Not Available tretinoin 0.025 % topical cream 03/19 completed prescrib ed by greg oliver - pt reports it bothered her skin , she will follow up with dermattrung oliver Not Available Not Available Not Available phenazopy ridine 200 mg tablet 05/04 completed 05/04/17 pt reports no longer taking this medicati on. Not Available Not Available Not Available metronida zole 500 mg tablet 05/04 completed 05/04/17 pt reports no longer taking this medicati on. Not Available Not Available Not Available allopurin ol 100 mg tablet 06/09 completed Not Available Not Available Not Available tretinoin 0.05 % topical cream 03/19 completed prescrib ed by greg oliver - pt reports it bothered her skin , she will follow up with dermattrung oliver Not Available Not Available Not Available ciproflox acin 500 mg tablet 10/21 completed Not Available Not Available Not Available sulfameth oxazole 800 mg-trimet hoprim 160 mg tablet Take 1 tablet every 12 hours by oral route for 3 days. 05/04 completed 05/04/17 pt reports no longer taking this medicati on. Not Available Not Available Not Available tramadol 50 mg tablet 05/04 completed 05/04/17 pt reports no longer taking this medicati on. Not Available Not Available Not Available tamsulosi n 0.4 mg capsule 05/04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 symptoms: pain since COVID in 10/04. In past, reported a thread across neck- like a fishbone.Went to ENT in [place]. Told it was OK. Takes time to swallow. Currently feels it is a light thread . Swallowing water is OK. 07/06: Sx from before not as bad. 06/06: cc is feels a thread inside her throat. Sometimes hurts on right had side of throat. Feels like a lump. Pain can go from throat to ears. Tried calling PCP but got no response. Related Hx:Had left hemithyroidectomy with hope that PTH problem (previous dx) was on left. Ended up with left yoon-thyroidectomy. 2016- Dx of stones- staghorn. She reports that Urology told her no milk, no potatoes, no spinach, no nuts. Told her to take TUMS after she eats. Saw RD for stones. Originally told of PTH problem in [place]- had high calcium in blood. Told she could take calcium but don't take vitamin D. Reportedly had BMD in [place]- told it was OK. Hasn't wanted to take vitamin D with calcium given hx of Staghorn stone. PTH= 34 (06/06);Vitamin D= 21.8 (06/06); Did laser on stones earlier 2019. Takes lemon water to help with stones. Also told of high cholesterol in past. On atorva (40 mg) - sometimes, not all the time. 2-3x per week. PCP: Alissa Ashley ([place])Hx: Staghorn stones (Hasn't had f/u). Patient agreed to this visit via phone due to the COVID -19 pandemic. Patient understands this is a scheduled visit and the usual procedures with regard to billing and confidentiality apply. Patient was notified that the provider location is [facility] [place] Patient location: [place] During the visit the patient? s medical history and medical record were reviewed. The patient was notified to call our office for worsening or urgent symptoms. ROS:No fevers or chills.No headaches. No cough or SOB. Some YUAN with stairs.No n/v or abdominal pain.No muscle pains. No cramping.Drinks a lot of water to help kidney stones. No dizziness with standing in AM. No tingling around mouth, fingers or toes. Occ tingling fingers if lies wrong while sleeping No bruises or itching or rashes. Jacob Lewis MD [address] [place] [address], [phone], [facility] 07/16/2020 09:34:28 OBGyn Episode No OBEpisode recorded.
--- OUTSIDE RECORDS SUMMARY | 2024-09-25 08:10 | XMS_ITS | Encounter Summary ---
Author Organization [employer] Address [address] [place] [address] Care Team Providers Care Pantograph Machine Set Up Operator Name Role Phone Unavailable Primary Care Provider Unavailabl e Encounter Details Date Type Department Care Team (Latest Contact Info) Description 02/19/2022 Abstract [facility] CONVERSIONS Dental, Provider, DDS Social History [...]
--- OUTSIDE RECORDS SUMMARY | 2024-09-25 08:10 | XMS_ITS | Encounter Summary ---
Author Organization [employer] Address [address] [address] [address] [place] [address] Care Team Providers Care Priming Machine Operator Name Role Phone Unavailable Primary Care Provider Unavailabl e Encounter Details Date Type Department Care Team (Latest Contact Info) Description 07/16/[address] [facility] CONVERSIONS Dental, Provider, DDS Social History [...]
[2024-09-25 10:57] LABS: Alanine Aminotransferase 20 U/L (0-31); Anion Gap 12 (12-20); Aspartate Amino Transferase 24 U/L (5-31); Blood Urea Nitrogen 17 mg/dL (9-16); Calcium 9.2 mg/dL (8.4-10.2); Carbon Dioxide 25 mmol/L (22-29); Chloride 111 mmol/L (96-108); Cholesterol 222 mg/dL (<200); Estimated Glomerular Filt Rate > 60; Glucose Fasting 108 mg/dL (60-99); HDL Cholesterol 41 mg/dL (>40); LDL Cholesterol Calculated 149 mg/dL (<100); Potassium 3.7 mmol/L (3.3-5.1); Sodium 144 mmol/L (135-145); Triglycerides 163 mg/dL (<150)
[2024-09-25 11:14] LABS: TSH reflex Free T4 2.72 uIU/mL (0.32-4.0); Vitamin D 25-OH Total 39.4 ng/mL (>30)
== END 2024-09-25 07:58 | disposition home or self-care (01) ==
LOC: HO.HMGCLDS 07:57
PROVIDERS: PCP Internal Medicine; Visit Provider Internal Medicine
DX: E66.9 Obesity, unspecified (principal); I10 Essential (primary) hypertension; E55.9 Vitamin D deficiency, unspecified; E78.5 Hyperlipidemia, unspecified
CPT/HCPCS: 36415; 80048; 80061; 82306; 84443; 84450; 84460

== ENCOUNTER 2024-09-26 09:19 | Outpatient (AMB) | payer OTHER, SELFPAY ==
--- NOTE | 2024-09-26 09:26 | MHC.OFFWIV ---
Intake Vital Signs 09/26/24 09:32 Weight 212 lb BP 140/80 H Blood Pressure Location Rt brachial Position Sitting Pulse 68 Pulse Source Pulse Oximeter Pulse Oximetry (%) 100 Oxygen Delivery Method Room Air Intake Visit Reasons: EP Fall, Knee pain, RT knee (NO WC) Intake Note: Patient here for fall that happened two weeks ago and is still having right knee pain. Patient Tobacco Use Status: Never used Tobacco Allergies No Known Allergies [No Known Allergies*] Allergy (Verified 09/26/24 09:36) Do you need a note to return to daycare/school/sports/work: No HPI HPI Comments History of Present Illness Details Patient is a 63yo F who presents to office with continual R knee pain post fall Fall occurred 2 weeks ago; 09/07 Was seen at [facility] and negative xray of knee Continual pain since Tried ice and heat without relief No pain scalr given but tender with bending/straightening Also states giving out on her but no recurrent falls She denies pain radiation No pain to L knee No previous surgery to knee Has seen dr simons in past from [facility] Medical History (Updated 09/26/24 @ 09:55 by Nicolette Hurt PA-C) History of uric acid staghorn calculus Obesity (BMI 30.0-34.9) Essential hypertension Vitamin D deficiency Epigastric pain Dyslipidemia Bursitis of right shoulder Nephrolithiasis Hyperuricosuria Surgical History (Updated 09/25/24 @ 00:16 by Irma Villalobos MD) History of thyroid surgery H/O lithotripsy Family History Father Asthma Mother Ovarian cancer Social History Housing: Apartment Patient Tobacco Use Status: Never used Tobacco e-Cigarette/Vaping Use: Never Used Second Hand Smoke Exposure: No service: No Current occupational status: employed 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 Speaking full sentences. Skin: Warm dry throughout. No R knee or lower leg edema, erythema or ecchymosis Eye: EOMI Respiratory: No respiratory distress Cardiac: No calf ttp or bilateral leg edema bilaterally MSK: + ttp medial R knee joint space, inferior aspect of patells and tibial plateau. + pain with valgus force applied. + full extension and flexion to 90 degrees R knee. No ttp L knee. Neurology: Alert. No aphasia or facial droop. Gait without abnormality Psych: Good mood and affect Assessment & Plan Assessment & Plan (1) Knee pain: Code(s): M25.569 - Pain in unspecified knee Qualifiers: Chronicity: acute Laterality: right Qualified Code(s): M25.561 - Pain in right knee Plan: Patient seen and evaluated. XRay R knee: same as previous read MELANIE provided Ortho referral given Has PCP follow up tomorrow for rescheduled/late appointment Patient gave verbal understanding and had no additional questions or concerns at time of discharge All questions answered Orders: Orders XR knee RT 3V Today M25.569 - Pain in unspecified knee Referrals Orthopedics Referral M25.561 - Pain in right knee Coding Level of Care Code Est Pt Level 3 (72183) Diagnoses Acute pain of right knee M25.561 Chronicity: acute Laterality: right
[2024-09-26 09:32] VITALS: BP 140/80; PULSE 68; O2SAT 100
--- OUTSIDE RECORDS SUMMARY | 2024-09-26 10:06 | XMS_ITS | Encounter Summary ---
Author Organization [employer] Address [address] [facility] [address] [place] [address] Care Team Providers Care Construction Pit Worker Name Role Phone Unavailable Primary Care Provider Unavailabl e Encounter Details Date Type Department Care Team ([facility] st Contact Info) Description 06/30/2023 Abstract [facility] [address] [place] [address] Tomi Narvaez, DDS [address] [place] [address] Social History Tobacco Use Types Packs/Day Years [...]
--- OUTSIDE RECORDS SUMMARY | 2024-09-26 10:06 | XMS_ITS | Clinical Summary ---
Author Organization [employer] Address [address] [facility] [address] [place] [address] Care Team Providers Care Cardiovascular Tech Name Role Phone Unavailable Primary Care Provider Unavailabl e Allergies No known active allergies Medications D3-50 1.25 MG (71300 UT) capsule Take 50,000 Units by mouth 1 (one) time per week. 09/26/2023 Active lisinopril 5 MG tablet Take 5 mg by mouth Once per day. 03/15/2024 Active Active Problems No known active problems Encounters Date Type Department Care Team Description 08/01/2024 10:00 AM EST Office Visit [facility] [address] [place] [address] Alayna Shahid DMD from Last 3 Months [...] Most Recently Relevant to Health Maintenance Insurance [facility]
--- OUTSIDE RECORDS SUMMARY | 2024-09-26 10:06 | XMS_ITS | Data Portability ---
Author Organization [facility], , [facility] Address [address] [place] [address] Care Team Providers Care Bush Hog Operator Name Role Phone SERGIO ASHLEY Primary Care Provider Assessment Encounter Date Assessment Date Assessment LastModified [...] hormone), intact, serum or plasma 2019 020 [facility] (Lab), [address] [place] [address], [address], 1 16:18:45 vitamin D, 25-hydrox y, total, serum 2019 020 [facility] (Lab), [address] [place] [address], [address], 1 16:18:54 T4, free, serum 2019 020 [facility] (Lab), [address] [place], [address], 1 16:19:02 TSH, serum or plasma 2019 020 [facility] (Lab), [address] [place], [address], 1 16:19:10 T4, free, serum 2017 018 [facility], [address] [place] [address], [address], 8 10:13:28 TSH, serum or plasma 2017 018 [facility], [address] [place] [address], [address], 8 10:24:19 renal function panel, serum 2017 018 [facility], [address] [place] [address], [address], 8 09:52:21 PTH (parathyr oid hormone), intact, serum or plasma 2017 018 [facility], [address] [place] [address], [address], 8 10:13:29 vitamin D, 25-hydrox y, total, serum 2017 018 [facility], [address] [place] [address], [address], 8 10:13:30 T4, free, serum 2017 018 [facility], [address] [place] [address], [address], 8 14:06:26 TSH, serum or plasma 2017 018 [facility], [address] [place] [address], [address], 8 14:23:17 renal function panel, serum 2017 018 [facility], [address] [place] [address], [address], 8 10:39:03 PTH (parathyr oid hormone), intact, serum or plasma 2017 018 [facility], [address] [place] [address], [address], 8 14:06:27 vitamin D, 25-hydrox y, total, serum 2017 018 [facility], [address] [place] [address], [address], 8 14:06:28 T4, free, serum 2016 017 [facility], [address] [place] [address], [address], 7 13:38:52 TSH, serum or plasma 2016 017 [facility], [address] [place] [address], [address], 7 13:42:20 T4, free, serum 2016 018 [facility], [address] [place] [address], [address], 8 14:09:52 TSH, serum or plasma 2016 018 [facility], [address] [place] [address], [address], 8 14:24:24 renal function panel, serum 2016 017 [facility], [address] [place] [address], [address], 7 15:39:28 PTH (parathyr oid hormone), intact, serum or plasma 2016 017 [facility], [address] [place] [address], [address], 7 10:56:17 vitamin D, 25-hydrox y, total, serum 2016 017 [facility], [address] [place] [address], [address], 7 13:38:53 vitamin D, 25-hydrox y, total, serum 2016 018 [facility], [address] [place] [address], [address], 8 14:09:53 renal function panel, serum 2016 018 [facility], [address] [place] [address], [address], 8 15:39:14 PTH (parathyr oid hormone), intact, serum or plasma 2016 018 [facility], [address] [place] [address], [address], 8 14:09:53 Referral None recorded. Procedures None recorded. Surgeries None recorded. Imaging US, thyroid - please call patient to schedule on Tuesday AM. 2019 020 [facility] (Imaging), [address] [place], [address], 0 18:55:24 Medication Orders Vitamin D2 1,250 mcg (50,000 unit) capsule 2017 018 [id number], [address], [place], [id number], 0 14:44:16 Vitamin D2 1,250 mcg (50,000 unit) capsule 2017 018 [email or web address] #[id number], [address], [place], [id number], 0 14:44:16 Patient TargetsNo targets recorded. Patient Instructions Encounter Date Encounter Id Patient Instructions Last Modified By Organization Details Last Modified Time 05/04/2017 [id number] - Get labs done every 3 months. [email or web address] Not available 05/04/2017 17:19:20 6 months [email or web address] Not available 1 17:05:41 10/21/2017 [id number] - Get labs done every 3 months. - Take vitamin D one capsule every week. [email or web address] Not available 10/21/2017 10:28:45 6 months [email or web address] Not available 0 10/21/2017 10:11:45 04/25/2018 [id number] - Get labs done every 6 months. - Take vitamin D one capsule every week. [email or web address] Not available 04/25/2018 11:48:07 6 months sstuartchipkin Not available 1 11:32:36 06/09/2020 [id number] - Get labs done now and every 6 months. [email or web address] Not available 06/09/2020 15:21:18 Will need f/u to review labs and u/s study. Any 20 minute slot in 4-6 weeks? [email or web address] Not available 06/09/2020 15:22:53 07/14/2020 [id number] - Get labs done now and every 6 months. [email or web address] Not available 07/14/2020 15:43:52 one year 20 minutes [email or web address] Not available 07/16/2020 09:33:59 Reason for Referral None Reported. Results Created Date Observation Date Name Description Value Unit Range Abnormal Flag Note LastModifiedBy Organization Detail LastModifiedTime 05/16/20 17 05/16/2017 T4, free, serum free T4 0.63 NG/dL 0.75-1 .54 low Not Available [address], [address], 05/16/2017 13:38:52 05/16/20 17 05/16/2017 vitam in [...] er than 30 ng/mL . Not Available [address], [address], 05/16/2017 13:38:52 05/16/20 17 05/16/2017 TSH, serum or plasm a TSH 3.11 uIU/m L 0.50-6 .00 The Ameri can Colle ge of Endoc rinol ogy and Ameri can Thyro id Assoc iatio n recom mend goal TSH value s betwe en 0.4-4 .0 mIU/m L. Not Available [address], [address], 05/16/2017 13:42:19 05/16/20 17 05/16/2017 renal funct ion panel , serum glucose 93 mg/dL 70-100 Not Available [address], [address], 05/16/2017 15:39:28 05/16/20 17 05/16/2017 renal funct ion panel , serum BUN 14 mg/dL 7-18 Not Available [address], [address], 05/16/2017 15:39:28 05/16/20 17 05/16/2017 renal funct ion panel , serum creatinine 0.8 mg/dL 0.8-1. 3 Not Available [address], [address], 05/16/2017 15:39:28 05/16/20 17 05/16/2017 renal funct ion panel , serum B/C 17.5 ratio Not Available [address], [address], 05/16/2017 15:39:28 05/16/20 17 05/16/2017 renal funct ion panel , serum GFR -non 83.7 mL/mi n Recom zak d GFR by the Natio nal Kidne y Found ation >60 mL/mi n/1.7 3m2 - Giulia l <60 mL/mi n/1.7 3m2 - Chron ic Kidne y Disea se <15 mL/mi n/1.7 3m2 - Kidne y Failu re Not Available [address], [address], 05/16/2017 15:39:28 05/16/20 17 05/16/2017 renal funct ion panel , serum GFR - if 96.3 mL/mi n For Afric an Ameri can patie nts: Resul ts Multi plied by 1.21 Not Available [address], [address], 05/16/2017 15:39:28 05/16/20 17 05/16/2017 renal funct ion panel , serum sodium 142 mmol/ L 136-14 5 Not Available [address], [address], 05/16/2017 15:39:28 05/16/20 17 05/16/2017 renal funct ion panel , serum potassium 4.4 mmol/ L 3.5-5. 1 Not Available [address], [address], 05/16/2017 15:39:28 05/16/20 17 05/16/2017 renal funct ion panel , serum chloride 103 mmol/ L 96-107 Not Available [address], [address], 05/16/2017 15:39:28 05/16/20 17 05/16/2017 renal funct ion panel , serum anion gap 10.8 5.0-15 .0 Not Available [address], [address], 05/16/2017 15:39:28 05/16/20 17 05/16/2017 renal funct ion panel , serum CO2 28 mmol/ L 21-32 Not Available [address], [address], 05/16/2017 15:39:28 05/16/20 17 05/16/2017 renal funct ion panel , serum calcium 9.6 mg/dL 8.5-10 .3 Not Available [address], [address], 05/16/2017 15:39:28 05/16/20 17 05/16/2017 renal funct ion panel , serum albumin 3.9 g/dL 3.4-5. 0 Not Available [address], [address], 05/16/2017 15:39:28 05/16/20 17 05/16/2017 renal funct ion panel , serum phosphorous 3.60 mg/dL 2.50-4 .90 Not Available [address], [address], 05/16/2017 15:39:28 05/16/20 17 05/17/2017 PTH (para thyro id hormo ne), intac t, serum or plasm a PTH intact 31.5 pg/mL 9.6-66 .3 Not Available [address], [address], 05/17/2017 10:56:16 08/17/19 18 08/17/2017 T4, free, serum free T4 0.68 NG/dL 0.75-1 .54 low Not Available [address], [address], 08/17/2017 14:09:52 08/17/19 18 08/17/2017 PTH (para thyro id hormo ne), intac t, serum or plasm a PTH intact 65.0 pg/mL 9.6-66 .3 Not Available [address], [address], 08/17/2017 14:09:52 08/17/19 18 08/17/2017 vitam in [...] er than 30 ng/mL . Not Available [address], [address], 08/17/2017 14:09:53 08/17/19 18 08/17/2017 TSH, serum or plasm a TSH 4.10 uIU/m L 0.50-6 .00 The Ameri can Colle ge of Endoc rinol ogy and Ameri can Thyro id Assoc iatio n recom mend goal TSH value s betwe en 0.4-4 .0 mIU/m L. Not Available [address], [address], 08/17/2017 14:24:23 08/17/19 18 08/17/2017 renal funct ion panel , serum glucose 102 mg/dL 70-100 high Not Available [address], [address], 08/17/2017 15:39:12 08/17/19 18 08/17/2017 renal funct ion panel , serum BUN 18 mg/dL 7-18 Not Available [address], [address], 08/17/2017 15:39:12 08/17/19 18 08/17/2017 renal funct ion panel , serum creatinine 0.9 mg/dL 0.8-1. 3 Not Available [address], [address], 08/17/2017 15:39:12 08/17/19 18 08/17/2017 renal funct ion panel , serum B/C 20.0 ratio Not Available [address], [address], 08/17/2017 15:39:12 08/17/19 18 08/17/2017 renal funct ion panel , serum GFR -non 73.1 mL/mi n Recom zak d GFR by the Natio nal Kidne y Found ation >60 mL/mi n/1.7 3m2 - Giulia l <60 mL/mi n/1.7 3m2 - Chron ic Kidne y Disea se <15 mL/mi n/1.7 3m2 - Kidne y Failu re Not Available [address], [address], 08/17/2017 15:39:12 08/17/19 18 08/17/2017 renal funct ion panel , serum GFR - if 84.0 mL/mi n For Afric an Ameri can patie nts: Resul ts Multi plied by 1.21 Not Available [address], [address], 08/17/2017 15:39:12 08/17/19 18 08/17/2017 renal funct ion panel , serum sodium 143 mmol/ L 136-14 5 Not Available [address], [address], 08/17/2017 15:39:12 08/17/19 18 08/17/2017 renal funct ion panel , serum potassium 3.9 mmol/ L 3.5-5. 1 Not Available [address], 6[address], 08/17/2017 15:39:12 08/17/19 18 08/17/2017 renal funct ion panel , serum chloride 105 mmol/ L 96-107 Not Available [address], 28666, 08/17/2017 15:39:12 08/17/19 18 08/17/2017 renal funct ion panel , serum anion gap 10.6 5.0-15 .0 Not Available [address], [address]93, 08/17/2017 15:39:12 08/17/19 18 08/17/2017 renal funct ion panel , serum CO2 27 mmol/ L 21-32 Not Available [address], [address], 08/17/2017 15:39:12 08/17/19 18 08/17/2017 renal funct ion panel , serum calcium 9.7 mg/dL 8.5-10 .3 Not Available [address], [address]66, 08/17/2017 15:39:12 08/17/19 18 08/17/2017 renal funct ion panel , serum albumin 4.2 g/dL 3.4-5. 0 Not Available [address], 99137, 08/17/2017 15:39:12 08/17/19 18 08/17/2017 renal funct ion panel , serum phosphorous 3.00 mg/dL 2.50-4 .90 Not Available [address], 7[address]98, 08/17/2017 15:39:12 10/22/19 18 10/24/2017 renal funct ion panel , serum glucose 98 mg/dL 70-100 Not Available [address], 18855, 10/24/2017 10:39:00 10/22/19 18 10/24/2017 renal funct ion panel , serum BUN 16 mg/dL 7-18 Not Available [address], 01432, 10/24/2017 10:39:00 10/22/19 18 10/24/2017 renal funct ion panel , serum creatinine 0.9 mg/dL 0.8-1. 3 Not Available [address], 9[address]15, 10/24/2017 10:39:00 10/22/19 18 10/24/2017 renal funct ion panel , serum B/C 17.8 ratio Not Available [address], [address]94, 10/24/2017 10:39:00 10/22/19 18 10/24/2017 renal funct ion panel , serum GFR -non 73.1 mL/mi n Recom zak d GFR by the Natio nal Kidne y Found ation >60 mL/mi n/1.7 3m2 - Giulia l <60 mL/mi n/1.7 3m2 - Chron ic Kidne y Disea se <15 mL/mi n/1.7 3m2 - Kidne y Failu re Not Available [address], 26972, 10/24/2017 10:39:00 10/22/19 18 10/24/2017 renal funct ion panel , serum GFR - if 84.0 mL/mi n For Afric an Amdelmy can patie nts: Resul ts Multi plied by 1.21 Not Available [address], [address], 10/24/2017 10:39:00 10/22/19 18 10/24/2017 renal funct ion panel , serum sodium 147 mmol/ L 136-14 5 high SUBHASH=V erifi ed by Greg lind Not Available [address], [address]64, 10/24/2017 10:39:00 10/22/19 18 10/24/2017 renal funct ion panel , serum potassium 4.2 mmol/ L 3.5-5. 1 Not Available [address], [address]15, 10/24/2017 10:39:00 10/22/19 18 10/24/2017 renal funct ion panel , serum chloride 106 mmol/ L 96-107 Not Available [address], [address]32[address], 10/24/2017 10:39:00 10/22/19 18 10/24/2017 renal funct ion panel , serum anion gap 10.3 5.0-15 .0 Not Available [address], 6[address]20, 10/24/2017 10:39:00 10/22/19 18 10/24/2017 renal funct ion panel , serum CO2 31 mmol/ L 21-32 Not Available [address], 6[address]78, 10/24/2017 10:39:00 10/22/19 18 10/24/2017 renal funct ion panel , serum calcium 9.1 mg/dL 8.5-10 .3 Not Available [address], [address], 10/24/2017 10:39:00 10/22/19 18 10/24/2017 renal funct ion panel , serum albumin 4.2 g/dL 3.4-5. 0 Not Available [address], [address], 10/24/2017 10:39:00 10/22/19 18 10/24/2017 renal funct ion panel , serum phosphorous 3.90 mg/dL 2.50-4 .90 Not Available [address], 9[address], 10/24/2017 10:39:00 10/22/19 18 10/24/2017 T4, free, serum free T4 0.75 NG/dL 0.75-1 .54 Not Available [address], [address]959, 10/24/2017 14:06:26 10/22/19 18 10/24/2017 PTH (para thyro id hormo ne), intac t, serum or plasm a PTH intact 35.5 pg/mL 9.6-66 .3 Not Available [address], [address], 10/24/2017 14:06:27 10/22/19 18 10/24/2017 vitam in [...] er than 30 ng/mL . Not Available [address], [address], 10/24/2017 14:06:27 10/22/19 18 10/24/2017 TSH, serum or plasm a TSH 2.77 uIU/m L 0.50-6 .00 The Ameri can Colle ge of Endoc rinol ogy and Ameri can Thyro id Assoc iatio n recom mend goal TSH value s betwe en 0.4-4 .0 mIU/m L. Not Available [address], [address], 10/24/2017 14:23:16 04/25/20 18 04/26/2018 renal funct ion panel , serum glucose 127 mg/dL 70-100 high LIPG= Speci men Marke dly Lipem ic. Chem Resul ts may be effec naresh. Not Available [address], [address], 04/26/2018 09:52:19 04/25/20 18 04/26/2018 renal funct ion panel , serum BUN 12 mg/dL 7-18 Not Available [address], 100[address], 04/26/2018 09:52:19 04/25/20 18 04/26/2018 renal funct ion panel , serum creatinine 0.9 mg/dL 0.8-1. 3 Not Available [address], [address]61, 04/26/2018 09:52:19 04/25/20 18 04/26/2018 renal funct ion panel , serum B/C 13.3 ratio Not Available [address], [address], 04/26/2018 09:52:19 04/25/20 18 04/26/2018 renal funct ion panel , serum GFR -non 72.8 mL/mi n Recom zak d GFR by the Natio nal Kidne y Found ation >60 mL/mi n/1.7 3m2 - Giulia l <60 mL/mi n/1.7 3m2 - Chron ic Kidne y Disea se <15 mL/mi n/1.7 3m2 - Kidne y Failu re Not Available [address], [address], 04/26/2018 09:52:19 04/25/20 18 04/26/2018 renal funct ion panel , serum GFR - if 83.7 mL/mi n For Afric an Ameri can patie nts: Resul ts Multi plied by 1.21 Not Available [address], [address]44, 04/26/2018 09:52:19 04/25/20 18 04/26/2018 renal funct ion panel , serum sodium 145 mmol/ L 136-14 5 Not Available [address], [address], 04/26/2018 09:52:19 04/25/20 18 04/26/2018 renal funct ion panel , serum potassium 4.3 mmol/ L 3.5-5. 1 Not Available [address], [address], 04/26/2018 09:52:19 04/25/20 18 04/26/2018 renal funct ion panel , serum chloride 105 mmol/ L 96-107 Not Available [address], 8[address], 04/26/2018 09:52:19 04/25/20 18 04/26/2018 renal funct ion panel , serum anion gap 10.3 5.0-15 .0 Not Available [address], [address], 04/26/2018 09:52:19 04/25/20 18 04/26/2018 renal funct ion panel , serum CO2 30 mmol/ L 21-32 Not Available [address], 6[address], 04/26/2018 09:52:19 04/25/20 18 04/26/2018 renal funct ion panel , serum calcium 8.8 mg/dL 8.5-10 .3 Not Available [address], [address], 04/26/2018 09:52:19 04/25/20 18 04/26/2018 renal funct ion panel , serum albumin 3.9 g/dL 3.4-5. 0 Not Available [address], [address], 04/26/2018 09:52:19 04/25/20 18 04/26/2018 renal funct ion panel , serum phosphorous 3.50 mg/dL 2.50-4 .90 Not Available [address], [address], 04/26/2018 09:52:19 04/25/20 18 04/26/2018 T4, free, serum free T4 0.72 NG/dL 0.75-1 .54 low Not Available [address], [address], 04/26/2018 10:13:26 04/25/20 18 04/26/2018 PTH (para thyro id hormo ne), intac t, serum or plasm a PTH intact 76.7 pg/mL 9.6-66 .3 high Not Available [address], [address], 04/26/2018 10:13:29 04/25/20 18 04/26/2018 vitam in [...] er than 30 ng/mL . Not Available [address], [address], 04/26/2018 10:13:30 04/25/20 18 04/26/2018 TSH, serum or plasm a TSH 1.91 uIU/m L 0.50-6 .00 The Ameri can Colle ge of Endoc rinol ogy and Ameri can Thyro id Assoc iatio n recom mend goal TSH value s betwe en 0.4-4 .0 mIU/m L. Not Available [address], [address], 04/26/2018 10:24:18 06/17/20 20 06/17/2020 US, thyro [...] Readin g Physic tung: Jacob wakefield [email or web address] [address], [place], [address], 07/14/2020 15:42:07 Result Notes None recorded. Problems Name Problem SNOMED Code Status Onset Date Resolution Date Notes Provider Name and Address Organization Details Recorded Time Hyperparathyro idism 50889059 [place], [address], [facility] 6 14:23:16 Hypercholester olemia 94316087 Active Frida Noble LPN null, [facility] 6 09:45:14 Hypercalcemia 06823345 [place], [address], [facility] 6 14:23:16 Multinodular goiter 474532864 [place], [address], [facility] 6 15:43:53 Neoplasm of thyroid gland 176689374 Michael Lewis MD [facility] [place], [address], [facility] 6 15:43:53 Problem Notes None recorded. Procedures Surgical History Date Name Laterality Status Provider Name and Address Organization Details Recorded Time 8 POC Urinalysis Testing completed Jacob Lewis MD [facility] [place], [address], [facility] 04/25/2018 11:32:35 8 POC Urinalysis Testing [place], [address], [facility] 10/21/2017 10:11:45 7 POC Urinalysis Testing [place], [address], [facility] 05/04/2017 17:05:41 7 POC Urinalysis Testing completed Jacob Lewis MD [facility] [place], [address], [facility] 10/21/2016 15:03:39 6 POC Urinalysis Testing completed Frida Noble LPN [facility] 03/19/2016 14:23:02 Imaging Results Imaging Date Name Status LastModified by Organiz ation Details LastModified Time 06/17/2020 [email or web address] [address] , [place], [address], 07/14/2020 15:42:07 Procedure Notes None recorded. Medical [...] Updated DateTime 7 164.465 cm 32.2 kg/m2 75589.7 4 g 66 /min 124 mm[Hg] 82 mm[Hg] Frida Noble LPN [facility] 7 16:48:33 Date Recorded Body height Body mass index (BMI) Body weight Heart rate Systolic blood pressure Diastolic blood pressure Provider Name and Address Organization Details Last Updated DateTime 8 165.1 cm 33.3 kg/m2 69443.9 1 g 76 /min 132 mm[Hg] 76 mm[Hg] Frida Noble LPN [facility] 8 09:42:20 Date Recorded Body height Body mass index (BMI) Body weight Heart rate Systolic blood pressure Diastolic blood pressure Provider Name and Address Organization Details Last Updated DateTime 8 165.1 cm 33.7 kg/m2 15745.1 g 94 /min 124 mm[Hg] 86 mm[Hg] Ana Menard SEMICONDUCTOR EQUIPMENT TECHNICIAN [address] [place] [address], [address] [place] [address] 8 11:16:32 Social History Question Answer Notes LastModified by Organizat ion Details LastModified Time Tobacco Smoking Status Never Smoker Frida Noble LPN [facility] 10/15/2015 13:10:54 What Is Your Level Of [...] murmur. Grandchildren- 2 and 1 coming (in [place]). Healthy No changes. 05/03- Kids OK (37 and 33). Grandkids (3)- youngest had surgery for hole in heart. 11/02- Kids OK (son going to [place] from [place]). Grandkids. 05/04- Family OK. Son in [place] ([place]). Grandkids in [place] but heading to [place] ([place]). Granddaughter will come to [place]. 06/06: Son doing OK (bought house and expecting new baby). Other son lives in [place]. Medical History No medical history recorded. Gynecological HistoryNo gynecological history recorded. Obstetrics History GPAL:G 0 P 0 0 0 0 Past Encounters Encounter ID Performer Location Encounter Start Date Encounter Closed Date Diagnosis/Indication Diagnosis SNOMED-CT Code Diagnosis ICD10 Code Diagnosis Note [id number] Jacob Lewis MD [facility], [address] [address] 10/15/2015 12:24:38 10/15/2015 14:24:34 Hypercalcemia 84514349 E83.52 Per records from [place] and also local. Need to find out what ULN was in labs to see if this is significan t She does not appear to have significan t sx from hypercalce grecia- this may be able to be monitored Hyperparathyroidism 6499 9008 E21.3 Likely etiology of hypercalce grecia. Evaluate U/S- if parathyroi d nodule identifiab le, could bx and check for PTH. Multinodular goiter 2477 80689 E04.9 Previous u/s in [place] suggested nodule on left over 2 cm. More recent suggests smaller but still around 1.4 cm. Update u/s with plan to do biopsy of left nodule and possibly parathyroi d nodule if visualized . 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 Has been on TUMS now at 1 pill per day.Check Renal panel to make sure calcium is OK>If it is, can stop taking TUMS. 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 Dysuria 58125413 R30.0 checked U/A which showed: positive blood , trace leuk, 2+ proteinWil l give 3 day course of bactrim. request C&S with cc to PCP.NKDA [id number] Jacob Lewis MD [facility], [address] [address] 10/21/2016 14:43:41 10/21/2016 15:53:05 Hyperparathyroidism 93036085 E21.3 Parathyroi d adenoma (left) removed (2015). Had taken 12 weeks of vitamin D to replace - level was down to 13.9 in 03/2016. See if she is fully replaced. 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 (in fact better at 1.67 than previous of 3.). [id number] Jacob Lewis MD [facility], [address] [address] 05/04/2017 16:33:39 05/04/2017 17:21:16 Hyperparathyroidism 54158005 E21.3 Parathyroi d adenoma (left) removed (2015). Vit D had been down to 13.9 in 03/2016 but up to 30.3 after replacemen t in 10/2016.Las t PTH was 46.8 in 11/01. Update labs. 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 (in fact better at 1.67 than previous of .).Not on T4. [id number] Jacob Lewis MD Endocr[facility], [address] [address] [id number] 10/21/2017 09:32:21 10/21/2017 10:33:57 Hyperparathyroidism [id number] E21.3 Parathyroi d adenoma (left) removed (2015).PTH 65 in 08/04- but vitamin D is low.Try and replace vitamin D. Vit D has been down (13.9 in 03/2016) but up to 30.3 after replacemen t in 10/2016. 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 Vitamin D deficiency 347 45878 E55.9 Low value of 18.7 from 08/17/17.Re place and monitor labs. Has had high PTH of 65 despite having adenoma rmoved in past. [id number] Jacob Lewis MD Endocrino logy, [address] [address] 04/25/2018 10:56:02 04/25/2018 11:51:47 Hyperparathyroidism [id number] E21.3 Parathyroi d adenoma (left) removed (2015).PTH 65 in 08/04- but vitamin D is low.Try and replace vitamin D. Vit D has been down (13.9 in 03/2016) but up to 30.3 after replacemen t in 10/2016. 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 Labs every 6 months Vitamin D deficiency 347 30028 E55.9 Barely over 20 in 2018 adn PTH better. Low value of 18.7 from 08/17/17. Had high PTH of 65 despite having adenoma removed in past. Monitor labs. [id number] Jacob Lewis MD Endocrino logy, [address] [address] 06/09/2020 14:15:09 06/10/2020 07:20:43 Hyperparathyroidism [id number] E21.3 Update labs. Hx of Parathyroi d [...] decide on replacemen t. 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 Labs every 6 months Vitamin D deficiency 347 81632 E55.9 Barely over 20 in 2018 adn PTH better. Low value of 18.7 from 08/17/17. Had high PTH of 65 despite having adenoma removed in past. Monitor labs. Feeling of lump in throat [id number] F45.8 Check thyroid ultrasound [id number] Jacob Lewis MD Endocrino logy, [address] [address] 07/14/2020 14:07:02 07/16/2020 09:34:31 Unilateral thyroid lobectomy [id number] Z90.89 s/p left hemithyroi dectomy for hyperparat [...] in 07/06- Natalie) Vitamin D deficiency 347 09500 E55.9 Vitamin D= 21.8 (06/06); was 22.7 (05/04); was 20.2 (11/02); was 18.7 (08/04); PTH= 34 (06/06); was 76.7 (05/04); was 35.5 (11/02); was 65 (08/04); Had high PTH despite having adenoma removed in past. Would like to see her vitamin D closer to 30. Monitor labs (ordered earlier 07/06). Feeling of lump in throat [id number] F45.8 Checked thyroid ultrasound and no nodules on right (s/p left yoon). Health Concerns Section Related Observation LastModified by Organization Detai ls LastModified Time None Recorded Concern Status LastModified by Organization Details LastModified Time None Recorded Advance Directives Directive None Recorded Payers Encounter Date Sequence Insurance Name Policy Number Policy Beltran Covered Member ID Beltran Member ID Guarantor Name 05/04/2017 1 [facility] [id number] Dorothy Rizo [id number] Dorothy Rizo 10/21/2017 1 [facility] TYPE II (HMO) [id number] Dorothy Rizo [id number] Dorothy Rizo 04/25/2018 1 [facility] TYPE II (HMO) [id number] Dorothy Rizo [id number] Dorothy Rizo 04/25/2018 1 [facility] [id number] Dorothy Rizo [id number] Dorothy Rizo 06/09/2020 1 [facility] [id number] Dorothy Rzio [id number] Dorothy Rizo 07/14/2020 1 [facility] [id number] Dorothy Rizo [id number] Dorothy Rizo Notes Date Note Type Note Provider Name and Address Organization Details Recorded Time 05/04/2017 text/html ThyroidReported bypatient.Previous Evaluation:Previous biopsies (date, cytology): (11/30 - Hurthle cells); TSH: (1.67 (10/01)); free T4: (0.79 (10/01)); Hemithyroidectomy 02/2016 ([facility]) Treatment:, dose: mcg (NO THYROID MEDS) Constitutional:no [...] staying asleep)Notes:PCP is now Les (works with [employer]) Had left hemithyroidectomy with hope that PTH problem (previous dx) was on left.Ended up with left yoon-thyroidectomy. Originally told of PTH problem in [place]- had high calcium in blood. Told she [...] mouth, fingers or toes. Jacob Lewis MD [address] [place] [address], [phone], [facility] 05/05/2017 09:34:39 10/21/2017 text/html ThyroidReported bypatient.Previous Evaluation:Previous biopsies (date, cytology): (11/30 - Hurthle cells); TSH: (4.1 (08/03); was 3.1 ; was 1.67 (10/01)); free T4: (0.68 (08/04); was 0. 63; was 0.79 (10/01)); Hemithyroidectomy 02/2016 ([facility]) Treatment:, dose: mcg (NO THYROID MEDS) Constitutional:no [...] yoon-thyroidectomy. Originally told of PTH problem in [place]- had high calcium in blood. Told she could take calcium but don't take vitamin D. Also had BMD in [place]- told it was OK. No gastritis sx. [...] Occ cramping in fingers Jacob Lewis MD [address] [place] [address], [phone], [facility] 10/21/2017 10:30:26 04/25/2018 text/html ThyroidReported bypatient.Previous Evaluation:Previous biopsies (date, cytology): (11/30 - Hurthle cells); TSH: (2.77 (11/02); was 4.1 (08/03); was 3.1 ; was 1.67 (10/01)); free T4: (0.75 (11/02); was 0.68 (08/04); was 0. 63; was 0.79 (10/01)); [facility] Treatment:, dose: mcg (NO THYROID MEDS) Constitutional:no cold intolerance (Generally runs cold.); no heat intolerance (Doesn't like the heat.); no weight loss;weight gain(2# up since last time); Feels very tired. Eyes:no double vision; no dry eyes Neck:no difficulty swallowing (sometimes has to take time to swallow.); no voice changes; no masses; Occ feels need to cough- no pain. [place] thread across neck- like a fishbone. Went to ENT in [place]. Told it was OK. Takes time to [...] yoon-thyroidectomy. Originally told of PTH problem in [place]- had high calcium in blood. Told she could take calcium but don't take vitamin D. Also had BMD in [place]- told it was OK. No gastritis sx. [...] fingersNo bruises or rashes. Jacob Lewis MD [address] [place] [address], [phone], [facility] 04/25/2018 11:50:13 06/09/2020 text/html ThyroidReported bypatient.Previous Evaluation:Previous biopsies (date, cytology): (11/30 - Hurthle cells); TSH: (2.77 (11/02); was 4.1 (08/03); was 3.1 ; was 1.67 (10/01)); free T4: (0.75 (11/02); was 0.68 (08/04); was 0. 63; was 0.79 (10/01)); Hemithyroidectomy 02/2016 ([facility]) Treatment:, dose: mcg (NO THYROID MEDS) [...] like a fishbone. Went to ENT in [place]. Told it was OK. Takes time to swallow. Currently feels it is a light thread Heart:no rapid heart rate; no palpitations; no chest pain; no tightness or pressure; Occ hard beating- lasts very briefly quickly by . GI:no diarrhea;constipation; Needs to have more water with [place]/lemon juice. Sometimes smaller pieces Neurological:no tremor; no [...] yoon-thyroidectomy. Originally told of PTH problem in [place]- had high calcium in blood. Told she could take calcium but don't take vitamin D.06/06: Not taking weekly vitamin D. Also had BMD in [place]- told it was OK. No gastritis sx. [...] was notified that the provider location is [facility] Patient location: home During the visit the [...] or itching or rashes. Jacob Lewis MD [address] [place] [address], [phone], [facility] 06/09/2020 15:23:42 07/14/2020 text/html ThyroidReported bypatient.Previous Evaluation:Previous biopsies (date, cytology): (11/30 - Hurthle cells); TSH: (1.66 (06/06); was 2.77 (11/02); was 4.1 (08/03); was 3.1 ; was 1.67 (10/01)); free T4: (0.75 (06/06) was 0.72 (11/02); was 0.68 (08/04); was 0. 63; was 0.79 (10/01)); Hemithyroidectomy 02/2016 ([facility]) Treatment:, dose: mcg (NO THYROID [...] neck- like a fishbone.Went to ENT in [place]. Told it was OK. Takes time to [...] stones. Originally told of [place]TH problem in [place]- had high calcium in blood. Told she could take calcium but don't take vitamin D. Reportedly had BMD in [place]- told it was OK. Hasn't wanted to take vitamin D with calcium given hx of Staghorn stone. PTH= 34 (06/06);Vitamin D= 21.8 (06/06); Did laser on stones earlier 2019. Takes lemon water to help with stones. Also told of high cholesterol in past. On atorva (40 mg) - sometimes, not all the time. 2-3x per week. PCP: Alissa Ashley ([place])Hx: Staghorn stones (Hasn't had f/u). Patient agreed to this visit via phone due to the COVID -19 pandemic. Patient understands this is a scheduled visit and the usual procedures with regard to billing and confidentiality apply. Patient was notified that the provider location is [facility] Patient location: home During the visit the [...] or itching or rashes. Jacob Lewis MD [address] [place] [address], [phone], [facility] 07/16/2020 09:34:28 OBGyn Episode No OBEpisode recorded.
--- OUTSIDE RECORDS SUMMARY | 2024-09-26 10:06 | XMS_ITS | Encounter Summary ---
Author Organization [employer] Address [address] [facility] [address] [place] [address] Care Team Providers Care Hotel Operations Manager Name Role Phone Unavailable Primary Care Provider Unavailabl e Reason for Visit * Reason Onset Date Comments rs no show 05/03/2024 Encounter Details Date Type Department Care Team (Late st Contact Info) Description 05/03/2024 Telephone [facility] [address] [place] [address] Alayna Shahid DMD rs no show Social [...]
--- OUTSIDE RECORDS SUMMARY | 2024-09-26 10:06 | XMS_ITS | Encounter Summary ---
Author Organization [employer] Address [address] [facility] [address] [place] [address] Care Team Providers Care Surgical Lead Name Role Phone Unavailable Primary Care Provider Unavailabl e Encounter Details Date Type Department Care Team (Latest Contact Info) Description 02/19/2022 Abstract [facility] CONVERSIONS Dental, Provider, DDS Social History [...]
--- OUTSIDE RECORDS SUMMARY | 2024-09-26 10:06 | XMS_ITS | Encounter Summary ---
Author Organization [employer] Address [address] [facility] [address] [place] [address] Care Team Providers Care Shipbuilding Draftsperson Name Role Phone Unavailable Primary Care Provider Unavailabl e Encounter Details Date Type Department Care Team (Latest Contact Info) Description 07/16/2019 Abstract [facility] CONVERSIONS Dental, Provider, DDS Social History [...]
== END 2024-09-26 10:47 | disposition home or self-care (01) ==
PROVIDERS: PCP Internal Medicine; Visit Provider Physician Assistant
DX: M25.561 Pain in right knee (principal)

== ENCOUNTER 2024-09-26 09:50 | Outpatient (REF) | payer OTHER, SELFPAY ==
--- NOTE | ~2024-09-26 | XR_ITS ---
EXAMINATION: XR KNEE 3 VIEWS RIGHT HISTORY: M25.569 - Pain in unspecified knee COMPARISON: Comparison is made with the prior examination dated 09/07/2024. FINDINGS: Three views of the right knee are submitted. Osseous mineralization is normal. There is no fracture or dislocation. There is moderate osteoarthritis of the medial compartment, with joint space narrowing and osteophyte formation. The soft tissues are unremarkable. There is no joint effusion. XR/XR knee RT 3V IMPRESSION: Moderate osteoarthritis of the medial compartment. Electronically signed by: Amrik Miguel MD 09/26/2024 11:22 AM EDT
--- OUTSIDE RECORDS SUMMARY | 2024-09-26 10:57 | XMS_ITS | Encounter Summary ---
Author Organization [employer] Address [address] [facility] [address] [place] [address] Care Team Providers Care Oyster Shipper Name Role Phone Unavailable Primary Care Provider Unavailabl e Reason for Visit * Reason Onset Date Comments rs no show 05/03/2024 Encounter Details Date Type Department Care Team (Late st Contact Info) Description 05/03/2024 Telephone [facility] [address] [place] [address] Alayna Shahid DMD rs no show Social [...]
--- OUTSIDE RECORDS SUMMARY | 2024-09-26 10:57 | XMS_ITS | Encounter Summary ---
Author Organization [employer] Address [address] [facility] [address] [place] [address] Care Team Providers Care Strategic Accounts Manager Name Role Phone Unavailable Primary Care Provider Unavailabl e Encounter Details Date Type Department Care Team (Latest Contact Info) Description 07/16/2019 Abstract [facility] CONVERSIONS Dental, Provider, DDS Social History [...]
--- OUTSIDE RECORDS SUMMARY | 2024-09-26 10:57 | XMS_ITS | Encounter Summary ---
Author Organization [employer] Address [address] [facility] [address] [place] [address] Care Team Providers Care Wood Carving Lathe Operator Name Role Phone Unavailable Primary Care Provider Unavailabl e Encounter Details Date Type Department Care Team (Latest Contact Info) Description 02/19/2022 Abstract [facility] CONVERSIONS Dental, Provider, DDS Social History [...]
--- OUTSIDE RECORDS SUMMARY | 2024-09-26 10:57 | XMS_ITS | Clinical Summary ---
Author Organization [employer] Address [address] [facility] [address] [place] [address] Care Team Providers Care Bail Attacher Name Role Phone Unavailable Primary Care Provider Unavailabl e Allergies No known active allergies Medications D3-50 1.25 MG (53410 UT) capsule Take 50,000 Units by mouth 1 (one) time per week. 09/26/2023 Active lisinopril 5 MG tablet Take 5 mg by mouth Once per day. 03/15/2024 Active Active Problems No known active problems Encounters Date Type Department Care Team Description 08/01/2024 10:00 AM EST Office Visit [facility] [address] [place] [address] Alayna Shahid DMD from Last 3 Months [...] Most Recently Relevant to Health Maintenance Insurance [facility]
--- OUTSIDE RECORDS SUMMARY | 2024-09-26 10:57 | XMS_ITS | Encounter Summary ---
Author Organization [employer] Address [address] [facility] [address] [place] [address] Care Team Providers Care Heel Slugger Name Role Phone Unavailable Primary Care Provider Unavailabl e Encounter Details Date Type Department Care Team ([facility] st Contact Info) Description 06/30/2023 Abstract [facility]ULT [facility] [address] [place] [address] Tomi Narvaez, DDS [address] [place] [address] Social History Tobacco Use Types Packs/Day Years [...]
== END 2024-09-26 09:51 | disposition home or self-care (01) ==
LOC: HO.HMGCX 09:50
PROVIDERS: Visit Provider Physician Assistant
DX: M25.561 Pain in right knee (principal)
CPT/HCPCS: 73562

== ENCOUNTER → 2024-09-26 09:55 | Outpatient (BNV) | payer OTHER, SELFPAY | PROVIDERS: Visit Provider Radiology Diagnostic Radiology | DX: M25.561 Pain in right knee (principal) | CPT/HCPCS: 73562 ==

== ENCOUNTER 2024-10-25 14:10 | Outpatient (AMB) | payer OTHER, SELFPAY ==
--- NOTE | 2024-10-25 14:12 | MHC.OFFVIS ---
Vital Signs 10/25/24 14:13 Height 5 ft 5 in Weight 215 lb BMI 35.8 Intake Visit Reasons: New Prob - Right Knee Pain Intake Note: Dorothy is a 63 year old female who presents today for a new problem visit with complaints of right knee pain. She was seen at the [facility] in September with complaints of knee pain s.p fall. She reports that she went to the mall in September and while walking when she stepped on ice cream or mustard and she fell to the ground. Since this fall she has had pain in the medial aspect of the knee and at the base of the knee. She is using lidocaine patches, icy hot, heat and cold compress and home remedies. Her pain increases by the end of the end of the day. She is taking Tylenol which only provides mild relief. She also mentions that she has had increased pain in the right hip and right shoulder since her fall Allergies No Known Allergies [No Known Allergies*] Allergy (Verified 09/26/24 09:36) HPI HPI New Prob - Right Knee Pain: Details: Evonne is a 63-year-old woman who was walking in the mall 6 weeks ago when she slipped on some ice cream or mustard . She fell on the front of her right knee and has had pain ever since. She also has medial-sided knee pain. Radiographs were unremarkable at the emergency department in some are taken more recently which were also notable for arthritis only. [facility] Medical History (Updated 10/25/24 @ 15:32 by Delmar Nicholson MD) History of uric acid staghorn calculus Obesity (BMI 30.0-34.9) Essential hypertension Vitamin D deficiency Epigastric pain Dyslipidemia Bursitis of right shoulder Nephrolithiasis Hyperuricosuria Surgical History (Updated 09/25/24 @ 00:16 by Irma Villalobos MD) History of thyroid surgery H/O lithotripsy Family History Father Asthma Mother Ovarian cancer Social History Housing: Apartment Patient Tobacco Use Status: Never used Tobacco e-Cigarette/Vaping Use: Never Used Second Hand Smoke Exposure: No service: No Current occupational status: employed 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 There is tenderness to palpation over the tibial tubercle and over the medial compartment. Stable to varus and valgus stress. Office Procedures Joint Inj/Aspir; Non-Pain Clin Joint Injection/Drain Details: Injected 1 mL of Decadron and 3 mL 1% lidocaine and 3 mL of 0.25% Marcaine. Site was prepped using aseptic technique. Patient tolerated the procedure well. Shoulders, Hips, Knees, Knee Large Joint Injection : Right Knee Coding Procedure code (CPT) selection complete Results Reviewed Results Reviewed: I personally reviewed relevant radiographs. Moderate osteoarthritis right knee Assessment & Plan Assessment & Plan (1) Localized osteoarthritis of right knee: Code(s): M17.11 - Unilateral primary osteoarthritis, right knee Category: Medical Plan: I injected her right knee today. I discussed that this may help with some of the arthritic pain she is having. She can return to see me in 3 months if this persists. (2) Contusion of right knee: Code(s): S80.01XA - Contusion of right knee, initial encounter Category: Medical Plan: Does appear that she is having some pain from the contusion on the tibial tubercle of the right knee. Radiographs were negative and exam is notable for mild tenderness only. Not sure the injection would benefit her with respect to this pain but she was given a knee sleeve and we explained the diagnosis. Coding Level of Care Code Est Pt Level 3 (72449) Complex EM visit Add On G2211 Diagnoses Localized osteoarthritis of right knee M17.11 Contusion of right knee S80.01XA CPT Codes Shoulders, Hips, Knees, - Knee Large Joint Injection : Right Knee ([id number])
[2024-10-25 14:13] VITALS: BMI 35.8
--- OUTSIDE RECORDS SUMMARY | 2024-10-25 16:57 | XMS_ITS | Encounter Summary ---
Author Organization [employer] Address [address] [facility] [address] [place] [address] Care Team Providers Care Restorative Art Embalmer Name Role Phone Unavailable Primary Care Provider Unavailabl e Encounter Details Date Type Department Care Team (Latest Contact Info) Description 07/16/2019 Abstract [facility] CONVERSIONS Dental, Provider, DDS Social History Tobacco [...]
--- OUTSIDE RECORDS SUMMARY | 2024-10-25 16:57 | XMS_ITS | Data Portability ---
Author Organization [facility], , [facility] Address [address] [place] [address] Care Team Providers Care Net Software Developer Name Role Phone SERGIO ASHLEY Primary Care Provider [phone] Assessment Encounter Date Assessment Date Assessment LastModified [...] hormone), intact, serum or plasma 2019 020 [facility] (Lab), [address] [place] [address], [id number], 1 16:18:45 vitamin D, 25-hydrox y, total, serum 2019 020 [facility] (Lab), [address] [place] [address], [address], 1 16:18:54 T4, free, serum 2019 020 [facility] (Lab), [address] [place], [address], 1 16:19:02 TSH, serum or plasma 2019 020 [facility] (Lab), [address] [place], [address], 1 16:19:10 T4, free, serum 2017 018 [facility], [address] [place] [address], [address], 8 10:13:28 TSH, serum or plasma 2017 018 [facility], [address] [place] [address], [address], 8 10:24:19 renal function panel, serum 2017 018 [facility], [address] [place] [address], [address], 8 09:52:21 PTH (parathyr oid hormone), intact, serum or plasma 2017 018 [facility], [address] [place] [address], [address], 8 10:13:29 vitamin D, 25-hydrox y, total, serum 2017 018 [facility], [address] [place] [address], 800[address], 8 10:13:30 T4, free, serum 2017 018 [facility], [address] [place] [address], [address], 8 14:06:26 TSH, serum or plasma 2017 018 [facility], [address] [place] [address], [address], 8 14:23:17 renal function panel, serum 2017 018 [facility], [address] [place] [address], [address], 8 10:39:03 PTH (parathyr oid hormone), intact, serum or plasma 2017 018 [facility], [address] [place] [address], [address], 8 14:06:27 vitamin D, 25-hydrox y, total, serum 2017 018 [facility], [address] [place] [address], [address], 8 14:06:28 T4, free, serum 2016 017 [facility], [address] [place] [address], [address], 7 13:38:52 TSH, serum or plasma 2016 017 [facility], [address] [place] [address], [address], 7 13:42:20 T4, free, serum 2016 018 [facility], [address] [place] [address], [address], 8 14:09:52 TSH, serum or plasma 2016 018 [facility], [address] [place] [address], [address], 8 14:24:24 renal function panel, serum 2016 017 [facility], [address] [place] [address], [address], 7 15:39:28 PTH (parathyr oid hormone), intact, serum or plasma 2016 017 [facility], [address] [place] [address], [address], 7 10:56:17 vitamin D, 25-hydrox y, total, serum 2016 017 [facility], [address] [place] [address], [address], 7 13:38:53 vitamin D, 25-hydrox y, total, serum 2016 018 [facility], [address] [place] [address], [address], 8 14:09:53 renal function panel, serum 2016 018 [facility], [address] [place] [address], [address], 8 15:39:14 PTH (parathyr oid hormone), intact, serum or plasma 2016 018 [facility], [address] [place] [address], [address], 8 14:09:53 Referral None recorded. Procedures None recorded. Surgeries None recorded. Imaging US, thyroid - please call patient to schedule on Tuesday AM. 2019 020 [facility] (Imaging), [address] [place], [address], 0 18:55:24 Medication Orders Vitamin D2 1,250 mcg (50,000 unit) capsule 2017 018 [email or web address] [id number], [address], [place], [id number], 0 14:44:16 Vitamin D2 1,250 mcg (50,000 unit) capsule 2017 018 [email or web address] [facility] #[id number], [address], [place], [id number], 0 14:44:16 Patient TargetsNo targets recorded. Patient Instructions Encounter Date Encounter Id Patient Instructions Last Modified By Organization Details Last Modified Time 05/04/2017 [id number] - Get labs done every 3 months. [email or web address] Not available 05/04/2017 17:19:20 6 months [email or web address] Not available 1 17:05:41 10/21/2017 [id number] - Get labs done every 3 months. - Take vitamin D one capsule every week. [email or web address] Not available 10/21/2017 10:28:45 6 months [email or web address] Not available 0 10/21/2017 10:11:45 04/25/2018 [id number] - Get labs done every 6 months. - Take vitamin D one capsule every week. [email or web address] Not available 04/25/2018 11:48:07 6 months [email or web address] Not available 1 11:32:36 06/09/2020 [id number] - Get labs done now and every 6 months. [email or web address] Not available 06/09/2020 15:21:18 Will need f/u to review labs and u/s study. Any 20 minute slot in 4-6 weeks? [email or web address] Not available 06/09/2020 15:22:53 07/14/2020 [id number] - Get labs done now and every 6 months. [email or web address] Not available 07/14/2020 15:43:52 one year 20 minutes [email or web address] Not available 07/16/2020 09:33:59 Reason for Referral None Reported. Results Created Date Observation Date Name Description Value Unit Range Abnormal Flag Note LastModifiedBy Organization Detail LastModifiedTime 05/16/20 17 05/16/2017 T4, free, serum free T4 0.63 NG/dL 0.75-1 .54 low Not Available [address], [address], 05/16/2017 13:38:52 05/16/20 17 05/16/2017 vitam in [...] er than 30 ng/mL . Not Available [address], [address], 05/16/2017 13:38:52 05/16/20 17 05/16/2017 TSH, serum or plasm a TSH 3.11 uIU/m L 0.50-6 .00 The Ameri can Colle ge of Endoc rinol ogy and Ameri can Thyro id Assoc iatio n recom mend goal TSH value s betwe en 0.4-4 .0 mIU/m L. Not Available [address], [address], 05/16/2017 13:42:19 05/16/20 17 05/16/2017 renal funct ion panel , serum glucose 93 mg/dL 70-100 Not Available [address], [address], 05/16/2017 15:39:28 05/16/20 17 05/16/2017 renal funct ion panel , serum BUN 14 mg/dL 7-18 Not Available [address], [address], 05/16/2017 15:39:28 05/16/20 17 05/16/2017 renal funct ion panel , serum creatinine 0.8 mg/dL 0.8-1. 3 Not Available [address], [address], 05/16/2017 15:39:28 05/16/20 17 05/16/2017 renal funct ion panel , serum B/C 17.5 ratio Not Available [address], [address], 05/16/2017 15:39:28 05/16/20 17 05/16/2017 renal funct ion panel , serum GFR -non 83.7 mL/mi n Recom zak d GFR by the Natio nal Kidne y Found ation >60 mL/mi n/1.7 3m2 - Giulia l <60 mL/mi n/1.7 3m2 - Chron ic Kidne y Disea se <15 mL/mi n/1.7 3m2 - Kidne y Failu re Not Available [address], [address], 05/16/2017 15:39:28 05/16/20 17 05/16/2017 renal funct ion panel , serum GFR - if 96.3 mL/mi n For Afric an Ameri can patie nts: Resul ts Multi plied by 1.21 Not Available [address], [address], 05/16/2017 15:39:28 05/16/20 17 05/16/2017 renal funct ion panel , serum sodium 142 mmol/ L 136-14 5 Not Available [address], [address], 05/16/2017 15:39:28 05/16/20 17 05/16/2017 renal funct ion panel , serum potassium 4.4 mmol/ L 3.5-5. 1 Not Available [address], [address], 05/16/2017 15:39:28 05/16/20 17 05/16/2017 renal funct ion panel , serum chloride 103 mmol/ L 96-107 Not Available [address], [address], 05/16/2017 15:39:28 05/16/20 17 05/16/2017 renal funct ion panel , serum anion gap 10.8 5.0-15 .0 Not Available [address], [address], 05/16/2017 15:39:28 05/16/20 17 05/16/2017 renal funct ion panel , serum CO2 28 mmol/ L 21-32 Not Available [address], [address], 05/16/2017 15:39:28 05/16/20 17 05/16/2017 renal funct ion panel , serum calcium 9.6 mg/dL 8.5-10 .3 Not Available [address], [address], 05/16/2017 15:39:28 05/16/20 17 05/16/2017 renal funct ion panel , serum albumin 3.9 g/dL 3.4-5. 0 Not Available [address], [address], 05/16/2017 15:39:28 05/16/20 17 05/16/2017 renal funct ion panel , serum phosphorous 3.60 mg/dL 2.50-4 .90 Not Available [address], [address], 05/16/2017 15:39:28 05/16/20 17 05/17/2017 PTH (para thyro id hormo ne), intac t, serum or plasm a PTH intact 31.5 pg/mL 9.6-66 .3 Not Available [address], [address], 05/17/2017 10:56:16 08/17/19 18 08/17/2017 T4, free, serum free T4 0.68 NG/dL 0.75-1 .54 low Not Available [address], [address], 08/17/2017 14:09:52 08/17/19 18 08/17/2017 PTH (para thyro id hormo ne), intac t, serum or plasm a PTH intact 65.0 pg/mL 9.6-66 .3 Not Available [address], [address], 08/17/2017 14:09:52 08/17/19 18 08/17/2017 vitam in [...] er than 30 ng/mL . Not Available [address], [address], 08/17/2017 14:09:53 08/17/19 18 08/17/2017 TSH, serum or plasm a TSH 4.10 uIU/m L 0.50-6 .00 The Ameri can Colle ge of Endoc rinol ogy and Ameri can Thyro id Assoc iatio n recom mend goal TSH value s betwe en 0.4-4 .0 mIU/m L. Not Available [address], [address], 08/17/2017 14:24:23 08/17/19 18 08/17/2017 renal funct ion panel , serum glucose 102 mg/dL 70-100 high Not Available [address], [address], 08/17/2017 15:39:12 08/17/19 18 08/17/2017 renal funct ion panel , serum BUN 18 mg/dL 7-18 Not Available [address], [address], 08/17/2017 15:39:12 08/17/19 18 08/17/2017 renal funct ion panel , serum creatinine 0.9 mg/dL 0.8-1. 3 Not Available [address], [address], 08/17/2017 15:39:12 08/17/19 18 08/17/2017 renal funct ion panel , serum B/C 20.0 ratio Not Available [address], [address], 08/17/2017 15:39:12 08/17/19 18 08/17/2017 renal funct ion panel , serum GFR -non 73.1 mL/mi n Recom zak d GFR by the Natio nal Kidne y Found ation >60 mL/mi n/1.7 3m2 - Giulia l <60 mL/mi n/1.7 3m2 - Chron ic Kidne y Disea se <15 mL/mi n/1.7 3m2 - Kidne y Failu re Not Available [address], [address], 08/17/2017 15:39:12 08/17/19 18 08/17/2017 renal funct ion panel , serum GFR - if 84.0 mL/mi n For Afric an Ameri can patie nts: Resul ts Multi plied by 1.21 Not Available [address], [address], 08/17/2017 15:39:12 08/17/19 18 08/17/2017 renal funct ion panel , serum sodium 143 mmol/ L 136-14 5 Not Available [address], [address], 08/17/2017 15:39:12 08/17/19 18 08/17/2017 renal funct ion panel , serum potassium 3.9 mmol/ L 3.5-5. 1 Not Available [address], [address], 08/17/2017 15:39:12 08/17/19 18 08/17/2017 renal funct ion panel , serum chloride 105 mmol/ L 96-107 Not Available [address], [address], 08/17/2017 15:39:12 08/17/19 18 08/17/2017 renal funct ion panel , serum anion gap 10.6 5.0-15 .0 Not Available [address], [address], 08/17/2017 15:39:12 08/17/19 18 08/17/2017 renal funct ion panel , serum CO2 27 mmol/ L 21-32 Not Available [address], [address], 08/17/2017 15:39:12 08/17/19 18 08/17/2017 renal funct ion panel , serum calcium 9.7 mg/dL 8.5-10 .3 Not Available [address], 8[address], 08/17/2017 15:39:12 08/17/19 18 08/17/2017 renal funct ion panel , serum albumin 4.2 g/dL 3.4-5. 0 Not Available [address], [address], 08/17/2017 15:39:12 08/17/19 18 08/17/2017 renal funct ion panel , serum phosphorous 3.00 mg/dL 2.50-4 .90 Not Available [address], [address], 08/17/2017 15:39:12 10/22/19 18 10/24/2017 renal funct ion panel , serum glucose 98 mg/dL 70-100 Not Available [address], 7[address], 10/24/2017 10:39:00 10/22/19 18 10/24/2017 renal funct ion panel , serum BUN 16 mg/dL 7-18 Not Available [address], 8[address], 10/24/2017 10:39:00 10/22/19 18 10/24/2017 renal funct ion panel , serum creatinine 0.9 mg/dL 0.8-1. 3 Not Available [address], 6[address], 10/24/2017 10:39:00 10/22/19 18 10/24/2017 renal funct ion panel , serum B/C 17.8 ratio Not Available [address], [address], 10/24/2017 10:39:00 10/22/19 18 10/24/2017 renal funct ion panel , serum GFR -non 73.1 mL/mi n Recom zak d GFR by the Natio nal Kidne y Found ation >60 mL/mi n/1.7 3m2 - Giulia l <60 mL/mi n/1.7 3m2 - Chron ic Kidne y Disea se <15 mL/mi n/1.7 3m2 - Kidne y Failu re Not Available [address], [address], 10/24/2017 10:39:00 10/22/19 18 10/24/2017 renal funct ion panel , serum GFR - if 84.0 mL/mi n For Afric an Amdelmy can patie nts: Resul ts Multi plied by 1.21 Not Available [address], [address], 10/24/2017 10:39:00 10/22/19 18 10/24/2017 renal funct ion panel , serum sodium 147 mmol/ L 136-14 5 high SUBHASH=V erifi ed by Greg lind Not Available [address], [address], 10/24/2017 10:39:00 10/22/19 18 10/24/2017 renal funct ion panel , serum potassium 4.2 mmol/ L 3.5-5. 1 Not Available [address], [address], 10/24/2017 10:39:00 10/22/19 18 10/24/2017 renal funct ion panel , serum chloride 106 mmol/ L 96-107 Not Available [address], [address]662, 10/24/2017 10:39:00 10/22/19 18 10/24/2017 renal funct ion panel , serum anion gap 10.3 5.0-15 .0 Not Available [address], 18[address], 10/24/2017 10:39:00 10/22/19 18 10/24/2017 renal funct ion panel , serum CO2 31 mmol/ L 21-32 Not Available [address], [address], 10/24/2017 10:39:00 10/22/19 18 10/24/2017 renal funct ion panel , serum calcium 9.1 mg/dL 8.5-10 .3 Not Available [address], [address], 10/24/2017 10:39:00 10/22/19 18 10/24/2017 renal funct ion panel , serum albumin 4.2 g/dL 3.4-5. 0 Not Available [address], [address], 10/24/2017 10:39:00 10/22/19 18 10/24/2017 renal funct ion panel , serum phosphorous 3.90 mg/dL 2.50-4 .90 Not Available [address], [address], 10/24/2017 10:39:00 10/22/19 18 10/24/2017 T4, free, serum free T4 0.75 NG/dL 0.75-1 .54 Not Available [address], [address], 10/24/2017 14:06:26 10/22/19 18 10/24/2017 PTH (para thyro id hormo ne), intac t, serum or plasm a PTH intact 35.5 pg/mL 9.6-66 .3 Not Available [address], [address], 10/24/2017 14:06:27 10/22/19 18 10/24/2017 vitam in [...] er than 30 ng/mL . Not Available [address], [address], 10/24/2017 14:06:27 10/22/19 18 10/24/2017 TSH, serum or plasm a TSH 2.77 uIU/m L 0.50-6 .00 The Ameri can Colle ge of Endoc rinol ogy and Ameri can Thyro id Assoc iatio n recom mend goal TSH value s betwe en 0.4-4 .0 mIU/m L. Not Available [address], [address], 10/24/2017 14:23:16 04/25/20 18 04/26/2018 renal funct ion panel , serum glucose 127 mg/dL 70-100 high LIPG= Speci men Marke dly Lipem ic. Chem Resul ts may be effec naresh. Not Available [address], [address], 04/26/2018 09:52:19 04/25/20 18 04/26/2018 renal funct ion panel , serum BUN 12 mg/dL 7-18 Not Available [address], [address], 04/26/2018 09:52:19 04/25/20 18 04/26/2018 renal funct ion panel , serum creatinine 0.9 mg/dL 0.8-1. 3 Not Available [address], [address], 04/26/2018 09:52:19 04/25/20 18 04/26/2018 renal funct ion panel , serum B/C 13.3 ratio Not Available [address], [address], 04/26/2018 09:52:19 04/25/20 18 04/26/2018 renal funct ion panel , serum GFR -non 72.8 mL/mi n Recom zak d GFR by the Natio nal Kidne y Found ation >60 mL/mi n/1.7 3m2 - Giulia l <60 mL/mi n/1.7 3m2 - Chron ic Kidne y Disea se <15 mL/mi n/1.7 3m2 - Kidne y Failu re Not Available [address], [address], 04/26/2018 09:52:19 04/25/20 18 04/26/2018 renal funct ion panel , serum GFR - if 83.7 mL/mi n For Afric an Ameri can patie nts: Resul ts Multi plied by 1.21 Not Available [address], [address], 04/26/2018 09:52:19 04/25/20 18 04/26/2018 renal funct ion panel , serum sodium 145 mmol/ L 136-14 5 Not Available [address], [address], 04/26/2018 09:52:19 04/25/20 18 04/26/2018 renal funct ion panel , serum potassium 4.3 mmol/ L 3.5-5. 1 Not Available [address], [address], 04/26/2018 09:52:19 04/25/20 18 04/26/2018 renal funct ion panel , serum chloride 105 mmol/ L 96-107 Not Available [address], [address], 04/26/2018 09:52:19 04/25/20 18 04/26/2018 renal funct ion panel , serum anion gap 10.3 5.0-15 .0 Not Available [address], [address], 04/26/2018 09:52:19 04/25/20 18 04/26/2018 renal funct ion panel , serum CO2 30 mmol/ L 21-32 Not Available [address], [address], 04/26/2018 09:52:19 04/25/20 18 04/26/2018 renal funct ion panel , serum calcium 8.8 mg/dL 8.5-10 .3 Not Available [address], [address], 04/26/2018 09:52:19 04/25/20 18 04/26/2018 renal funct ion panel , serum albumin 3.9 g/dL 3.4-5. 0 Not Available [address], [address], 04/26/2018 09:52:19 04/25/20 18 04/26/2018 renal funct ion panel , serum phosphorous 3.50 mg/dL 2.50-4 .90 Not Available [address], [address], 04/26/2018 09:52:19 04/25/20 18 04/26/2018 T4, free, serum free T4 0.72 NG/dL 0.75-1 .54 low Not Available [address], [address], 04/26/2018 10:13:26 04/25/20 18 04/26/2018 PTH (para thyro id hormo ne), intac t, serum or plasm a PTH intact 76.7 pg/mL 9.6-66 .3 high Not Available [address], [address], 04/26/2018 10:13:29 04/25/20 18 04/26/2018 vitam in [...] er than 30 ng/mL . Not Available [address], [address], 04/26/2018 10:13:30 04/25/20 18 04/26/2018 TSH, serum or plasm a TSH 1.91 uIU/m L 0.50-6 .00 The Ameri can Colle ge of Endoc rinol ogy and Ameri can Thyro id Assoc iatio n recom mend goal TSH value s betwe en 0.4-4 .0 mIU/m L. Not Available [address], [address], 04/26/2018 10:24:18 06/17/20 20 06/17/2020 US, thyro [...] Readin g Physic tung: [facility] [address], [place], [address], 07/14/2020 15:42:07 Result Notes None recorded. Problems Name Problem SNOMED Code Status Onset Date Resolution Date Notes Provider Name and Address Organization Details Recorded Time Hyperparathyro idism 94333123 [place], [address], [facility] [place] 14:23:16 Hypercholester olemia 87020735 Active Frida Noble LPN null, [facility] 6 09:45:14 Hypercalcemia 98706760 [place], [address], [facility] 6 14:23:16 Multinodular goiter 577403616 [place], [address], [facility] 6 15:43:53 Neoplasm of thyroid gland [id number] Michael Lewis MD [facility] [place], [address], [facility] 6 15:43:53 Problem Notes None recorded. Procedures Surgical History Date Name Laterality Status Provider Name and Address Organization Details Recorded Time 8 POC Urinalysis Testing completed Jacob Lewis MD [facility] [place], [address], [facility] 04/25/2018 11:32:35 8 POC Urinalysis Testing [place], [address], [facility] 10/21/2017 10:11:45 7 POC Urinalysis Testing [place], [address], [facility] 05/04/2017 17:05:41 7 POC Urinalysis Testing completed Jacob Lewis MD [facility] [place], [address], [facility] 10/21/2016 15:03:39 6 POC Urinalysis Testing completed Frida Noble LPN [facility] 03/19/2016 14:23:02 Imaging Results Imaging Date Name Status LastModified by Organiz ation Details LastModified Time 06/17/2020 [email or web address] [address] , [place], [address], 07/14/2020 15:42:07 Procedure Notes None recorded. Medical [...] Updated DateTime 7 164.465 cm 32.2 kg/m2 33783.7 4 g 66 /min 124 mm[Hg] 82 mm[Hg] Frida Noble LPN [facility] 7 16:48:33 Date Recorded Body height Body mass index (BMI) Body weight Heart rate Systolic blood pressure Diastolic blood pressure Provider Name and Address Organization Details Last Updated DateTime 8 165.1 cm 33.3 kg/m2 08779.9 1 g 76 /min 132 mm[Hg] 76 mm[Hg] Frida Noble LPN [facility] 8 09:42:20 Date Recorded Body height Body mass index (BMI) Body weight Heart rate Systolic blood pressure Diastolic blood pressure Provider Name and Address Organization Details Last Updated DateTime 8 165.1 cm 33.7 kg/m2 55302.1 g 94 /min 124 mm[Hg] 86 mm[Hg] Ana Menard NUCLEAR CRITICALITY SAFETY ENGINEER [address] [place] [address], [address] [place] [address] 8 11:16:32 Social History Question Answer Notes LastModified by Organizat ion Details LastModified Time Tobacco Smoking Status Never Smoker Frida Noble LPN [facility] 10/15/2015 13:10:54 What Is Your [...] murmur. Grandchildren- 2 and 1 coming (in [place]). Healthy No changes. 05/03- Kids OK (37 and 33). Grandkids (3)- youngest had surgery for hole in heart. 11/02- Kids OK (son going to [place] from [place]). Grandkids. 05/04- Family OK. Son in [place] ([place]). Grandkids in [place] but heading to [place] ([place]). Granddaughter will come to [place]. 06/06: Son doing OK (bought house and expecting new baby). Other son lives in [place]. Medical History No medical history recorded. Gynecological HistoryNo gynecological history recorded. Obstetrics History GPAL:G 0 P 0 0 0 0 Past Encounters Encounter ID Performer Location Encounter Start Date Encounter Closed Date Diagnosis/Indication Diagnosis SNOMED-CT Code Diagnosis ICD10 Code Diagnosis Note [id number] Jacob Lewis MD [facility], [address] [address] 10/15/2015 12:24:38 10/15/2015 14:24:34 Hypercalcemia 66785640 E83.52 Per records from [place] and also local. Need to find out what ULN was in labs to see if this is significan t She does not appear to have significan t sx from hypercalce grecia- this may be able to be monitored Hyperparathyroidism 3799 9008 E21.3 Likely etiology of hypercalce grecia. Evaluate U/S- if parathyroi d nodule identifiab le, could bx and check for PTH. Multinodular goiter 7702 19101 E04.9 Previous u/[place] suggested nodule on left over 2 cm. More recent suggests smaller but still around 1.4 cm. Update u/s with plan to do biopsy of left nodule and possibly parathyroi d nodule if visualized . 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 Has been on TUMS now at 1 pill per day.Check Renal panel to make sure calcium is OK>If it is, can stop taking TUMS. 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 Dysuria 67642202 R30.0 checked U/A which showed: positive blood , trace leuk, 2+ proteinWil l give 3 day course of bactrim. request C&S with cc to PCP.NKDA [id number] Jacob Lewis MD [facility], [address] [address] 10/21/2016 14:43:41 10/21/2016 15:53:05 Hyperparathyroidism 07860757 E21.3 Parathyroi d adenoma (left) removed (2015). Had taken 12 weeks of vitamin D to replace - level was down to 13.9 in 03/2016. See if she is fully replaced. 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 (in fact better at 1.67 than previous of 3.). [id number] Jacob Lewis MD [facility]ocr[facility], [address] [address] 05/04/2017 16:33:39 05/04/2017 17:21:16 Hyperparathyroidism 01766723 E21.3 Parathyroi d adenoma (left) removed (2015). Vit D had been down to 13.9 in 03/2016 but up to 30.3 after replacemen t in 10/2016.Las t PTH was 46.8 in 11/01. Update labs. 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 (in fact better at 1.67 than previous of .).Not on T4. [id number] Jacob Lewis MD [facility]ocr[facility], [address] [address] 10/21/2017 09:32:21 10/21/2017 10:33:57 Hyperparathyroidism 12382335 E21.3 Parathyroi d adenoma (left) removed (2015).PTH 65 in 08/04- but vitamin D is low.Try and replace vitamin D. Vit D has been down (13.9 in 03/2016) but up to 30.3 after replacemen t in 10/2016. 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 Vitamin D deficiency 347 19182 E55.9 Low value of 18.7 from 08/17/17.Re place and monitor labs. Has had high PTH of 65 despite having adenoma rmoved in past. [id number] Jacob Lewis MD Endocrino logy, [address] [phone] 04/25/2018 10:56:02 04/25/2018 11:51:47 Hyperparathyroidism [id number] E21.3 Parathyroi d adenoma (left) removed (2015).PTH 65 in 08/04- but vitamin D is low.Try and replace vitamin D. Vit D has been down (13.9 in 03/2016) but up to 30.3 after replacemen t in 10/2016. 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 Labs every 6 months Vitamin D deficiency 347 17978 E55.9 Barely over 20 in 2018 adn PTH better. Low value of 18.7 from 08/17/17. Had high PTH of 65 despite having adenoma removed in past. Monitor labs. [id number] Jacob Lewis MD Endocrino logy, [address] [phone] 06/09/2020 14:15:09 06/10/2020 07:20:43 Hyperparathyroidism [id number] E21.3 Update labs. Hx of Parathyroi d [...] decide on replacemen t. 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 Labs every 6 months Vitamin D deficiency 347 77467 E55.9 Barely over 20 in 2018 adn PTH better. Low value of 18.7 from 08/17/17. Had high PTH of 65 despite having adenoma removed in past. Monitor labs. Feeling of lump in throat [id number] F45.8 Check thyroid ultrasound [id number] Jacob Lewis MD Endocrino logy, [address] [phone] 07/14/2020 14:07:02 07/16/2020 09:34:31 Unilateral thyroid lobectomy [id number] Z90.89 s/p left hemithyroi dectomy for hyperparat [...] in 07/06- Natalie) Vitamin D deficiency 347 30039 E55.9 Vitamin D= 21.8 (06/06); was 22.7 (05/04); was 20.2 (11/02); was 18.7 (08/04); PTH= 34 (06/06); was 76.7 (05/04); was 35.5 (11/02); was 65 (08/04); Had high PTH despite having adenoma removed in past. Would like to see her vitamin D closer to 30. Monitor labs (ordered earlier 07/06). Feeling of lump in throat [id number] F45.8 Checked thyroid ultrasound and no nodules on right (s/p left yoon). Health Concerns Section Related Observation LastModified by Organization Detai ls LastModified Time None Recorded Concern Status LastModified by Organization Details LastModified Time None Recorded Advance Directives Directive None Recorded Payers Encounter Date Sequence Insurance Name Policy Number Policy Beltran Covered Member ID Beltran Member ID Guarantor Name 05/04/2017 1 [facility] [id number] Dorothy Rizo [id number] Dorothy Rizo 10/21/[address] [facility] TYPE II (HMO) [id number] Dorothy Rizo [id number] Dorothy Rizo 04/25/[address] [facility] TYPE II (HMO) [id number] Dorothy Rizo [id number] Dorothy Rizo 04/25/2018 1 [facility] [id number] Dorothy Rizo [id number] Dorothy Rizo 06/09/2020 1 [facility] ([facility] [id number] Dorothy Rizo [id number] Dorothy Rizo 07/14/2020 1 [facility] ([facility] [id number] Dorothy Rizo [id number] Dorothy Rizo Notes Date Note Type Note Provider Name and Address Organization Details Recorded Time 05/04/2017 text/html ThyroidReported bypatient.Previous Evaluation:Previous biopsies (date, cytology): (11/30 - Hurthle cells); TSH: (1.67 (10/01)); free T4: (0.79 (10/01)); Hemithyroidectomy 02/2016 ([facility]) Treatment:, dose: mcg (NO THYROID MEDS) Constitutional:no [...] staying asleep)Notes:PCP is now Les (works with [employer]) Had left hemithyroidectomy with hope that PTH problem (previous dx) was on left.Ended up with left yoon-thyroidectomy. [place] told [place] problem in [place]- had high calcium in blood. Told she [...] mouth, fingers or toes. Jacob Lewis MD [address] [place] [address], [phone], [facility] [place] 05/05/2017 09:34:39 10/21/2017 text/html ThyroidReported bypatient.Previous Evaluation:Previous biopsies (date, cytology): (11/30 - Hurthle cells); TSH: (4.1 (08/03); was 3.1 ; was 1.67 (10/01)); free T4: (0.68 (08/04); was 0. 63; was 0.79 (10/01)); Hem[facility]ro[facility]ctomy 02/2016 ([facility]) Treatment:, dose: mcg (NO THYROID MEDS) [...] yoon-thyroidectomy. [place] told [place] problem in [place]- had high calcium in blood. Told she could take calcium but don't take vitamin D. Also had BMD in [place]- told it was OK. No gastritis sx. [...] Occ cramping in fingers Jacob Lewis MD [address] [place] [address], [phone], [facility] [place] 10/21/2017 10:30:26 04/25/2018 text/html ThyroidReported bypatient.Previous Evaluation:Previous biopsies (date, cytology): (11/30 - Hurthle cells); TSH: (2.77 (11/02); was 4.1 (08/03); was 3.1 ; was 1.67 (10/01)); free T4: (0.75 (11/02); was 0.68 (08/04); was 0. 63; was 0.79 (10/01)); [facility] Treatment:, dose: mcg (NO THYROID MEDS) Constitutional:no cold intolerance (Generally runs cold.); no heat intolerance (Doesn't like the heat.); no weight loss;weight gain(2# up since last time); Feels very tired. Eyes:no double vision; no dry eyes Neck:no difficulty swallowing (sometimes has to take time to swallow.); no voice changes; no masses; Occ feels need to cough- no pain. Wilsons thread across neck- like a fishbone. Went to ENT in [place]. Told it was OK. Takes time to [...] yoon-thyroidectomy. [place] told [place] problem [place]- had high calcium in blood. Told she could take calcium but don't take vitamin D. Also had BMD in [place]- told it was OK. No gastritis sx. [...] fingersNo bruises or rashes. Jacob Lewis MD [address] [place] [address], [phone], [facility] [place] 04/25/2018 11:50:13 06/09/2020 text/html ThyroidReported bypatient.Previous Evaluation:Previous biopsies (date, cytology): (11/30 - Hurthle cells); TSH: (2.77 (11/02); was 4.1 (08/03); was 3.1 ; was 1.67 (10/01)); free T4: (0.75 (11/02); was 0.68 (08/04); was 0. 63; was 0.79 (10/01)); Hem[facility]ro[facility] 02/2016 ([facility]) Treatment:, dose: mcg (NO THYROID MEDS) [...] like a fishbone. Went to ENT in [place]. Told it was OK. Takes time to swallow. Currently feels it is a light thread Heart:no rapid heart rate; no palpitations; no chest pain; no tightness or pressure; Occ hard beating- lasts very briefly quickly by . GI:no diarrhea;constipation; Needs to have more water with flandreau/lemon juice. Sometimes smaller pieces Neurological:no tremor; no [...] yoon-thyroidectomy. [place] problem [place]- had high calcium in blood. Told she could take calcium but don't take vitamin D.06/06: Not taking weekly vitamin D. Also had BMD in [place]- told it was OK. No gastritis sx. [...] was notified that the provider location is [facility] [place] Patient location: home During the visit [...] or itching or rashes. Jacob Lewis MD [address] [place] [address], [phone], [facility] 06/09/2020 15:23:42 07/14/2020 text/html ThyroidReported bypatient.Previous Evaluation:Previous biopsies (date, cytology): (11/30 - Hurthle cells); TSH: (1.66 (06/06); was 2.77 (11/02); was 4.1 (08/03); was 3.1 ; was 1.67 (10/01)); free T4: (0.75 (06/06) was 0.72 (11/02); was 0.68 (08/04); was 0. 63; was 0.79 (10/01)); Hemithyroidectomy 02/2016 ([facility]) Treatment:, dose: mcg (NO THYROID MEDS) [...] neck- like a fishbone.Went to ENT in [place]. Told it was OK. Takes time to [...] stones. [place] problem [place]- had [place] calcium in blood. Told she could take calcium but don't take vitamin D. Reportedly had BMD in [place]- told it was OK. Hasn't wanted to take vitamin D with calcium given hx of Staghorn stone. PTH= 34 (06/06);Vitamin D= 21.8 (06/06); Did laser on stones earlier 2019. Takes lemon water to help with stones. Also told of high cholesterol in past. On atorva (40 mg) - sometimes, not all the time. 2-3x per week. PCP: Alissa Ashley ([place])Hx: Staghorn stones (Hasn't had f/u). Patient agreed to this visit via phone due to the COVID -19 pandemic. Patient understands this is a scheduled visit and the usual procedures with regard to billing and confidentiality apply. Patient was notified that the provider location is [facility] [place] Patient location: home During the visit [...] or itching or rashes. Jacob Lewis MD [address] [place] [address], [phone], [facility] [place] 07/16/2020 09:34:28 OBGyn Episode No OBEpisode recorded.
--- OUTSIDE RECORDS SUMMARY | 2024-10-25 16:57 | XMS_ITS | Encounter Summary ---
Author Organization [employer] Address [address] [facility] [address] [place] [address] Care Team Providers Care Stud Master/Mistress Name Role Phone Unavailable Primary Care Provider Unavailabl e Encounter Details Date Type Department Care Team (Latest Contact Info) Description 02/19/2022 Abstract [facility] CONVERSIONS Dental, Provider, DDS Social History [...]
--- OUTSIDE RECORDS SUMMARY | 2024-10-25 16:57 | XMS_ITS | Encounter Summary ---
Author Organization [employer] Address [address] [facility] [address] [place] [address] Care Team Providers Care Glass Wool Blanket Machine Feeder Name Role Phone Unavailable Primary Care Provider Unavailabl e Encounter Details Date Type Department Care Team ([facility] st Contact Info) Description 06/30/2023 Abstract [facility] ADULT DENTAL [address] [place] [address] Tomi Narvaez, DDS [address] [place] [address] Social History Tobacco Use Types Packs/Day Years [...]
--- OUTSIDE RECORDS SUMMARY | 2024-10-25 16:57 | XMS_ITS | Clinical Summary ---
Author Organization [employer] Address [address] [facility] [address] [place] [address] Care Team Providers Care Proposal Editor Name Role Phone Unavailable Primary Care Provider Unavailabl e Allergies No known active allergies Medications D3-50 1.25 MG (95255 [place]) capsule Take 50,000 Units by mouth 1 (one) time per week. 09/26/2023 Active lisinopril 5 MG tablet Take 5 mg by mouth Once per day. 03/15/2024 Active Active Problems No known active problems Encounters Date Type Department Care Team Description 08/01/2024 10:00 AM EST Office Visit [facility] ADULT DENTAL [address] [place] [address] Alayna Shahid DMD from Last 3 Months [...] Most Recently Relevant to Health Maintenance Insurance [facility]
--- OUTSIDE RECORDS SUMMARY | 2024-10-25 16:57 | XMS_ITS | Encounter Summary ---
Author Organization [employer] Address [address] [facility] [address] [place] [address] Care Team Providers Care Dryer Feeder Name Role Phone Unavailable Primary Care Provider Unavailabl e Reason for Visit * Reason Onset Date Comments rs no show 05/03/2024 Encounter Details Date Type Department Care Team (Late st Contact Info) Description 05/03/2024 Telephone [facility] ADULT DENTAL [address] [place] [address] Alayna Shahid DMD rs no show Social [...]
== END 2024-10-25 15:00 | disposition home or self-care (01) ==
LOC: HO.HOS 14:11
PROVIDERS: PCP Internal Medicine; Visit Provider Orthopaedic Surgery
DX: M17.11 Unilateral primary osteoarthritis, right knee (principal); S80.01XA Contusion of right knee, initial encounter
CPT/HCPCS: 20610; 99213

== ENCOUNTER → 2024-10-25 14:10 | Outpatient (BNVA) | payer OTHER, SELFPAY | PROVIDERS: PCP Internal Medicine; Visit Provider Orthopaedic Surgery | DX: S80.01XA Contusion of right knee, initial encounter (principal); M17.11 Unilateral primary osteoarthritis, right knee | CPT/HCPCS: 20610; J0665; J1100; J2003 ==

== ENCOUNTER 2024-10-31 11:40 | Outpatient (AMB) | payer OTHER, SELFPAY ==
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
[2024-10-31 12:44] VITALS: BP 148/82; PULSE 70; RESP 16; TEMP 36.6; O2SAT 99; BMI 35.9
--- OUTSIDE RECORDS SUMMARY | 2024-10-31 14:08 | XMS_ITS | Encounter Summary ---
Author Organization [employer] Address [address] [facility] [address] [place] [address] Care Team Providers Care Neon Glass Bender Name Role Phone Unavailable Primary Care Provider Unavailabl e Reason for Visit * Reason Onset Date Comments rs no show 05/03/2024 Encounter Details Date Type Department Care Team (Late st Contact Info) Description 05/03/2024 Telephone [facility] [address] [place] [address] Alayna Shahid DMD rs no show Social [...]
--- OUTSIDE RECORDS SUMMARY | 2024-10-31 14:08 | XMS_ITS | Encounter Summary ---
Author Organization [employer] Address [address] [facility] [address] [place] [address] Care Team Providers Care Data Scientist Name Role Phone Unavailable Primary Care Provider Unavailabl e Encounter Details Date Type Department Care Team (Latest Contact Info) Description 07/16/2019 Abstract [facility] CONVERSIONS Dental, Provider, DDS Social History Tobacco [...]
--- OUTSIDE RECORDS SUMMARY | 2024-10-31 14:08 | XMS_ITS | Encounter Summary ---
Author Organization [employer] Address [address] [facility] [address] [place] [address] Care Team Providers Care Testing Lead Name Role Phone Unavailable Primary Care Provider Unavailabl e Encounter Details Date Type Department Care Team (Latest Contact Info) Description 02/19/2022 Abstract [facility] CONVERSIONS Dental, Provider, DDS Social History Tobacco [...]
--- OUTSIDE RECORDS SUMMARY | 2024-10-31 14:08 | XMS_ITS | Encounter Summary ---
Author Organization [employer] Address [address] [facility] [address] [place] [address] Care Team Providers Care Product Safety Tester Name Role Phone Unavailable Primary Care Provider Unavailabl e Encounter Details Date Type Department Care Team ([facility] st Contact Info) Description 06/30/2023 Abstract [facility] ADULT DENTAL [address] [place] [address] Tomi Narvaez, DDS [address] [place] [address] Social History Tobacco Use Types Packs/Day Years [...]
--- OUTSIDE RECORDS SUMMARY | 2024-10-31 14:08 | XMS_ITS | Data Portability ---
Author Organization [facility], , [facility] Address [address] [place] [address] Care Team Providers Care Pack Worker Name Role Phone SERGIO ASHLEY Primary Care Provider [phone] Assessment Encounter Date Assessment Date Assessment LastModified [...] hormone), intact, serum or plasma 2019 020 [facility] (Lab), [address] [place] [address], [address], 1 16:18:45 vitamin D, 25-hydrox y, total, serum 2019 020 [facility] (Lab), [address] [place] [address], [address], 1 16:18:54 T4, free, serum 2019 020 [facility] (Lab), [address] [place], [address], 1 16:19:02 TSH, serum or plasma 2019 020 [facility] (Lab), [address] [place], [address], 1 16:19:10 T4, free, serum 2017 018 [facility], [address] [place] [address], [address], 8 10:13:28 TSH, serum or plasma 2017 018 [facility], [address] [place] [address], [address], 8 10:24:19 renal function panel, serum 2017 018 [facility], [address] [place] [address], [address], 8 09:52:21 PTH (parathyr oid hormone), intact, serum or plasma 2017 018 [facility], [address] [place] [address], [address], 8 10:13:29 vitamin D, 25-hydrox y, total, serum 2017 018 [facility], [address] [place] [address], [address], 8 10:13:30 T4, free, serum 2017 018 [facility], [address] [place] [address], [address], 8 14:06:26 TSH, serum or plasma 2017 018 [facility], [address] [place] [address], [address], 8 14:23:17 renal function panel, serum 2017 018 [facility], [address] [place] [address], [address], 8 10:39:03 PTH (parathyr oid hormone), intact, serum or plasma 2017 018 [facility], [address] [place] [address], [address], 8 14:06:27 vitamin D, 25-hydrox y, total, serum 2017 018 [facility], [address] [place] [address], [address], 8 14:06:28 T4, free, serum 2016 017 [facility], [address] [place] [address], [address], 7 13:38:52 TSH, serum or plasma 2016 017 [facility], [address] [place] [address], [address], 7 13:42:20 T4, free, serum 2016 018 [facility], [address] [place] [address], [address], 8 14:09:52 TSH, serum or plasma 2016 018 [facility], [address] [place] [address], 24792, 8 14:24:24 renal function panel, serum 2016 017 [facility], [address] [place] [address], [address], 7 15:39:28 PTH (parathyr oid hormone), intact, serum or plasma 2016 017 [facility], [address] [place] [address], 18[address], 7 10:56:17 vitamin D, 25-hydrox y, total, serum 2016 017 [facility], [address] [place] [address], 13341, 7 13:38:53 vitamin D, 25-hydrox y, total, serum 2016 018 [facility], [address] [place] [address], 35[address], 8 14:09:53 renal function panel, serum 2016 018 [facility], [address] [place] [address], [address], 8 15:39:14 PTH (parathyr oid hormone), intact, serum or plasma 2016 018 [facility], [address] [place] [address], [address], 8 14:09:53 Referral None recorded. Procedures None recorded. Surgeries None recorded. Imaging US, thyroid - please call patient to schedule on Tuesday AM. 2019 020 [facility] (Imaging), [address] [place], [address], 0 18:55:24 Medication Orders Vitamin D2 1,250 mcg (50,000 unit) capsule 2017 018 [email or web address] [id number], [address], [place], [phone], 0 14:44:16 Vitamin D2 1,250 mcg (50,000 unit) capsule 2017 018 [email or web address] [facility] #[id number], [address], [place], [phone], 0 14:44:16 Patient TargetsNo targets recorded. Patient Instructions Encounter Date Encounter Id Patient Instructions Last Modified By Organization Details Last Modified Time 05/04/2017 [id number] - Get labs done every 3 months. [email or web address] Not available 05/04/2017 17:19:20 6 months [email or web address] Not available 1 17:05:41 10/21/2017 [id number] - Get labs done every 3 months. - Take vitamin D one capsule every week. [email or web address] Not available 10/21/2017 10:28:45 6 months [email or web address] Not available 0 10/21/2017 10:11:45 04/25/2018 [id number] - Get labs done every 6 months. - Take vitamin D one capsule every week. [email or web address] Not available 04/25/2018 11:48:07 6 months [email or web address] Not available 1 11:32:36 06/09/2020 [id number] - Get labs done now and every 6 months. [email or web address] Not available 06/09/2020 15:21:18 Will need f/u to review labs and u/s study. Any 20 minute slot in 4-6 weeks? [email or web address] Not available 06/09/2020 15:22:53 07/14/2020 [id number] - Get labs done now and every 6 months. [email or web address] Not available 07/14/2020 15:43:52 one year 20 minutes [email or web address] Not available 07/16/2020 09:33:59 Reason for Referral None Reported. Results Created Date Observation Date Name Description Value Unit Range Abnormal Flag Note LastModifiedBy Organization Detail LastModifiedTime 05/16/20 17 05/16/2017 T4, free, serum free T4 0.63 NG/dL 0.75-1 .54 low Not Available [address], [address], 05/16/2017 13:38:52 05/16/20 17 05/16/2017 vitam in [...] er than 30 ng/mL . Not Available [address], [address], 05/16/2017 13:38:52 05/16/20 17 05/16/2017 TSH, serum or plasm a TSH 3.11 uIU/m L 0.50-6 .00 The Ameri can Colle ge of Endoc rinol ogy and Ameri can Thyro id Assoc iatio n recom mend goal TSH value s betwe en 0.4-4 .0 mIU/m L. Not Available [address], [address], 05/16/2017 13:42:19 05/16/20 17 05/16/2017 renal funct ion panel , serum glucose 93 mg/dL 70-100 Not Available [address], [address], 05/16/2017 15:39:28 05/16/20 17 05/16/2017 renal funct ion panel , serum BUN 14 mg/dL 7-18 Not Available [address], [address], 05/16/2017 15:39:28 05/16/20 17 05/16/2017 renal funct ion panel , serum creatinine 0.8 mg/dL 0.8-1. 3 Not Available [address], [address], 05/16/2017 15:39:28 05/16/20 17 05/16/2017 renal funct ion panel , serum B/C 17.5 ratio Not Available [address], [address], 05/16/2017 15:39:28 05/16/20 17 05/16/2017 renal funct ion panel , serum GFR -non 83.7 mL/mi n Recom zak d GFR by the Natio nal Kidne y Found ation >60 mL/mi n/1.7 3m2 - Giulia l <60 mL/mi n/1.7 3m2 - Chron ic Kidne y Disea se <15 mL/mi n/1.7 3m2 - Kidne y Failu re Not Available [address], [address], 05/16/2017 15:39:28 05/16/20 17 05/16/2017 renal funct ion panel , serum GFR - if 96.3 mL/mi n For Afric an Ameri can patie nts: Resul ts Multi plied by 1.21 Not Available [address], [address], 05/16/2017 15:39:28 05/16/20 17 05/16/2017 renal funct ion panel , serum sodium 142 mmol/ L 136-14 5 Not Available [address], [address], 05/16/2017 15:39:28 05/16/20 17 05/16/2017 renal funct ion panel , serum potassium 4.4 mmol/ L 3.5-5. 1 Not Available [address], [address], 05/16/2017 15:39:28 05/16/20 17 05/16/2017 renal funct ion panel , serum chloride 103 mmol/ L 96-107 Not Available [address], [address], 05/16/2017 15:39:28 05/16/20 17 05/16/2017 renal funct ion panel , serum anion gap 10.8 5.0-15 .0 Not Available [address], [address], 05/16/2017 15:39:28 05/16/20 17 05/16/2017 renal funct ion panel , serum CO2 28 mmol/ L 21-32 Not Available [address], [address], 05/16/2017 15:39:28 05/16/20 17 05/16/2017 renal funct ion panel , serum calcium 9.6 mg/dL 8.5-10 .3 Not Available [address], [address], 05/16/2017 15:39:28 05/16/20 17 05/16/2017 renal funct ion panel , serum albumin 3.9 g/dL 3.4-5. 0 Not Available [address], [address], 05/16/2017 15:39:28 05/16/20 17 05/16/2017 renal funct ion panel , serum phosphorous 3.60 mg/dL 2.50-4 .90 Not Available [address], [address], 05/16/2017 15:39:28 05/16/20 17 05/17/2017 PTH (para thyro id hormo ne), intac t, serum or plasm a PTH intact 31.5 pg/mL 9.6-66 .3 Not Available [address], [address], 05/17/2017 10:56:16 08/17/19 18 08/17/2017 T4, free, serum free T4 0.68 NG/dL 0.75-1 .54 low Not Available [address], [address], 08/17/2017 14:09:52 08/17/19 18 08/17/2017 PTH (para thyro id hormo ne), intac t, serum or plasm a PTH intact 65.0 pg/mL 9.6-66 .3 Not Available [address], [address], 08/17/2017 14:09:52 08/17/19 18 08/17/2017 vitam in [...] er than 30 ng/mL . Not Available [address], [address], 08/17/2017 14:09:53 08/17/19 18 08/17/2017 TSH, serum or plasm a TSH 4.10 uIU/m L 0.50-6 .00 The Ameri can Colle ge of Endoc rinol ogy and Ameri can Thyro id Assoc iatio n recom mend goal TSH value s betwe en 0.4-4 .0 mIU/m L. Not Available [address], [address], 08/17/2017 14:24:23 08/17/19 18 08/17/2017 renal funct ion panel , serum glucose 102 mg/dL 70-100 high Not Available [address], [address], 08/17/2017 15:39:12 08/17/19 18 08/17/2017 renal funct ion panel , serum BUN 18 mg/dL 7-18 Not Available [address], [address], 08/17/2017 15:39:12 08/17/19 18 08/17/2017 renal funct ion panel , serum creatinine 0.9 mg/dL 0.8-1. 3 Not Available [address], [address]87[address], 08/17/2017 15:39:12 08/17/19 18 08/17/2017 renal funct ion panel , serum B/C 20.0 ratio Not Available [address], [address]74, 08/17/2017 15:39:12 08/17/19 18 08/17/2017 renal funct ion panel , serum GFR -non 73.1 mL/mi n Recom zak d GFR by the Natio nal Kidne y Found ation >60 mL/mi n/1.7 3m2 - Giulia l <60 mL/mi n/1.7 3m2 - Chron ic Kidne y Disea se <15 mL/mi n/1.7 3m2 - Kidne y Failu re Not Available [address], [address], 08/17/2017 15:39:12 08/17/19 18 08/17/2017 renal funct ion panel , serum GFR - if 84.0 mL/mi n For Afric an Ameri can patie nts: Resul ts Multi plied by 1.21 Not Available [address], 213[address], 08/17/2017 15:39:12 08/17/19 18 08/17/2017 renal funct ion panel , serum sodium 143 mmol/ L 136-14 5 Not Available [address], 19[address], 08/17/2017 15:39:12 08/17/19 18 08/17/2017 renal funct ion panel , serum potassium 3.9 mmol/ L 3.5-5. 1 Not Available [address], [address]59, 08/17/2017 15:39:12 08/17/19 18 08/17/2017 renal funct ion panel , serum chloride 105 mmol/ L 96-107 Not Available [address], [address]68[address], 08/17/2017 15:39:12 08/17/19 18 08/17/2017 renal funct ion panel , serum anion gap 10.6 5.0-15 .0 Not Available [address], 67957, 08/17/2017 15:39:12 08/17/19 18 08/17/2017 renal funct ion panel , serum CO2 27 mmol/ L 21-32 Not Available [address], 13942, 08/17/2017 15:39:12 08/17/19 18 08/17/2017 renal funct ion panel , serum calcium 9.7 mg/dL 8.5-10 .3 Not Available [address], 8[address], 08/17/2017 15:39:12 08/17/19 18 08/17/2017 renal funct ion panel , serum albumin 4.2 g/dL 3.4-5. 0 Not Available [address], [address], 08/17/2017 15:39:12 08/17/19 18 08/17/2017 renal funct ion panel , serum phosphorous 3.00 mg/dL 2.50-4 .90 Not Available [address], [address], 08/17/2017 15:39:12 10/22/19 18 10/24/2017 renal funct ion panel , serum glucose 98 mg/dL 70-100 Not Available [address], [address], 10/24/2017 10:39:00 10/22/19 18 10/24/2017 renal funct ion panel , serum BUN 16 mg/dL 7-18 Not Available [address], [address]46, 10/24/2017 10:39:00 10/22/19 18 10/24/2017 renal funct ion panel , serum creatinine 0.9 mg/dL 0.8-1. 3 Not Available [address], 268[address], 10/24/2017 10:39:00 10/22/19 18 10/24/2017 renal funct ion panel , serum B/C 17.8 ratio Not Available [address], [address], 10/24/2017 10:39:00 10/22/19 18 10/24/2017 renal funct ion panel , serum GFR -non 73.1 mL/mi n Recom zak d GFR by the Natio nal Kidne y Found ation >60 mL/mi n/1.7 3m2 - Giulia l <60 mL/mi n/1.7 3m2 - Chron ic Kidne y Disea se <15 mL/mi n/1.7 3m2 - Kidne y Failu re Not Available [address], [address], 10/24/2017 10:39:00 10/22/19 18 10/24/2017 renal funct ion panel , serum GFR - if 84.0 mL/mi n For Afric an Amdelmy can patie nts: Resul ts Multi plied by 1.21 Not Available [address], [address], 10/24/2017 10:39:00 10/22/19 18 10/24/2017 renal funct ion panel , serum sodium 147 mmol/ L 136-14 5 high SUBHASH=V erifi ed by Greg lind Not Available [address], [address], 10/24/2017 10:39:00 10/22/19 18 10/24/2017 renal funct ion panel , serum potassium 4.2 mmol/ L 3.5-5. 1 Not Available [address], [address], 10/24/2017 10:39:00 10/22/19 18 10/24/2017 renal funct ion panel , serum chloride 106 mmol/ L 96-107 Not Available [address], [address], 10/24/2017 10:39:00 10/22/19 18 10/24/2017 renal funct ion panel , serum anion gap 10.3 5.0-15 .0 Not Available [address], [address], 10/24/2017 10:39:00 10/22/19 18 10/24/2017 renal funct ion panel , serum CO2 31 mmol/ L 21-32 Not Available [address], 27[address], 10/24/2017 10:39:00 10/22/19 18 10/24/2017 renal funct ion panel , serum calcium 9.1 mg/dL 8.5-10 .3 Not Available [address], [address], 10/24/2017 10:39:00 10/22/19 18 10/24/2017 renal funct ion panel , serum albumin 4.2 g/dL 3.4-5. 0 Not Available [address], [address], 10/24/2017 10:39:00 10/22/19 18 10/24/2017 renal funct ion panel , serum phosphorous 3.90 mg/dL 2.50-4 .90 Not Available [address], [address], 10/24/2017 10:39:00 10/22/19 18 10/24/2017 T4, free, serum free T4 0.75 NG/dL 0.75-1 .54 Not Available [address], [address], 10/24/2017 14:06:26 10/22/19 18 10/24/2017 PTH (para thyro id hormo ne), intac t, serum or plasm a PTH intact 35.5 pg/mL 9.6-66 .3 Not Available [address], [address], 10/24/2017 14:06:27 10/22/19 18 10/24/2017 vitam in [...] er than 30 ng/mL . Not Available [address], [address], 10/24/2017 14:06:27 10/22/19 18 10/24/2017 TSH, serum or plasm a TSH 2.77 uIU/m L 0.50-6 .00 The Ameri can Colle ge of Endoc rinol ogy and Ameri can Thyro id Assoc iatio n recom mend goal TSH value s betwe en 0.4-4 .0 mIU/m L. Not Available [address], [address], 10/24/2017 14:23:16 04/25/20 18 04/26/2018 renal funct ion panel , serum glucose 127 mg/dL 70-100 high LIPG= Speci men Marke dly Lipem ic. Chem Resul ts may be effec naresh. Not Available [address], [address], 04/26/2018 09:52:19 04/25/20 18 04/26/2018 renal funct ion panel , serum BUN 12 mg/dL 7-18 Not Available [address], [address], 04/26/2018 09:52:19 04/25/20 18 04/26/2018 renal funct ion panel , serum creatinine 0.9 mg/dL 0.8-1. 3 Not Available [address], [address], 04/26/2018 09:52:19 04/25/20 18 04/26/2018 renal funct ion panel , serum B/C 13.3 ratio Not Available [address], [address], 04/26/2018 09:52:19 04/25/20 18 04/26/2018 renal funct ion panel , serum GFR -non 72.8 mL/mi n Recom zak d GFR by the Natio nal Kidne y Found ation >60 mL/mi n/1.7 3m2 - Giulia l <60 mL/mi n/1.7 3m2 - Chron ic Kidne y Disea se <15 mL/mi n/1.7 3m2 - Kidne y Failu re Not Available [address], [address], 04/26/2018 09:52:19 04/25/20 18 04/26/2018 renal funct ion panel , serum GFR - if 83.7 mL/mi n For Afric an Ameri can patie nts: Resul ts Multi plied by 1.21 Not Available [address], [address], 04/26/2018 09:52:19 04/25/20 18 04/26/2018 renal funct ion panel , serum sodium 145 mmol/ L 136-14 5 Not Available [address], [address], 04/26/2018 09:52:19 04/25/20 18 04/26/2018 renal funct ion panel , serum potassium 4.3 mmol/ L 3.5-5. 1 Not Available [address], [address], 04/26/2018 09:52:19 04/25/20 18 04/26/2018 renal funct ion panel , serum chloride 105 mmol/ L 96-107 Not Available [address], [address], 04/26/2018 09:52:19 04/25/20 18 04/26/2018 renal funct ion panel , serum anion gap 10.3 5.0-15 .0 Not Available [address], [address], 04/26/2018 09:52:19 04/25/20 18 04/26/2018 renal funct ion panel , serum CO2 30 mmol/ L 21-32 Not Available [address], [address], 04/26/2018 09:52:19 04/25/20 18 04/26/2018 renal funct ion panel , serum calcium 8.8 mg/dL 8.5-10 .3 Not Available [address], [address], 04/26/2018 09:52:19 04/25/20 18 04/26/2018 renal funct ion panel , serum albumin 3.9 g/dL 3.4-5. 0 Not Available [address], [address], 04/26/2018 09:52:19 04/25/20 18 04/26/2018 renal funct ion panel , serum phosphorous 3.50 mg/dL 2.50-4 .90 Not Available [address], [address], 04/26/2018 09:52:19 04/25/20 18 04/26/2018 T4, free, serum free T4 0.72 NG/dL 0.75-1 .54 low Not Available [address], [address], 04/26/2018 10:13:26 04/25/20 18 04/26/2018 PTH (para thyro id hormo ne), intac t, serum or plasm a PTH intact 76.7 pg/mL 9.6-66 .3 high Not Available [address], [address], 04/26/2018 10:13:29 04/25/20 18 04/26/2018 vitam in [...] er than 30 ng/mL . Not Available [address], [address], 04/26/2018 10:13:30 04/25/20 18 04/26/2018 TSH, serum or plasm a TSH 1.91 uIU/m L 0.50-6 .00 The Ameri can Colle ge of Endoc rinol ogy and Ameri can Thyro id Assoc iatio n recom mend goal TSH value s betwe en 0.4-4 .0 mIU/m L. Not Available [address], [address], 04/26/2018 10:24:18 06/17/20 20 06/17/2020 US, thyro [...] Readin g Physic tung: [email or web address] [address], [place], [address], 07/14/2020 15:42:07 Result Notes None recorded. Problems Name Problem SNOMED Code Status Onset Date Resolution Date Notes Provider Name and Address Organization Details Recorded Time Hyperparathyro idism 11837855 [place], [address], [facility] 6 14:23:16 Hypercholester olemia 16318278 Active Frida Noble LPN null, [facility] 6 09:45:14 Hypercalcemia 05150506 [place], [address], [facility] 6 14:23:16 Multinodular goiter 972353292 [place], [address], [facility] 6 15:43:53 Neoplasm of thyroid gland 102023299 Michael Lewis MD [facility] [place], [address], [facility] 6 15:43:53 Problem Notes None recorded. Procedures Surgical History Date Name Laterality Status Provider Name and Address Organization Details Recorded Time 8 POC Urinalysis Testing completed Jacob Lewis MD [facility] [place], [address], [facility] 04/25/2018 11:32:35 8 POC Urinalysis Testing [place], [address], [facility] 10/21/2017 10:11:45 7 POC Urinalysis Testing [place], [address], [facility] 05/04/2017 17:05:41 7 POC Urinalysis Testing completed Jacob Lewis MD [facility] [place], [address], [facility] 10/21/2016 15:03:39 6 POC Urinalysis Testing completed Frida Noble LPN [facility] 03/19/2016 14:23:02 Imaging Results Imaging Date Name Status LastModified by Organiz ation Details LastModified Time 06/17/2020 [email or web address] [address] , [place], [address], 07/14/2020 15:42:07 Procedure Notes None recorded. Medical [...] Updated DateTime 7 164.465 cm 32.2 kg/m2 39113.7 4 g 66 /min 124 mm[Hg] 82 mm[Hg] Frida Noble LPN [facility] 7 16:48:33 Date Recorded Body height Body mass index (BMI) Body weight Heart rate Systolic blood pressure Diastolic blood pressure Provider Name and Address Organization Details Last Updated DateTime 8 165.1 cm 33.3 kg/m2 23857.9 1 g 76 /min 132 mm[Hg] 76 mm[Hg] Frida Noble LPN [facility] 8 09:42:20 Date Recorded Body height Body mass index (BMI) Body weight Heart rate Systolic blood pressure Diastolic blood pressure Provider Name and Address Organization Details Last Updated DateTime 8 165.1 cm 33.7 kg/m2 80543.1 g 94 /min 124 mm[Hg] 86 mm[Hg] Ana Menard KIER OPERATOR [address] [place] [address], [address] [place] [address] 8 11:16:32 Social History Question Answer Notes LastModified by Organizat ion Details LastModified Time Tobacco Smoking Status Never Smoker Frida Noble LPN [facility] 10/15/2015 13:10:54 What Is Your Level [...] murmur. Grandchildren- 2 and 1 coming (in [place]). Healthy No changes. 05/03- Kids OK (37 and 33). Grandkids (3)- youngest had surgery for hole in heart. 11/02- Kids OK (son going to [place] from [place]). Grandkids. 05/04- Family OK. Son in [place] ([place]). Grandkids in [place] but heading to [place] ([place]). Granddaughter will come to [place]. 06/06: Son doing OK (bought house and expecting new baby). Other son lives in [place]. Medical History No medical history recorded. Gynecological HistoryNo gynecological history recorded. Obstetrics History GPAL:G 0 P 0 0 0 0 Past Encounters Encounter ID Performer Location Encounter Start Date Encounter Closed Date Diagnosis/Indication Diagnosis SNOMED-CT Code Diagnosis ICD10 Code Diagnosis Note [id number] Jacob Lewis MD [facility], [address] [address] 10/15/2015 12:24:38 10/15/2015 14:24:34 Hypercalcemia 58392875 E83.52 Per records from [place] and also local. Need to find out what ULN was in labs to see if this is significan t She does not appear to have significan t sx from hypercalce grecia- this may be able to be monitored Hyperparathyroidism 0899 9008 E21.3 Likely etiology of hypercalce grecia. Evaluate U/S- if parathyroi d nodule identifiab le, could bx and check for PTH. Multinodular goiter 0230 [address]06 E04.9 Previous u/s in [place] suggested nodule on left over 2 cm. More recent suggests smaller but still around 1.4 cm. Update u/s with plan to do biopsy of left nodule and possibly parathyroi d nodule if visualized . 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 Has been on TUMS now at 1 pill per day.Check Renal panel to make sure calcium is OK>If it is, can stop taking TUMS. 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 Dysuria 66613659 R30.0 checked U/A which showed: positive blood , trace leuk, 2+ proteinWil l give 3 day course of bactrim. request C&S with cc to PCP.NKDA [id number] Jacob Lewis MD [facility], [address] [address] 10/21/2016 14:43:41 10/21/2016 15:53:05 Hyperparathyroidism 90126624 E21.3 Parathyroi d adenoma (left) removed (2015). Had taken 12 weeks of vitamin D to replace - level was down to 13.9 in 03/2016. See if she is fully replaced. 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 (in fact better at 1.67 than previous of 3.). [id number] Jacob Lewis MD [facility]ocr[facility], [address] [address] 05/04/2017 16:33:39 05/04/2017 17:21:16 Hyperparathyroidism 25543842 E21.3 Parathyroi d adenoma (left) removed (2015). Vit D had been down to 13.9 in 03/2016 but up to 30.3 after replacemen t in 10/2016.Las t PTH was 46.8 in 11/01. Update labs. 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 (in fact better at 1.67 than previous of .).Not on T4. [id number] Jacob Lewis MD Endocrino logy, [address] [address] 10/21/2017 09:32:21 10/21/2017 10:33:57 Hyperparathyroidism [id number] E21.3 Parathyroi d adenoma (left) removed (2015).PTH 65 in 08/04- but vitamin D is low.Try and replace vitamin D. Vit D has been down (13.9 in 03/2016) but up to 30.3 after replacemen t in 10/2016. 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 Vitamin D deficiency 347 04384 E55.9 Low value of 18.7 from 08/17/17.Re place and monitor labs. Has had high PTH of 65 despite having adenoma rmoved in past. [id number] Jacob Lewis MD Endocrino logy, [address] [address] 04/25/2018 10:56:02 04/25/2018 11:51:47 Hyperparathyroidism [id number] E21.3 Parathyroi d adenoma (left) removed (2015).PTH 65 in 08/04- but vitamin D is low.Try and replace vitamin D. Vit D has been down (13.9 in 03/2016) but up to 30.3 after replacemen t in 10/2016. 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 Labs every 6 months Vitamin D deficiency 347 40781 E55.9 Barely over 20 in 2018 adn PTH better. Low value of 18.7 from 08/17/17. Had high PTH of 65 despite having adenoma removed in past. Monitor labs. [id number] Jacob Lewis MD Endocrino logy, [address] [address] 06/09/2020 14:15:09 06/10/2020 07:20:43 Hyperparathyroidism [id number] E21.3 Update labs. Hx of Parathyroi d [...] decide on replacemen t. 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 Labs every 6 months Vitamin D deficiency 347 18670 E55.9 Barely over 20 in 2018 adn PTH better. Low value of 18.7 from 08/17/17. Had high PTH of 65 despite having adenoma removed in past. Monitor labs. Feeling of lump in throat [id number] F45.8 Check thyroid ultrasound [id number] Jacob Lewis MD Endocrino logy, [address] [address] 07/14/2020 14:07:02 07/16/2020 09:34:31 Unilateral thyroid lobectomy [id number] Z90.89 s/p left hemithyroi dectomy for hyperparat [...] in 07/06- Natalie) Vitamin D deficiency 347 81624 E55.9 Vitamin D= 21.8 (06/06); was 22.7 (05/04); was 20.2 (11/02); was 18.7 (08/04); PTH= 34 (06/06); was 76.7 (05/04); was 35.5 (11/02); was 65 (08/04); Had high PTH despite having adenoma removed in past. Would like to see her vitamin D closer to 30. Monitor labs (ordered earlier 07/06). Feeling of lump in throat [id number] F45.8 Checked thyroid ultrasound and no nodules on right (s/p left yoon). Health Concerns Section Related Observation LastModified by Organization Detai ls LastModified Time None Recorded Concern Status LastModified by Organization Details LastModified Time None Recorded Advance Directives Directive None Recorded Payers Encounter Date Sequence Insurance Name Policy Number Policy Beltran Covered Member ID Beltran Member ID Guarantor Name 05/04/2017 1 [facility] [place] [facility] [id number] Dorothy Rizo [id number] Dorothy Rizo 10/21/2017 1 [facility] TYPE II (HMO) [id number] Dorothy Rizo [id number] Dorothy Rizo 04/25/2018 1 [facility] TYPE II (HMO) [id number] Dorothy Rizo [id number] Dorothy Rizo 04/25/2018 1 [facility] [id number] Dorothy Rizo [id number] Dorothy Rizo 06/09/2020 1 [facility] [id number] Dorothy Rizo [id number] Dorothy Rizo 07/14/2020 1 [facility] [id number] Dorothy Rizo [id number] Dorothy Rizo Notes Date Note Type Note Provider Name and Address Organization Details Recorded Time 05/04/2017 text/html ThyroidReported bypatient.Previous Evaluation:Previous biopsies (date, cytology): (11/30 - Hurthle cells); TSH: (1.67 (10/01)); free T4: (0.79 (10/01)); Hemithyroidectomy 02/2016 ([facility]) Treatment:, dose: mcg (NO THYROID MEDS) [...] staying asleep)Notes:PCP is now Les (works with [employer]) Had left hemithyroidectomy with hope that PTH problem (previous dx) was on left.Ended up with left yoon-thyroidectomy. [place] problem in [place]- had high calcium in blood. Told she [...] mouth, fingers or toes. Jacob Lewis MD [address] [place] [address], [phone], [facility] 05/05/2017 09:34:39 10/21/2017 text/html ThyroidReported bypatient.Previous Evaluation:Previous biopsies (date, cytology): (11/30 - Hurthle cells); TSH: (4.1 (08/03); was 3.1 ; was 1.67 (10/01)); free T4: (0.68 (08/04); was 0. 63; was 0.79 (10/01)); Hemithyroidectomy 02/2016 ([facility]) Treatment:, dose: mcg (NO THYROID MEDS) [...] yoon-thyroidectomy. [place] problem [place]- had high calcium in blood. Told she could take calcium but don't take vitamin D. Also had BMD in [place]- told it was OK. No gastritis sx. [...] Occ cramping in fingers Jacob Lewis MD [address] [place] [address], [phone], [facility] 10/21/2017 10:30:26 04/25/2018 text/html ThyroidReported bypatient.Previous Evaluation:Previous biopsies (date, cytology): (11/30 - Hurthle cells); TSH: (2.77 (11/02); was 4.1 (08/03); was 3.1 ; was 1.67 (10/01)); free T4: (0.75 (11/02); was 0.68 (08/04); was 0. 63; was 0.79 (10/01)); Hemithyroidectomy 02/2016 ([facility]) Treatment:, dose: mcg (NO THYROID MEDS) Constitutional:no cold intolerance (Generally runs cold.); no heat intolerance (Doesn't like the heat.); no weight loss;weight gain(2# up since last time); Feels very tired. Eyes:no double vision; no dry eyes Neck:no difficulty swallowing (sometimes has to take time to swallow.); no voice changes; no masses; Occ feels need to cough- no pain. [place] thread across neck- like a fishbone. Went to ENT in [place]. Told it was OK. Takes time to [...] yoon-thyroidectomy. [place] problem in [place]- had high calcium in blood. Told she could take calcium but don't take vitamin D. Also had BMD in [place]- told it was OK. No gastritis sx. [...] fingersNo bruises or rashes. Jacob Lewis MD [address] [place] [address], [phone], [facility] 04/25/2018 11:50:13 06/09/2020 text/html ThyroidReported bypatient.Previous Evaluation:Previous biopsies (date, cytology): (11/30 - Hurthle cells); TSH: (2.77 (11/02); was 4.1 (08/03); was 3.1 ; was 1.67 (10/01)); free T4: (0.75 (11/02); was 0.68 (08/04); was 0. 63; was 0.79 (10/01)); Hem[facility]roidectomy 02/2016 ([facility]) Treatment:, dose: mcg (NO THYROID [...] like a fishbone. Went to ENT in [place]. Told it was OK. Takes time to swallow. Currently feels it is a light thread Heart:no rapid heart rate; no palpitations; no chest pain; no tightness or pressure; Occ hard beating- lasts very briefly quickly by . GI:no diarrhea;constipation; Needs to have more water with [employer]/lemon juice. Sometimes smaller pieces Neurological:no tremor; no [...] yoon-thyroidectomy. [place] problem in [place]- had high calcium in blood. Told she could take calcium but don't take vitamin D.06/06: Not taking weekly vitamin D. Also had BMD in [place]- told it was OK. No gastritis sx. [...] was notified that the provider location [place] [facility] [place] location: home During [...] or itching or rashes. Jacob Lewis MD [address] [place] [address], [phone], [facility] 06/09/2020 15:23:42 07/14/2020 text/html ThyroidReported bypatient.Previous Evaluation:Previous biopsies (date, cytology): (11/30 - Hurthle cells); TSH: (1.66 (06/06); was 2.77 (11/02); was 4.1 (08/03); was 3.1 ; was 1.67 (10/01)); free T4: (0.75 (06/06) was 0.72 (11/02); was 0.68 (08/04); was 0. 63; was 0.79 (10/01)); Hem[facility]roidectomy 02/2016 ([facility]) Treatment:, dose: mcg (NO THYROID MEDS) [...] neck- like a fishbone.Went to ENT in [place]. Told it was OK. Takes time to [...] stones. Originally [place] problem in [place]- had high calcium in blood. Told she could take calcium but don't take vitamin D. Reportedly had [place] in [place]- told it was OK. Hasn't wanted to take vitamin D with calcium given hx of Staghorn stone. PTH= 34 (06/06);Vitamin D= 21.8 (06/06); Did laser on stones earlier 2019. Takes lemon water to help with stones. Also told of high cholesterol in past. On atorva (40 mg) - sometimes, not all the time. 2-3x per week. PCP: Alissa Ashley ([place])Hx: Staghorn stones (Hasn't had f/u). Patient agreed to this visit via phone due to the COVID -19 pandemic. Patient understands this is a scheduled visit and the usual procedures with regard to billing and confidentiality apply. Patient was notified that the provider location is [facility] Patient location: home During [...] or itching or rashes. Jacob Lewis MD [address] [place] [address], [phone], [facility] 07/16/2020 09:34:28 OBGyn Episode No OBEpisode recorded.
--- OUTSIDE RECORDS SUMMARY | 2024-10-31 14:09 | XMS_ITS | Clinical Summary ---
Author Organization [employer] Address [address] [place] [address] Care Team Providers Care Window Caser Name Role Phone Unavailable Primary Care Provider Unavailabl e Allergies No known active allergies Medications D3-50 1.25 MG (97682 UT) capsule Take 50,000 Units by mouth 1 (one) time per week. 09/26/2023 Active lisinopril 5 MG tablet Take 5 mg by mouth Once per day. 03/15/2024 Active Active Problems No known active problems Social History Tobacco Use Types Packs/Day Years [...] Full Mouth 08/28/2019 08/27/2016 COVID-19 Vaccine ( - season) 2024 04/29/2021, 04/08/2021 Influenza Vaccine (#1) [...] Procedure Name Priority Date/Time Associated Diagnosis Comments BITEWING - SINGLE RADIOGRAPHIC IMAGE Routine 03/30/2024 1:00 PM EDT Full PROPHYLAXIS - ADULT Routine 024 2:00 PM EDT PERIODIC ORAL EVALUATION - ESTABLISHED PATIENT Routine 12/06/2023 2:00 PM EDT INTRAORAL - COMPLETE SERIES OF RADIOGRAPHIC IMAGES Routine 08/27/2016 12:00 AM EST from Last 3 Months or Most Recently Relevant to Health Maintenance Insurance [facility]
== END 2024-10-31 13:57 | disposition home or self-care (01) ==
LOC: HO.HMCC 11:40
PROVIDERS: PCP Internal Medicine; Visit Provider Internal Medicine
DX: Z00.00 Encounter for general adult medical examination without abnormal findings (principal); E78.5 Hyperlipidemia, unspecified; E66.9 Obesity, unspecified; Z68.35 Body mass index [BMI] 35.0-35.9, adult; I10 Essential (primary) hypertension; R73.01 Impaired fasting glucose; L60.2 Onychogryphosis; H61.22 Impacted cerumen, left ear; Z71.89 Other specified counseling

== ENCOUNTER → 2024-10-31 11:40 | Outpatient (BNVA) | payer OTHER, SELFPAY | PROVIDERS: PCP Internal Medicine; Visit Provider Internal Medicine | DX: Z00.01 Encounter for general adult medical examination with abnormal findings (principal); E78.5 Hyperlipidemia, unspecified; I10 Essential (primary) hypertension; E66.9 Obesity, unspecified; R73.01 Impaired fasting glucose; L60.2 Onychogryphosis; H61.20 Impacted cerumen, unspecified ear; Z79.899 Other long term (current) drug therapy; Z71.89 Other specified counseling | CPT/HCPCS: 96127 ==

== ENCOUNTER → 2024-11-09 12:28 | Outpatient (BNVA) | payer OTHER, SELFPAY | PROVIDERS: PCP Internal Medicine ==

== ENCOUNTER 2024-12-05 10:00 | Outpatient (RCR) | payer OTHER, SELFPAY ==
--- NOTE | 2024-11-28 11:41 | MHC.PT.EP ---
[facility] [place] Office [place] Office [place] Office [address] Rosaura Bates [address] [phone] F: [phone] F: [phone] F: [phone] F: [phone] Physical Therapy Plan of Care Date of Evaluation: 11/28/24 Date of Surgery: n/a Diagnosis: unilateral primary OA of R knee Assessment: Patient is a 64 year old female presenting to PT with complaints of pain in her R knee. Pt reports onset of pain began August 2024 due to slipping and falling on ice cream or mustard at the mall. She presents today with impairments in pain, ROM, hip strength, knee strength, gait mechanics. 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 Pt expresses salvage determiner goal of reducing pain, and is motivated to work towards this in PT. Clinical presentation today is most consistent with signs and sx associated with R knee pain and pt will benefit from skilled PT 2 week x 4 weeks to address the following problems and impairments noted upon evaluation: pain, ROM, hip strength, knee strength, gait mechanics. These problems limit the patient with the following functional activities: ambulating, stair negotiation, ADLs, work. The prescribed treatment plan of care is medically necessary. Co-morbidities of none were identified and taken into considerations of plan of care. Pt was educated on HEP, role of PT, prognosis, POC. Frequency and Duration: The patient will be seen 2 x week x 4 weeks Short Term Goals: Pt will demonstrate improved R knee ROM to equal B in 2 weeks. Pt will demonstrate improved R knee MMT by 1/3 grade in 2 weeks. Pt will demonstrate improved hip MMT strength by 1/3 grade in 2 weeks. Chcf Goals: Pt will demonstrate improved LEFI score by 9 points in 4 weeks for improved functional mobility. Pt will demonstrate ability to ambulate with normal mechanics in 4 weeks for return to PLOF. Pt will demonstrate ability to negotiate stairs with min to no pain in 4 weeks for improved access to her home. Treatment Plan: Modalities to reduce pain, spasms and effusion. Manual therapy to restore motion and function. Therapeutic exercise to improve strength and flexibility. Neuromuscular re-education for posture and balance. Therapeutic activities to return to functional activities of daily living. Electronically signed by: Saira Garcia, PT, DPT, ATC Please sign and return to therapist. Thank you for your referral.
--- NOTE | 2024-12-12 11:45 | MHC.PT.DC ---
[facility] [place] Office [place] Office [place] Office [address] [phone] F: [phone] F: [phone] F: [phone] F: [phone] Physical Therapy Discharge Report Diagnosis: unilateral primary OA of R knee Date of Surgery: n/a Date of Evaluation: 11/28/24 Date of Discharge: 12/12/24 Treatments to Date: 2 Cancellations to Date: 1 No Shows to Date: 2 Discharge Status: Visit Non-compliance Discharge Summary: Pt has failed to comply with [facility] attendance policy and no showed 2 visits. Therefore to be d/c. Electronically signed by: Saira Garcia, PT, DPT, ATC Please sign and return to therapist. Thank you for your referral.
== END 2024-12-12 11:46 | disposition home or self-care (01) ==
LOC: HO.PTCHIC 10:00
PROVIDERS: PCP Internal Medicine; Visit Provider Internal Medicine
DX: M17.11 Unilateral primary osteoarthritis, right knee (principal)
CPT/HCPCS: 97110; 97161

== ENCOUNTER 2025-02-21 09:19 | Outpatient (REF) | payer OTHER, SELFPAY ==
--- OUTSIDE RECORDS SUMMARY | 2025-02-21 09:43 | XMS_ITS | Encounter Summary ---
Author Organization [employer] [facility] Address [address] [place] [address] [address] [place] [address] Care Team Providers Care Administrative Support Manager Name Role Phone Unavailable Primary Care Provider Unavailabl e Encounter Details Date Type Department Care Team (Latest Contact Info) Description 02/19/2022 Abstract [facility] CONVERSIONS Dental, Provider, DDS Social [...] as of this encounter Plan of Treatment Upcoming Encounters Date Type Department Care Team (Late st Contact Info) Description 02/22/2025 1:00 PM EDT Office Visit [facility] [address] [place] [address] Sarah Marrufo DDS [address] [place] [address] 07/22/2025 1:00 PM EST Office Visit [facility] [address] [place] [address] Kellen Correia documented as of this encounter Visit Diagnoses Not on filedocumented in this encounter
[2025-02-21 10:29] LABS: Hemoglobin A1C 141.8436 umol/L; Total Hemoglobin (HGBA1C) 3460.0226 umol/L
[2025-02-21 11:11] LABS: Cholesterol 231 mg/dL (<200); HDL Cholesterol 39 mg/dL (>40); Triglycerides 185 mg/dL (<150)
== END 2025-02-21 09:20 | disposition home or self-care (01) ==
LOC: HO.HMGCLDS 09:19
PROVIDERS: PCP Internal Medicine; Visit Provider Internal Medicine
DX: E66.811 Obesity, class 1 (principal); I10 Essential (primary) hypertension; E78.5 Hyperlipidemia, unspecified; R73.01 Impaired fasting glucose
CPT/HCPCS: 36415; 80061; 82947; 83036; 84443

== ENCOUNTER 2025-03-01 08:28 | Outpatient (AMB) | payer OTHER, SELFPAY ==
--- NOTE | 2025-03-01 08:36 | A.OFFPC_ITS ---
Intake Visit Reasons: F/u lipids, labs. [phone] ANDROID Outbound Call Center Representative Required: No Allergies No Known Allergies (No Known Allergies*) Allergy (Verified 03/01/25 09:02) Medication List - Last Reconciled 03/01/25 by Irma Villalobos MD lidocaine 5% 2 patches topical DAILY PRN lidocaine 5% 1 patch topical DAILY PRN lisinopril 5 mg PO DAILY Tobacco use date assessed: 03/01/25 Dental Screening Dental Screen Date: 03/01/25 Did you have a dental visit in the last 12 months?: Yes Did you have a dental problem in the last 6 months where you did not have access to dental care?: No Was dental information given to patient?: Patient has dentist HPI F/u lipids, labs. [phone] ANDROID HPI Details 64-year-old lady with hypertension, dysl ipidemia impaired fasting glucose, here today for a follow-up. Has been careful with her diet, avoiding a lot of sugary foods, cheeses, but admits to not getting much exercise except for when she is at work. Latest fasting labs showed hemoglobin A1c at 5.9%, but LDL cholesterol is still elevated and higher than last check. Denies any chest pain, no shortness of breath, no headache or lightheadedness reported. 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 Amrik Pulliam, Shannon Cali, Orlando Colby and colleagues, with an educational gillian from [employer]. Review of Systems Const Denies chills, Denies fatigue, Denies fever(s) and Denies weakness Eyes Denies change in vision ENT Denies dizziness, Denies nasal congestion, Denies nasal discharge and Denies sore throat Card Denies chest pain, Denies lightheadedness, Denies palpitations and Denies dyspnea Resp Denies chest congestion, Denies cough, Denies dyspnea and Denies wheezing GI Denies abdominal pain, Denies change in bowel habits and Denies heartburn Denies hematuria, Denies urinary frequency, Denies dysuria and Denies urinary urgency Skin/Breast Denies erythema and Denies skin swelling Neuro Denies dizziness and Denies weakness Psych Reports no additional complaints Endo Denies fatigue and Denies palpitations Andrew/Lymph Denies easy bruising Aller/Immun Denies seasonal rhinorrhea and Denies wheezing Physical exam (Primary Care) Tobacco/Smoking Status: Tobacco use Status Tobacco use date assessed 03/01/25 03/01/25 08:39 Patient Tobacco Use Status Never used Tobacco 03/01/25 08:39 e-Cigarette/Vaping Use Never Used 03/01/25 08:39 Thrive Assessment: Date of Thrive Assessment Date Thrive assessed 10/31/24 03/01/25 08:39 Telehealth Telehealth Telehealth Platform: [facility] Location of provider rendering services: practice address Location of patient: address on file Patient Identification confirmed using: Name, : Yes Telehealth method: video Patient verbally consented to treatment: Yes Patient verbally consented to billing insurance company: Yes Patient informed of any privacy concerns related to visit: Yes Minutes spent on Phone/Video with Pt.: 20 Results Reviewed Results Reviewed: Laboratory Tests 09/04/22 09/24/23 02/21/25 16:47 10:11 09:30 WBC 8.7 Hgb 13.2 Hct 40.4 Plt Count 205 Estimat Average Glucose 123 Hemoglobin A1c % 5.9 Triglycerides 214 H Cholesterol 208 H LDL Cholesterol, Calc 130 H HDL Cholesterol 36 L 25-OH Vitamin D Total 23.0 L Name: Dorothy Choi Age/Sex: 64/F : 1960 Unit#: [id number] Attend Dr: Irma Villalobos MD Re02/21/25 Status: DEP REF Location: [facility] Disch: SPEC : [id number] GITA: 02/21/25 STATUS: COMP REQ : [id number] RECD: 02/21/25-[address]: Irma Villalobos MD COMP: 02/21/25 ENTERED: 02/21/[address]: ORDERED: Glu Fasting, Lipid Panel, TSH Rflx Test Result Flag Reference FBS 90 60-99 mg/dL Triglyceride 185 H <150 mg/dL Desirable Triglyceride: less than 150 mg/dL Borderline High Triglyceride 150-199 mg/dL High Triglyceride: 200-499 mg/dL Very High Triglyceride: greater than or equal to 5OO mg/dL Cholesterol 231 H <200 mg/dL Desirable Cholesterol: less than 200 mg/dL Borderline High Cholesterol: 200-239 mg/dL High Cholesterol: greater than 239 mg/dL LDL Calculated 155 H <100 mg/dL Desirable LDL: less than 100 mg/dL Near Optimal/Above Optimal LDL: 110-129 mg/dL Borderline High LDL: 130-159 mg/dL High LDL: 160-189 mg/dL Very High LDL: greater than or equal to 190 mg/dL HDL 39 L >40 mg/dL Desirable HDL: greater than 40 mg/dL Note: This HDL assay may give artificially low results in patients with liver disease. TSH 1.82 0.32-4.0 uIU/mL Coding Level of Care Code Tele Est Pt Level 4 (43322) Complex EM visit Add On G2211 Diagnoses Dyslipidemia E78.5 Essential hypertension I10 Impaired fasting glucose R73.01 Assessment & Plan Assessment & Plan (1) Dyslipidemia: Code(s): E78.5 - Hyperlipidemia, unspecified Category: Medical Plan: Will start on rosuvastatin 5 mg taken once a day. Reinforced importance of following a low-cholesterol diet, getting regular exercise. Will see her back for follow-up after fasting lipids done again in June 2025 (2) Essential hypertension: Code(s): I10 - Essential (primary) hypertension Category: Medical Plan: Continue with lisinopril 5 mg daily (3) Impaired fasting glucose: Code(s): R73.01 - Impaired fasting glucose Category: Medical Plan: Latest labs showed hemoglobin A1c now at 5.9%. Your previous fasting blood sugars were elevated above 100 mg/dL. Impaired glucose metabolism increases the risk for developing diabetes mellitus type 2, as well as heart attack and stroke later on. Lifestyle changes that promotes weight loss, healthy eating habits, and regular exercise are important, and can prevent the progression to diabetes Orders: Orders Lipid Panel 06/17/25 E66.9 - Obesity, unspecified, E78.5 - Hyperlipidemia, unspecified, I10 - Essential (primary) hypertension, R73.01 - Impaired fasting glucose Aspartate Amino Transferase 06/17/25 E66.9 - Obesity, unspecified, E78.5 - Hyperlipidemia, unspecified, I10 - Essential (primary) hypertension, R73.01 - Impaired fasting glucose Alanine Aminotransferase 06/17/25 E66.9 - Obesity, unspecified, E78.5 - Hyperlipidemia, unspecified, I10 - Essential (primary) hypertension, R73.01 - I mpaired fasting glucose Hemoglobin A1c 06/17/25 E66.9 - Obesity, unspecified, E78.5 - Hyperlipidemia, unspecified, I10 - Essential (primary) hypertension, R73.01 - Impaired fasting glucose Basic Metabolic Panel Fasting 06/17/25 E66.9 - Obesity, unspecified, E78.5 - Hyperlipidemia, unspecified, I10 - Essential (primary) hypertension, R73.01 - Im paired fasting glucose Medications: New rosuvastatin 5 mg PO DAILY 90 tabs 2RF
--- OUTSIDE RECORDS SUMMARY | 2025-03-01 08:37 | XMS_ITS | Encounter Summary ---
Author Organization [employer] [facility] Address [address] [place] [address] Care Team Providers Care Aluminum Container Tester Name Role Phone Unavailable Primary Care Provider Unavailabl e Encounter Details Date Type Department Care Team (Latest Contact Info) Description 02/19/2022 Abstract [facility] CONVERSIONS Dental, Provider, DDS Social [...] Care Team (Late st Contact Info) Description 07/22/2025 1:00 PM EST Office Visit [facility] [address] [place] [address] Kellen Correia documented as of this encounter Visit Diagnoses Not on filedocumented in this encounter
== END 2025-03-01 09:30 | disposition home or self-care (01) ==
LOC: HO.HMCC 08:28
PROVIDERS: PCP Internal Medicine; Visit Provider Internal Medicine
DX: E78.5 Hyperlipidemia, unspecified (principal); I10 Essential (primary) hypertension; R73.01 Impaired fasting glucose

== ENCOUNTER 2025-07-03 09:22 | Outpatient (AMB) | payer OTHER, SELFPAY ==
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
[2025-07-03 09:31] VITALS: BP 126/74; PULSE 80; RESP 16; TEMP 36.8; O2SAT 98; BMI 35.8
--- OUTSIDE RECORDS SUMMARY | 2025-07-03 10:42 | XMS_ITS | Patient Health Record ---
Author Organization [facility] Rajwinder joseph Bergholz Address [address] [place] [address] Care Team Providers Care Product Management Intern Name Role Phone Wilfredo HALL, Irma Woody Primary Care Provider Un available María Lopez Unavailable [phone] Allergies Allergen (clinical drug ingredient) Drug/Non Drug Allergy documented on EMR Reaction Allergy Type Onset Date Status Butter Butter (uncoded) Unknown Allergy Act shelley Chocolate (uncoded) Unknown Allergy Active Dairy (uncoded) Unknown Allergy Acti ve Eggs (uncoded) Unknown Allergy Activ e Fruits (uncoded) Unknown Allergy Act shelley Reason For Referral No Information Medications Medication SIG (Take, Route, Frequency, Duration) Notes Start Date End Date Status Lisinopril 5 MG TAKE 1 TABLET BY ESTEE TH DAILY Oral; Duration: 90 Days Active Rosuvastatin Calcium 5 MG TAKE 1 TABLET BY MOUTH DAILY Oral; Duration: 90 Days Active Tretinoin 0.025 % APPLY A PEA SIZED AM OUNT TO FACE NIGHTLY TOLERATED External; Duration: 30 Days Active Ciclopirox 8 % 1 application thin f ilm topically to nails Externally Once a day; Duration: 30 days Active Ketoconazole 2 % 1 application Apply a thin layer to externally to feet, even between toes Twice a day; Duration: 30 days Active Tylenol Active Social History Tobacco Use: Social History Observation Description Date Details (start date - stop date) Never Smoker NA - NA Tobacco use other than smoking: Question Answer Notes Are you an other tobacco user? No Tobacco Control (Standard) Question Answer Notes Tobacco use: Nonsmoker Additional Findings: Tobacco non-user Current no nsmoker AUDIT-C (Standard) Question Answer Notes Did you have a drink containing alcohol in the p ast year? No Points 0 Interpretation Negative Vital Signs Heart Rate 77 /min 03/20/2025 Blood pressure diastolic 77 mm Hg 03/20/2025 Height 5ft 5in in 03/20/2025 Blood pressure systolic 125 mm Hg 03/20/2025 Weight 210 lbs 03/20/2025 BMI 34.94 kg/m2 03/20/2025 Encounters Encounter Location Date Provider Diagnosis [facility] [place] [address] [place] [address] 03/20/2025 María Lopez Onychomycosis B35.1 ; Pain in left toe(s) M79.675 and Tinea pedis of both feet B35.3 Assessments Encounter Date Diagnosis (ICD Code) Assessment Notes Treatment Notes Treatment Clinical Notes Section Notes 03/20/2025 Pain in left toe(s) (ICD-10 - M79.675) 03/20/2025 Onychomycosis (ICD-10 - B35.1) 03/20/2025 Tinea pedis of both feet (ICD-10 - B35.3) Patient Educated with: ATHELETE .pdf (ATHELETE .pdf) Plan Of Treatment Next Appt Details Provider Name:María Quevedo Alhaji ankit, 07/24/2025 10:00:00 AM, [address] [place] [address], [phone], Insurance Providers Payer Name Payer Address Payer Phone Subscriber Number Group Number Insured Name Patient Relationship to Insured Coverage Start Date Coverage End Date [facility] [address] [place] [address] [id number] Dorothy Jiang Self - patient is the insured 2 Medical (General) History Medical History History ICD Code Back,Hip,and Knee pain High Blood Pressure Kidney stones thyroid Measles Mumps Chicken pox Surgical History Surgery Date(Month/Year) kidney stones parathyroidectomy
--- OUTSIDE RECORDS SUMMARY | 2025-07-03 10:42 | XMS_ITS | Encounter Summary ---
Author Organization [employer] [facility] Address [address] [place] [address] [address] [address] Care Team Providers Care Second Shift Supervisor Name Role Phone Unavailable Primary Care Provider Unavailabl e Encounter Details Date Type Department Care Team (Late st Contact Info) Description 06/30/2023 Abstract [facility] ADULT DENTAL [address] [place] [address] Tomi Narvaez, DDS [address] [place] [address] Social History Tobacco Use Types Packs/Day Years [...] Care Team (Late st Contact Info) Description 07/04/2025 9:30 AM EST Office Visit [facility] [address] [place] [address] Sarah Marrufo, DDS [address] [place] [address] 07/22/2025 12:45 PM EST Office Visit [facility]ULT [facility] [address] [place] [address] Odell Lea documented as of this encounter Visit Diagnoses Not on filedocumented in this encounter
--- OUTSIDE RECORDS SUMMARY | 2025-07-03 10:42 | XMS_ITS | Encounter Summary ---
Author Organization [facility] Address [address] [place] [address] [address] [place] [address] Care Team Providers Care Hatchery Man Name Role Phone Unavailable Primary Care Provider Unavailabl e Encounter Details Date Type Department Care Team (Latest Contact Info) Description 02/19/2022 Abstract [facility] Dental, Provider, DDS Social History Tobacco [...] Description 07/04/2025 9:30 AM EST Office Visit [facility] ADULT DENTAL [address] [place] [address] Sarah Marrufo DDS [address] [place] [address] 07/22/2025 12:45 PM EST Office Visit [facility] ADULT D[facility]AL [address] [place] [address] Odell Lea documented as of this encounter Visit Diagnoses Not on filedocumented in this encounter
--- OUTSIDE RECORDS SUMMARY | 2025-07-03 10:42 | XMS_ITS | Clinical Summary ---
Author Organization [employer] Address [address] [place] [address] [address] [place] [address] Care Team Providers Care Occupational Rehabilitation Aide Name Role Phone Unavailable Primary Care Provider Unavailabl e Allergies No known active allergies Medications D3-50 1.25 MG (60597 UT) capsule Take 50,000 Units by mouth 1 (one) time per week. 4 Active lisinopril 5 MG tablet Take 5 mg by mouth Once per day. 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 Multinodular goiter 05/07/2025 Hyperparathyroidism 05/07/2025 Hypercholesterolemia 05/07/2025 Hypercalcemia 05/07/2025 Encounters Date Type Department Care Team Description 06/03/2025 Telephone [facility] ADULT DENTAL [address] [place] [address] Sarah Marrufo DDS 05/17/2025 10:00 AM EDT Office Visit [facility] ADULT D[facility] [address] [place] [address] Sarah Marrufo DDS 05/07/2025 8:00 AM EDT Office Visit [facility] ADULT D[facility] [address] [place] [address] Sarah Marrufo DDS 05/07/2025 Telephone [facility] AD[facility] [address] [place] [address] Sarah Marrufo DDS 05/06/2025 Telephone [facility] AD[facility] [address] [place] [address] Sarah Marrufo DDS from Last 3 Months Social History Tobacco Use Types Packs/Day Years Used Date Smoking Tobacco: Never Smokeless Tobacco: Never Tobacco Cessation:Counseling Given: Not Answered Alcohol Use Standard Drinks/Week Comments Defer 0 (1 standard drink = 0.6 oz pur e alcohol) Comments Unknown Sex and Gender Information Value Date Recorded Sex Assigned at Female 05/17/2022 10:16 AM EDT Legal Sex Female 10:16 AM EDT Gender Identity Choose not to disclose 10:16 AM EDT Sexual Orientation Choose not to disclose 2021 10:16 AM EDT Last Filed Vital Signs Vital Sign Reading Time Taken Comments Blood Pressure 122/82 05/07/2025 8:08 AM EDT Pulse 64 05/07/2025 8:08 AM EDT Temperature - - Respiratory Rate - - Oxygen Saturation - - Inhaled Oxygen Concentration - - Weight - - Height - - Body Mass Index - - Plan of Treatment Upcoming Encounters Date Type Department Care Team (Late st Contact Info) Description 07/04/2025 9:30 AM EST Office Visit [facility] ADULT D[facility]AL [address] [place] [address] Sarah Marrufo DDS [address] [place] [address] 07/22/2025 12:45 PM EST Office Visit [facility] ADULT D[facility]AL [address] [place] [address] Odell Lea Health Maintenance Due Date Last Done Comments CT Colonography 1962 Colonoscopy 1962 Colorectal Cancer Screening 1962 Depression Screening 1962 FIT DNA/Cologuard 1962 FIT 1962 FOBT 1962 HIV Screening 1962 Lipid Panel 1962 SDOH Screening 1962 Sigmoidoscopy 1962 Disability Screening 1962 Alcohol/Substance Use Screening 1974 Hepatitis C Screening 1980 Pap Smear 11/24/1983 Cervical Cancer Screening 1992 HPV/Cotest 1992 Mammogram 2002 Pneumococcal Vaccine: 50+ Years (1 of 1 - PCV) 2012 COVID-19 Vaccine (3 - season) 2025 04/29/2021, 04/08/2021 Influenza Vaccine (#1) 2025 Dental Oral Exam 07/20/2025 01/16/2025, , 05/16/2023, Additional history exists Dental Prophylaxis 07/20/2025 01/16/2025, 0 12/06/2023, 05/30/2023, Additional history exists Dental X-Ray: Bitewings 01/17/2026 01/17/20, 03/30/2024, 12/06/2023, Additional history exists Tobacco Screening 05/17/2026 05/17/2025 Dental X-Ray: Full Mouth 01/18/2028 01/16/2025, 08/18 DTaP/Tdap/Td Vaccines (2 - Td or Tdap) [...] patient's age to complete this topic Meningococcal B Vaccine Aged Out No l onger eligible based on patient's age to complete this topic Meningococcal Vaccine Aged Out No fracnes jeferson eligible based on patient's age to complete this topic RSV under 20 months Aged Out No longe r eligible based on patient's age to complete this topic Rotavirus Vaccines Aged Out No longer eligible based on patient's age to complete this topic Procedures Procedure Name Priority Date/Time Associated Diagnosis Comments NO CHARGE - REDO PROCEDURE Routine 05/17/2025 10:00 AM EDT CASE PRESENTATION, DETAILED AND EXTENSIVE TREATMENT PLANNING Routine 05/07/2025 8:00 AM EDT BITE REGISTRATION Routine 05/07/2025 8:0 0 AM EDT PROPHYLAXIS - ADULT Routine 01/16/2025 1 1:00 AM EDT Partial edentulism, unspecified edentulism class INTRAORAL - COMPLETE SERIES OF RADIOGRAPHIC IMAGES Routine 01/16/2025 11:00 AM EDT Partial edentulism, unspecified edentulism class PERIODIC ORAL EVALUATION - ESTABLISHED PATIENT Routine 01/16/2025 11:00 AM EDT Partial edentulism, unspecified edentulism class from Last 3 Months or Most Recently Relevant to Health Maintenance Insurance [facility] * Guarantor: Dorothy Rizo Account Type Relation to Patient Date of Phone Billing Address Personal/Family Self [address] [place]
--- OUTSIDE RECORDS SUMMARY | 2025-07-03 10:42 | XMS_ITS | Encounter Summary ---
Author Organization [employer] [facility] Address [address] [place] [address] [address], [place] [address] Care Team Providers Care Allergy Specialist Name Role Phone Unavailable Primary Care Provider Unavailabl e Reason for Visit * Reason Onset Date Comments rs no show 05/03/2024 Encounter Details Date Type Department Care Team (Late st Contact Info) Description 05/03/2024 Telephone [facility] ADULT DENTAL [address] [place] [address] Alayna Shahid DMD rs no show Social [...] documented in this encounter Plan of Treatment Upcoming Encounters Date Type Department Care Team (Late st Contact Info) Description 07/04/2025 9:30 AM EST Office Visit [facility] [address] [place] [address] Sarah Marrufo DDS [address] [place] [address] 07/22/2025 12:45 PM EST Office Visit [facility]ULT [facility] [address] [place] [address] Odell Lea documented as of this encounter Visit Diagnoses Not on filedocumented in this encounter
--- OUTSIDE RECORDS SUMMARY | 2025-07-03 10:42 | XMS_ITS | Encounter Summary ---
Author Organization [employer] [facility] Address [address] [place] [address] [address] [place] [address] Care Team Providers Care [place]ave [place] Hand Name Role Phone Unavailable Primary Care Provider [...] Description 07/04/2025 9:30 AM EST Office Visit [facility] [address] [place] [address] Sarah Marrufo DDS [address] [place] [address] 07/22/2025 12:45 PM EST Office Visit [facility] [address] [place] [address] Odell Lea documented as of this encounter Visit Diagnoses Not on filedocumented in this encounter
== END 2025-07-03 10:13 | disposition home or self-care (01) ==
LOC: HO.HMCC 09:23
PROVIDERS: PCP Internal Medicine; Visit Provider Internal Medicine
DX: I83.93 Asymptomatic varicose veins of bilateral lower extremities (principal); I10 Essential (primary) hypertension; Z23 Encounter for immunization

== ENCOUNTER → 2025-07-03 09:22 | Outpatient (BNVA) | payer OTHER, SELFPAY | PROVIDERS: PCP Internal Medicine; Visit Provider Internal Medicine | DX: I10 Essential (primary) hypertension (principal); I83.93 Asymptomatic varicose veins of bilateral lower extremities; I83.811 Varicose veins of right lower extremity with pain; Z23 Encounter for immunization; Z79.899 Other long term (current) drug therapy | CPT/HCPCS: 90471; 90656; 96127 ==

== ENCOUNTER 2025-07-05 08:53 | Outpatient (REF) | payer OTHER, SELFPAY ==
--- OUTSIDE RECORDS SUMMARY | 2025-07-04 09:30 | XMS_ITS | Encounter Summary ---
Author Organization [employer] Address [address] [place] [address] [address] [place] [address] Care Team Providers Care Duplex Trimmer Name Role Phone Unavailable Primary Care Provider Unavailabl e Reason for Visit * Reason Comments Dentures Wax try in Encounter Details Date Type Department Care Team ([facility] st Contact Info) Description 07/04/2025 9:30 AM EST Office Visit [facility] ADULT DENTAL [address] [place] [address] Sarah Marrufo DDS [address] [place] [address] Social History Tobacco Use Types Packs/Day Years Used Date Smoking Tobacco: Never Smokeless Tobacco: Never Alcohol Use Standard Drinks/Week Comments Defer 0 (1 standard drink = 0.6 oz pur e alcohol) Comments Unknown Sex and Gender Information Value Date Recorded Sex Assigned at Female 05/17/2022 10:16 AM EDT Legal Sex Female 10:16 AM EDT Gender Identity Choose not to disclose 10:16 AM EDT Sexual Orientation Choose not to disclose 2021 10:16 AM EDT documented as of this encounter Progress Notes * Sarah Marrufo DDS - 07/04/2025 9:30 AM EST Dental procedures in this visit D5110.9 - WAX TRY IN (Completed) Service provider: Sarah Marrufo DDS Billing provider: Aries Slaughter DMD Patient ID: Dorothy Rizo is a 64 y.o. adult. Time Out: Date: 07/04/2025 Location: [facility] Tooth: Maxilla Procedure: Wax Try In- Upper RPD Verified the above with patient, assistant food service manager, and provider. Confirmed via patient's chart, intraorally and by radiographs. Cloud Automation Tester: not applicable Wax try in done by Dr. Sarah Marrufo DDS for upper and lower acrylic complete/partial denture Risk, benefits, and alternatives discussed with the patient. CONSENT FORM INITIALED & SIGNED BY THE PATIENT AND COUNTER SIGNED BY DR. Sarah Marrufo DDS Medical history: Reviewed in EHR Vitals: There were no vitals taken for this visit. Allergies: Reviewed in EHR Medications: Reviewed in EHR - Upper partial denture try-in done. - Esthetics and phonetics approved by patient and provider. - Occlusion confirmed using articulating paper. - Case to be sent to: [facility] for Final fabrication Patient accepts all aspects of prosthesis and consents to proceed with final processing. Patient released in stable condition. Patient satisfied. NV: Insertion Provider: Dr. Sarah Marrufo DDS Organ Pipe Maker Metal: Elaina Bonilla Supervising Dentist: Dr. Narvaez documented in this encounter Plan of Treatment Upcoming Encounters Date Type Department Care Team (Late st Contact Info) Description 07/22/2025 12:45 PM EST Office Visit [facility] AD[facility] [address] [place] [address] Odell Lea documented as of this encounter Procedures Procedure Name Priority Date/Time Associated Diagnosis Comments WAX TRY IN Routine 07/04/2025 9:30 AM EST documented in this encounter Visit Diagnoses Not on filedocumented in this encounter
--- OUTSIDE RECORDS SUMMARY | 2025-07-05 09:14 | XMS_ITS | Encounter Summary ---
Author Organization [employer] [facility] Address [address] [place] [address] [address] [place] [address] Care Team Providers Care Quahogger Name Role Phone Unavailable Primary Care Provider Unavailabl e Encounter Details Date Type Department Care Team (Latest Contact Info) Description 02/19/2022 Abstract [facility] CONVERSIONS Dental, Provider, DDS Social History [...] Description 07/22/2025 12:45 PM EST Office Visit [facility] ADULT DENTAL [address] [place] [address] Odell Lea documented as of this encounter Visit Diagnoses Not on filedocumented in this encounter
--- OUTSIDE RECORDS SUMMARY | 2025-07-05 09:14 | XMS_ITS | Encounter Summary ---
Author Organization [employer] [facility] Address [address] [place] [address] [address], [place] [address] Care Team Providers Care Grocery Clerk Selling Name Role Phone Unavailable Primary Care Provider Unavailabl e Reason for Visit * Reason Onset Date Comments rs no show 05/03/2024 Encounter Details Date Type Department Care Team (Late st Contact Info) Description 05/03/2024 Telephone [facility] ADULT DENTAL [address] [place] [address] Alayna Shahid DMD rs no show Social [...] Description 07/22/2025 12:45 PM EST Office Visit [facility] ADULT DENTAL [address] [place] [address] Odell Lea documented as of this encounter Visit Diagnoses Not on filedocumented in this encounter
--- OUTSIDE RECORDS SUMMARY | 2025-07-05 09:14 | XMS_ITS | Clinical Summary ---
Author Organization [employer] Address [address] [facility] [address] [place] [address] Care Team Providers Care Electrician Technician Name Role Phone Unavailable Primary Care Provider Unavailabl e Allergies No known active allergies Medications D3-50 1.25 MG (63652 UT) capsule Take 50,000 Units by mouth [...] Encounters Date Type Department Care Team Description 07/04/2025 9:30 AM EST Office Visit [facility] [address] [place] [address] Sarah Marrufo DDS 06/03/2025 Telephone [facility] [address] [place] [address] Sarah Marrufo DDS 05/17/2025 10:00 AM EDT Office Visit [facility] [address] [place] [address] Sarah Marrufo DDS 05/07/2025 8:00 AM EDT Office Visit [facility] [address] [place] [address] Sarah Marrufo DDS 05/07/2025 Telephone [facility] [address] [place] [address] Sarah Marrufo DDS 05/06/2025 Telephone [facility] [address] [place] [address] Sarah Marrufo DDS from Last 3 Months [...] Description 07/22/2025 12:45 PM EST Office Visit [facility] [address] [place] [address] Odell Lea Health Maintenance Due Date Last [...] of 1 - PCV) 2012 COVID-19 Vaccine ( season) 2025 04/29/2021, 04/08/2021 Dental Oral Exam 07/20/2025 01/16/2025, , 05/16/2023, Additional history exists Dental Prophylaxis 07/20/2025 01/16/2025, 0 12/06/2023, 05/30/2023, Additional history exists Dental X-Ray: Bitewings 01/17/2026 01/17/20 25, 03/30/2024, 12/06/2023, Additional history exists Tobacco Screening 07/04/2026 07/04/2025 Dental X-Ray: Full Mouth 01/18/2028 01/16/2025, 08/18 DTaP/Tdap/Td Vaccines (2 - Td or Tdap) 09/22/2033 09/23/2023 RSV Patients and Patients Aged 60 years or older (1 - 1-dose 75+ series) 2037 Zoster Vaccines Completed 10/06/2022, 03/19/2022 Influenza Vaccine Completed 07/03/2025 HIB Vaccines Aged Out No longer eligi [...] TRY IN Routine 07/04/2025 9:30 AM EST NO CHARGE - REDO PROCEDURE Routine 05/17/2025 [...] Most Recently Relevant to Health Maintenance Insurance [address] [facility]
--- OUTSIDE RECORDS SUMMARY | 2025-07-05 09:14 | XMS_ITS | Patient Health Record ---
Author Organization [facility] Rajwinder joseph Dalzell Address [address] [facility] [place] [address] Care Team Providers Care Child Care Aide Name Role Phone Wilfredo HALL, Irma Woody Primary Care Provider Un available María Lopez Unavailable [phone] Allergies Allergen (clinical drug ingredient) Drug/Non Drug [...] 03/20/2025 Encounters Encounter Location Date Provider Diagnosis [facility] [address] [place] [address] 03/20/2025 María Lopez Onychomycosis B35.1 ; Pain [...] Name:María Quevedo Alhaji ankit, 07/24/2025 10:00:00 AM, [address] [place] [address], [phone], Insurance Providers Payer Name Payer Address Payer Phone Subscriber Number Group Number Insured Name Patient Relationship to Insured Coverage Start Date Coverage End Date [facility] [address] [place] [address] [id number] Dorothy Jiang Self - patient is the insured 2 Medical (General) History Medical History History ICD Code Back,Hip,and Knee pain High Blood Pressure Kidney stones thyroid Measles Mumps Chicken pox Surgical History Surgery Date(Month/Year) kidney stones parathyroidectomy
--- OUTSIDE RECORDS SUMMARY | 2025-07-05 09:14 | XMS_ITS | Encounter Summary ---
Author Organization [employer] [facility] Address [address] [facility] [address] [place] [address] Care Team Providers Care Hotel Security Officer Name Role Phone Unavailable Primary Care Provider Unavailabl e Encounter Details Date Type Department Care Team (Late st Contact Info) Description 06/30/2023 Abstract [facility] ADULT DENTAL [address] [place] [address] Tomi Narvaez, XIOMARAS [address] [place] [address] Social History Tobacco Use Types Packs/Day Years [...] Description 07/22/2025 12:45 PM EST Office Visit [facility] ADULT DENTAL [address] [place] [address] Odell Lea documented as of this encounter Visit Diagnoses Not on filedocumented in this encounter
--- OUTSIDE RECORDS SUMMARY | 2025-07-05 09:14 | XMS_ITS | Encounter Summary ---
Author Organization [employer] Address [address] [facility] [address] [place] [address] Care Team Providers Care Home Worker Name Role Phone Unavailable Primary Care Provider Unavailabl e Encounter Details Date Type Department Care Team (Latest Contact Info) Description 07/16/2019 Abstract [facility] CONVERSIONS Dental, Provider, DDS Social [...] Description 07/22/2025 12:45 PM EST Office Visit [facility] ADULT D[facility]AL [address] [place] [address] Odell Lea documented as of this encounter Visit Diagnoses Not on filedocumented in this encounter
[2025-07-05 10:25] LABS: Alanine Aminotransferase 27 U/L (0-31); Anion Gap 12 (12-20); Aspartate Amino Transferase 25 U/L (5-31); Blood Urea Nitrogen 19 mg/dL (9-16); Calcium 9.6 mg/dL (8.4-10.2); Carbon Dioxide 27 mmol/L (22-29); Chloride 105 mmol/L (96-108); Cholesterol 194 mg/dL (<200); Estimated Glomerular Filt Rate > 60; HDL Cholesterol 44 mg/dL (>40); Potassium 4.1 mmol/L (3.3-5.1); Sodium 140 mmol/L (135-145); Triglycerides 143 mg/dL (<150)
== END 2025-07-05 08:54 | disposition home or self-care (01) ==
LOC: HO.LAB 08:53
PROVIDERS: PCP Internal Medicine; Visit Provider Internal Medicine
DX: I10 Essential (primary) hypertension (principal); E78.5 Hyperlipidemia, unspecified; E66.9 Obesity, unspecified; R73.01 Impaired fasting glucose
CPT/HCPCS: 36415; 80048; 80061; 83036; 84450; 84460